=== PATIENT | female | born 1960 | race Caucasian/White ===

== ENCOUNTER 2018-09-03 02:21 | Outpatient (CLI) | payer MEDICAID, SELFPAY ==
--- NOTE | 2018-09-03 07:26 | DI.RAD_ITS ---
SYMPTOM/DIAGNOSIS: BILAT PAIN IN JOINTS, M25.541 BILATERAL HANDS: Three views of each hand were obtained. There is mild nonspecific demineralization of the bones. There is mild narrowing of IP cartilaginous joint spaces consistent with degenerative change. There are a few minimal osteophytes associated with the bones at the IP joints. No other significant abnormality is seen. 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
--- NOTE | 2018-09-03 08:00 | DI.US_ITS ---
SYMPTOM/DIAGNOSIS: LUQ ABD PAIN, R10.12 ABDOMEN ULTRASOUND: The visualized liver parenchyma is mildly echogenic raising the possibility of hepatic steatosis. No focal hepatic lesion identified. Some portions of the liver were not visualized due to body habitus. There is no evidence of cholelithiasis or biliary dilatation. Pancreas not well visualized. Abdominal aorta and IVC are of normal diameter. The kidneys are unremarkable in appearance except for presence of a couple of small echogenic foci with mild posterior acoustic shadowing in the right kidney, the possibility of non obstructing nephrolithiasis is raised. Spleen is unremarkable in appearance. CONCLUSION: No evidence of cholelithiasis. Question non obstructing right nephrolithiasis.
== END 2018-09-03 02:41 ==
PROVIDERS: PCP Nurse Practitioner Family; Visit Provider Nurse Practitioner Family
DX: R10.12 Left upper quadrant pain (principal); N28.9 Disorder of kidney and ureter, unspecified; M79.641 Pain in right hand; M79.642 Pain in left hand; M19.041 Primary osteoarthritis, right hand; M19.042 Primary osteoarthritis, left hand
CPT/HCPCS: 73130; 76700

== ENCOUNTER 2018-09-15 09:19 | Outpatient (REF) | payer MEDICAID, SELFPAY ==
[2018-09-15 13:21] LABS: ALT 29 U/L (12-78); AST 14 U/L (15-37); Albumin 3.8 g/dL (3.4-5.0); Alkaline Phosphatase 100 U/L (46-116); Anion Gap 8.5 mmol/L (3-11); BUN 16 mg/dL (7-18); Bilirubin, Total 0.4 mg/dL (0.2-1.0); CO2 28.5 mmol/L (21.0-32.0); CREATININE 0.98 mg/dL (0.55-1.02); Calcium 9.1 mg/dL (8.5-10.1); Chloride 105 mmol/L (98-107); Cholesterol 147 mg/dL (50-200); Estimated GFR 58.09 (mL/min/1.73m2); Glucose 122 mg/dL (70-100); HDL Cholesterol 53 mg/dL (40-60); LDL CHOLESTEROL 78 mg/dL (<100); Potassium 4.1 mmol/L (3.5-5.1); Sodium 142 mmol/L (136-145); Total Protein 6.7 g/dL (6.4-8.2); Triglyceride 117 mg/dL (30-150)
[2018-09-15 13:22] LABS: Abs Immature Grans 0.01 k/cumm (0.0-0.09); Absolute Basophil Count 0.02 k/cumm (0.0-0.2); Absolute Eosinophil Count 0.15 k/cumm (0.0-0.7); Absolute Lymphocyte Count 2.23 k/cumm (1.2-3.4); Absolute Monocyte Count 0.42 k/cumm (0.11-0.7); Absolute Neutrophil Count 1.65 k/cumm (1.2-6.7); Basophils % 0.4; Eosinophils % 3.3; HCT 41.2 % (36.0-46.0); HGB 13.6 g/dL (12.0-15.5); Immature Grans % 0.2; Lymphocytes % 49.8; Mean Corpuscular Hemoglobin 30.7 pg (27.0-33.0); Mean Platelet Volume 9.8 fL (8.0-11.0); Monocytes % 9.4; Neutrophils % 36.9; Platelet Count 270 x1000/uL (130-400); RBC 4.43 m/cumm (4.00-5.20); RBC Distribution Width 12.7 % (11.7-14.6); White Blood Cell Count 4.48 k/cumm (4.4-10.8)
[2018-09-15 13:46] LABS: COMMENT (LAB VIEW ONLY) 191.08 mg/dL
== END 2018-09-15 09:39 ==
LOC: NCHCN 09:19
PROVIDERS: PCP Nurse Practitioner Family; Visit Provider Nurse Practitioner Family
DX: E78.5 Hyperlipidemia, unspecified (principal); E11.9 Type 2 diabetes mellitus without complications
CPT/HCPCS: 80053; 80061; 83721; 82043; 82570; 85025

== ENCOUNTER 2018-09-24 19:50 | Emergency (ER) | payer MEDICAID, SELFPAY ==
[2018-09-24 19:53] VITALS: BP 144/85; PULSE 110; RESP 16; TEMP 36.6; O2SAT 98
[2018-09-24 20:00] VITALS: RESP 16
--- NOTE | 2018-09-24 20:04 | ED.GENADUL_ITS ---
Discharge Plan Disposition Patient Disposition: HOME Condition: Stable Discharge Details Chief Complaint: GenMedical Clinical Impression: Vertigo, Sinusitis Primary Care Provider: Everett Ramirez ED Provider: Reddy Brooks [place] Meds and New Rx's Prescriptions: New azithromycin 500 mg tablet See Rx Instructions .ROUTE .COMPLEX Qty: 6 RF: 0 meclizine 25 mg tablet 25 mg PO BID-TID PRN (Reason: dizziness) Qty: 14 RF: 0 No Action hydroxyzine pamoate 25 mg capsule 25 mg PO QID PRN (Reason: itching) Qty: 30 RF: 3 gabapentin 800 MG tablet 800 mg PO TID RF: 0 bupropion HCl [Wellbutrin XL] 150 MG tablet extended release 24 hr 150 mg PO DAILY RF: 0 diphenoxylate-atropine [Lomotil] 1 EACH tablet 1 - 2 ea PO Q 6 HR PRN RF: 0 docusate sodium [Colace] 100 MG capsule 100 mg PO BID RF: 0 SAD LIGHT DAILY RF: 0 dicyclomine 10 MG capsule 10 mg PO QID RF: 0 soy isofla-blk cohosh-mag bark [Estroven] 155 MG capsule 155 mg PO DAILY RF: 0 rizatriptan [Maxalt] 10 MG tablet 10 mg PO ONCE Qty: 8 RF: 2 ranitidine HCl 15 MG/1 ML syrup 150 mg PO DAILY RF: 0 cyproheptadine 4 MG tablet 2 mg PO HS Qty: 30 RF: 3 pediatric multivitamin [Gummi Bear Multivitamin] 1 EACH tablet,chewable 2 ea PO DAILY RF: 0 ondansetron HCl 4 MG tablet 1 - 2 mg PO Q8H PRN Qty: 90 RF: 3 glyburide 5 mg tablet 5 mg PO DAILY RF: 0 pramipexole 0.125 mg tablet 0.125 mg PO QHS RF: 0 dicyclomine 10 mg capsule 10 mg PO QID RF: 0 lidocaine 5 % ointment 1 applic TP BID-QID PRNRF: 0 sertraline 100 mg tablet 100 mg PO DAILY RF: 0 valacyclovir [Valtrex] 500 mg tablet 500 mg PO Q12H RF: 0 triamcinolone acetonide 0.1 % cream 1 applic TP BID PRNRF: 0 rizatriptan [Maxalt-HADOOP JAVA DEVELOPER] 10 mg tablet,disintegrating 10 mg PO ONCE PRNRF: 0 docusate sodium [Colace] 100 mg capsule 100 mg PO BID RF: 0 nystatin 100,000 unit/gram powder 1 applic TP TID RF: 0 polyethylene glycol 3350 [Miralax] 17 gram/dose powder 17 gm PO DAILY RF: 0 sertraline 50 mg tablet 50 mg PO DAILY RF: 0 bupropion HCl [Wellbutrin XL] 150 mg tablet extended release 24 hr 450 mg PO QAM RF: 0 Advair HFA 230-21 mcg/actuation HFA aerosol inhaler 2 puff IH BID RF: 0 riboflavin (vitamin B2) 100 mg tablet 200 mg PO BID RF: 0 loperamide [Anti-Diarrhea] 2 MG tablet 2 mg PO PRN PRNRF: 0 fluticasone propion-salmeterol [Advair Diskus] 1 EACH blister with device 1 ea Inhalation BID RF: 0 docusate sodium [Colace] 100 MG capsule 100 mg PO PRN PRNRF: 0 lorazepam [Ativan] 1 MG tablet 1 mg PO TID PRN PRNRF: 0 levalbuterol tartrate [Xopenex HFA] 15 GM HFA aerosol inhaler 15 gm Inhalation Q6H PRN PRNRF: 0 nystatin (bulk) 1 EACH powder 1 ea Miscellaneous TID PRN PRNRF: 0 esomeprazole magnesium [Nexium] 20 MG capsule,delayed release(DR/EC) 40 mg PO BID RF: 0 calcium carbonate-vitamin D3 [Calcium 500 + D] 1 EACH tablet 1 tab PO DAILY RF: 0 montelukast [Singulair] 10 MG tablet 10 mg PO HS RF: 0 omega-3 fatty acids-fish oil [Fish Oil] 1 EACH capsule 1,000 mg PO PRN PRNRF: 0 meclizine [Antivert] 25 MG tablet 25 mg PO Q6H PRNQty: 30 RF: 0 Discharge Instructions Instructions: Vertigo (ED) Additional Instructions: follow up with your primary care provider in 1-2 weeks if not improving if you develop severe worsening symptoms or new symptoms such as high fevers or persistent vomit return to the emergency department Medical Decision Making 58 yo female states she has a hx of veritog and migraines and comes in with complaint of i ntermittent feeling the room spinning especially with head turning, and nasal congestion for 2 weeks with sinus pressure. Denies fevers, chills, weakness, vision changes. Also has a mild frontal headache she states started slowly earlier today and feels similar to her prior migraines. No meningismus on exam and appears well systemically so doubt statistical technician infection, no cranial nerve deficits and no other findings to suggest cerebral venous thrombosis or central sinus thrombosis. Reassuring hints exam, normal gait so doubt cva, I suspect benign vertigo and will tx with meclizine. Given over 10 days of sinus pressure and has maxillary tenderness here will tx with abx. She will f/u with pcp and return precautions given. Her headache is not worse of her life and did not reach peak intensity quickly so doubt sah Differential Diagnosis sinusitis, benign vertigo, tensin headache HPI General Mode of arrival: ambulatory . Date/Time Provider Initiated Documentation: 09/24/18 19:54 . Limitations to Documentation: no limitations . Information obtained by: patient . History of Present Illness 58 year old F presents to the emergency department with the chief complaint of sinus pressure, described as moderate, Quality is described as aching, and is localized to the face. Patient reports no radiation. Patient started experiencing this week(s) (2) and it has been constant. No relieving factors improve symptom(s), No exacerbating factors reported . Related Data Home Medications Medication Instructions Recorded Confirmed docusate sodium [Colace] 100 mg PO PRN PRN 10/29/12 02/08/18 fluticasone propion-salmeterol 1 ea INHALATION BID 10/29/12 02/08/18 [Advair Diskus] levalbuterol tartrate [Xopenex HFA] 15 gm INHALATION Q6H PRN PRN 10/29/12 02/08/18 loperamide [Anti-Diarrhea] 2 mg PO PRN PRN 10/29/12 02/08/18 lorazepam [Ativan] 1 mg PO TID PRN PRN 10/29/12 02/08/18 nystatin (bulk) 1 ea MISCELLANEOUS TID PRN PRN 10/29/12 02/08/18 esomeprazole magnesium [Nexium] 40 mg PO BID 02/15/13 02/08/18 calcium carbonate-vitamin D3 1 tab PO DAILY 11/03/13 02/08/18 [Calcium 500 + D] montelukast [Singulair] 10 mg PO HS 09/22/14 02/08/18 omega-3 fatty acids-fish oil [Fish 1,000 mg PO PRN PRN 09/22/14 02/08/18 Oil] bupropion HCl [Wellbutrin Xl] 150 mg PO DAILY tab-cap 06/20/15 02/08/18 gabapentin 800 mg PO TID tab-cap 06/20/15 02/08/18 meclizine [Antivert] 25 mg PO Q6H PRN #30 tab 02/09/16 02/08/18 Sad Light DAILY 04/09/17 02/08/18 diphenoxylate-atropine [Lomotil] 1 - 2 ea PO Q 6 HR PRN tab-cap 04/09/17 02/08/18 docusate sodium [Colace] 100 mg PO BID tab-cap 04/09/17 02/08/18 dicyclomine 10 mg PO QID tab-cap 04/30/17 02/08/18 rizatriptan [Maxalt] 10 mg PO ONCE #8 tab 12/01/17 soy isofla-blk cohosh-mag bark 155 mg PO DAILY 12/01/17 02/08/18 [Estroven 155 Mg Capsule] ranitidine HCl 150 mg PO DAILY ml 12/21/17 02/08/18 cyproheptadine 2 mg PO HS #30 tab-cap 01/04/18 ondansetron HCl 1 - 2 mg PO Q8H PRN #90 tab-cap 01/11/18 pediatric multivitamin [Gummi Bear 2 ea PO DAILY tab.chew 01/11/18 02/08/18 Multivitamin] hydroxyzine pamoate 25 mg capsule 25 mg PO QID PRN #30 cap 02/08/18 02/08/18 bupropion HCl XL 150 mg 24 hr 450 mg PO QAM tab 09/07/18 tablet, extended release dicyclomine 10 mg capsule 10 mg PO QID 09/07/18 docusate sodium 100 mg capsule 100 mg PO BID 09/07/18 fluticasone propionate-salmeterol 2 puff IH BID 09/07/18 230 mcg-21 mcg/actuation HFA inhaler glyburide 5 mg tablet 5 mg PO DAILY 09/07/18 lidocaine 5 % topical ointment 1 applic TP BID-QID PRN 09/07/18 nystatin 100,000 unit/gram topical 1 applic TP TID 09/07/18 powder polyethylene glycol 3350 17 17 gm PO DAILY 09/07/18 gram/dose oral powder pramipexole 0.125 mg tablet 0.125 mg PO QHS 09/07/18 riboflavin (vitamin B2) 100 mg 200 mg PO BID tab 09/07/18 tablet rizatriptan 10 mg disintegrating 10 mg PO ONCE PRN 09/07/18 tablet sertraline 100 mg tablet 100 mg PO DAILY 09/07/18 sertraline 50 mg tablet 50 mg PO DAILY 09/07/18 triamcinolone acetonide 0.1 % 1 applic TP BID PRN 09/07/18 topical cream valacyclovir 500 mg tablet 500 mg PO Q12H 09/07/18 azithromycin See Rx Instructions .ROUTE 09/24/18 .COMPLEX #6 tab meclizine 25 mg PO BID-TID PRN #14 tab 09/24/18 Previous Rx's Medication Instructions Recorded meclizine [Antivert] 25 mg PO Q6H PRN #30 tab 02/09/16 rizatriptan [Maxalt] 10 mg PO ONCE #8 tab 12/01/17 cyproheptadine 2 mg PO HS #30 tab-cap 01/04/18 ondansetron HCl 1 - 2 mg PO Q8H PRN #90 tab-cap 01/11/18 hydroxyzine pamoate 25 mg capsule 25 mg PO QID PRN #30 cap 02/08/18 azithromycin See Rx Instructions .ROUTE 09/24/18 .COMPLEX #6 tab meclizine 25 mg PO BID-TID PRN #14 tab 09/24/18 Allergies Allergy/AdvReac Type Severity Reaction Status Date / Time peanut Allergy Severe feels Unverified 02/08/18 13:50 like I am going to choke sertraline [From Zoloft] Allergy Severe Verified 09/07/18 14:15 clonazepam Allergy Intermediate I CAN'T Unverified 02/08/18 13:50 BREATHE TOO GOOD Sulfa (Sulfonamide Allergy Intermediate I CAN'T Unverified 02/08/18 13:50 Antibiotics) BREATHE GOOD, IT PATTERSON ME amoxicillin Allergy Unknown Unverified 02/08/18 13:50 ciprofloxacin [From Cipro] Allergy Unknown Unverified 02/08/18 13:50 ciprofloxacin HCl Allergy Unknown Unverified 02/08/18 13:50 [From Cipro] doxycycline Allergy Unknown Unverified 02/08/18 13:50 sulfamethoxazole Allergy Unknown unknown Unverified 02/08/18 13:50 [From Bactrim] trimethoprim [From Bactrim] Allergy Unknown unknown Unverified 02/08/18 13:50 paroxetine HCl [From Paxil] AdvReac Severe chest pain Unverified 02/08/18 13:50 Penicillins AdvReac Severe Unverified 02/08/18 13:50 aspirin AdvReac Intermediate IT PATTERSON Unverified 02/08/18 13:50 MY STOMACH duloxetine HCl AdvReac Intermediate suicidal Unverified 02/08/18 13:50 [From Cymbalta] ideation fluoxetine HCl [From Prozac] AdvReac Intermediate Skin Rash Unverified 02/08/18 13:50 latex AdvReac Intermediate Skin Rash Unverified 02/08/18 13:50 pregabalin [From Lyrica] AdvReac Unknown unknown Unverified 02/08/18 13:50 risperidone [From Risperdal] AdvReac Unknown unknown Unverified 02/08/18 13:50 venlafaxine HCl AdvReac Unknown unknown Unverified 02/08/18 13:50 [From Effexor] TRAZADONE Allergy Unknown Uncoded 02/08/18 13:50 Review of Systems Review of Systems All systems reviewed & are unremarkable except as noted in HPI and below Constitutional Denies chills, Denies fever(s) and Denies weakness ENT Denies change in voice Cardiovascular Denies chest pain and Denies dyspnea Respiratory Denies dyspnea Gastrointestinal Denies abdominal pain and Denies vomiting Musculoskeletal Denies joint swelling Integumentary/Breasts Denies rash Neurologic Denies weakness [facility] [place] Medical History Diabetic peripheral neuropathy associated with type 2 diabetes mellitus (Chronic) Restless leg syndrome (Chronic) Essential tremor (Chronic) Developmental delay, mild (Chronic) Tardive dyskinesia (Chronic) Obstructive sleep apnea on CPAP (Chronic) Fibromyalgia (Chronic) Chronic fatigue (Chronic) IBS (irritable bowel syndrome) (Chronic) Anxiety (Chronic) Hyperlipidemia (Chronic) History of tobacco use (Chronic) Asthma (Chronic) PTSD (post-traumatic stress disorder) (Chronic) Prediabetes (Chronic) Depression (Chronic) History of concussion (Chronic) GERD (gastroesophageal reflux disease) (Chronic) Chronic low back pain (Chronic) 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) Nausea (Chronic 01/11/18) Intractable migraine with aura without status migrainosus (Chronic 01/11/18) Chronic daily headache (Chronic 01/11/18) Abdominal pain (Acute) Adjustment disorder with depressed mood (Acute) Allergic rhinitis (Acute) Anxiety disorder (Acute) Back pain (Acute) Phillips angioma (Acute) Daytime somnolence (Acute) Diabetes mellitus type 2 in obese (Acute) Facial skin lesion (Acute) Genital herpes (Acute) Head injury (Acute) Joint pain in fingers of left hand (Acute) Joint pain in fingers of right hand (Acute) Memory deficit (Acute) Panic disorder (Acute) Plantar fasciitis (Acute) Rosacea (Acute) Seasonal allergies (Acute) Migraine (Chronic) Obesity (Chronic) Parkinsons disease (Chronic) Family History Sister Diabetes Migraine headache Daughter Stroke Other Breast cancer Hyperlipidemia Social History Smoking/Tobacco Use Status: Former Tobacco Use Alcohol Intake: never Drug use: Never Household members: significant other Do you feel safe at home: Yes Do you feel safe in your relationship?: Yes Additional Social history: She lives with her boyfriend and has 2 adult daughters. She is disabled from her chronic back pain and mood disorder. She does not use tobacco products, drink alcohol, or use illicit drugs Exam Const General: no acute distress Orientation: alert HENMT Head: normal to inspection Ears: external ears normal General nose exam: external nose normal Mouth: moist mucous membranes Eyes General: appearance normal, both eyes and all related structures Neck Neck: normal visual inspection Resp Effort & Inspection: normal respiratory effort and able to speak in complete sentences Cardio Rate: regular rate Skin General skin exam: no rashes or lesions noted Neuro General: alert and oriented x3 Extrem General: normal to inspection Psych Mental Status: mental status grossly normal
[2018-09-24] MEDS: Ketorolac 30 MG/ML VIAL IM (20:11)
[2018-09-24] MEDS: Meclizine 25 MG TAB PO (20:12)
[2018-09-24 20:42] VITALS: BP 144/85; PULSE 110; RESP 16; TEMP 36.6; O2SAT 98
== END 2018-09-24 20:12 | disposition home or self-care (01) ==
LOC: ER 20:08
PROVIDERS: Emergency Provider Emergency Medicine; PCP Nurse Practitioner Family
DX: J01.00 Acute maxillary sinusitis, unspecified (principal); R42 Dizziness and giddiness; R51 Headache; E11.9 Type 2 diabetes mellitus without complications; G20 Parkinson's disease
CPT/HCPCS: 96372; 99284; J1885

== ENCOUNTER 2018-12-16 14:15 | Outpatient (CLI) | payer MEDICAID, SELFPAY ==
--- NOTE | 2018-12-16 11:58 | DI.RAD_ITS ---
SYMPTOM/DIAGNOSIS: LEFT KNEE PAIN, RT KNEE PAIN LEFT KNEE: No bony or joint abnormality is seen. RIGHT KNEE: No bony or joint abnormality is seen.
== END 2018-12-16 14:35 ==
PROVIDERS: PCP Nurse Practitioner Family; Visit Provider Physician Assistant
DX: M25.561 Pain in right knee (principal); M25.562 Pain in left knee
CPT/HCPCS: 73560

== ENCOUNTER 2019-02-15 17:39 | Outpatient (REF) | payer MEDICAID, SELFPAY ==
--- NOTE | 2019-02-15 16:30 | PAPFT_PTH ---
PATIENT: Pinky Taylor LOC: [facility] U#:[id number] AGE/SX: 59/F ROOM: RE02/15/[address]: Everett Ramirez : 1960 BED: DIS: 02/15/2019 SPEC #: [id number] RECD: 02/16/19 12:56 STATUS: ASHLEY REQ #: [id number] LUNA: 02/15/19 16:[address]: Everett Ramirez DEPT: [facility] Cytology RECD BY: Cathi Cobb Tissues: 1 - CX/ENDOCX FOR PAP SMEARS Procedures: PAP THIN PREP/UVM Screening HPV DNA PROBE Comments: [id number]
[2019-02-15 18:34] LABS: HCT 44.8 % (36.0-46.0); HGB 14.8 g/dL (12.0-15.5); Mean Corpuscular Hemoglobin 30.5 pg (27.0-33.0); Mean Corpuscular Volume 92.2 fL (80-95); Mean Platelet Volume 10.5 fL (8.0-11.0); Platelet Count 289 x1000/uL (130-400); RBC 4.86 m/cumm (4.00-5.20); RBC Distribution Width 12.4 % (11.7-14.6); White Blood Cell Count 4.75 k/cumm (4.4-10.8)
[2019-02-15 18:39] LABS: Anion Gap 8.9 mmol/L (3-11); BUN 14 mg/dL (7-18); CO2 28.1 mmol/L (21.0-32.0); CREATININE 0.73 mg/dL (0.55-1.02); Calcium 9.1 mg/dL (8.5-10.1); Chloride 107 mmol/L (98-107); Glucose 101 mg/dL (70-100); Sodium 144 mmol/L (136-145)
== END 2019-02-15 17:59 ==
LOC: NCHCN 17:39
PROVIDERS: PCP Nurse Practitioner Family; Visit Provider Nurse Practitioner Family
DX: E11.9 Type 2 diabetes mellitus without complications (principal); R10.12 Left upper quadrant pain; Z12.4 Encounter for screening for malignant neoplasm of cervix; Z11.51 Encounter for screening for human papillomavirus (HPV)
CPT/HCPCS: 80048; 85027; 88142; 87624

== ENCOUNTER 2019-05-16 14:15 | Outpatient (REF) | payer MEDICAID, SELFPAY ==
[2019-05-16 19:49] LABS: HCT 43.8 % (36.0-46.0); HGB 14.5 g/dL (12.0-15.5); Mean Corp. HGB Concentration 33.1 g/dL (32.0-36.0); Mean Corpuscular Hemoglobin 30.3 pg (27.0-33.0); Mean Corpuscular Volume 91.4 fL (80-95); Mean Platelet Volume 10.4 fL (8.0-11.0); Platelet Count 301 x1000/uL (130-400); RBC 4.79 m/cumm (4.00-5.20); RBC Distribution Width 12.4 % (11.7-14.6); White Blood Cell Count 4.81 k/cumm (4.4-10.8)
[2019-05-16 20:03] LABS: Prothrombin Time 9.7 sec (9.3-11.0)
[2019-05-16 20:05] LABS: Iron 100 ug/dL (50-170); Total Iron Binding Capacity 257 ug/dL (250-450); Transferrin Sat 39 % (15-50)
[2019-05-16 20:20] LABS: Vitamin D 25 Total 26.4 ng/ml (30-100)
[2019-05-16 20:26] LABS: ALT 28 U/L (14-59); AST 15 U/L (15-37); Alkaline Phosphatase 116 U/L (46-116); Anion Gap 8.9 mmol/L (3-11); BUN 10 mg/dL (7-18); Bilirubin, Total 0.4 mg/dL (0.2-1.0); CO2 28.1 mmol/L (21.0-32.0); CREATININE 0.76 mg/dL (0.55-1.02); Calcium 9.1 mg/dL (8.5-10.1); Chloride 108 mmol/L (98-107); Ferritin 91 ng/mL (8-252); Glucose 122 mg/dL (74-106); Potassium 3.9 mmol/L (3.5-5.1); Sodium 145 mmol/L (136-145); TSH (W/Ref FT4) 0.79 uIU/mL (0.36-3.74); Total Protein 6.5 g/dL (6.4-8.2); Vitamin B12 668 pg/mL (193-986)
== END 2019-05-16 14:35 ==
LOC: NCHCN 14:15
PROVIDERS: PCP Nurse Practitioner Family; Visit Provider Nurse Practitioner Family
DX: G47.00 Insomnia, unspecified (principal); E11.9 Type 2 diabetes mellitus without complications; R41.3 Other amnesia; R42 Dizziness and giddiness; F41.8 Other specified anxiety disorders
CPT/HCPCS: 80053; 82306; 85027; 82607; 82728; 82746; 83540; 83550; 84443; 85610

== ENCOUNTER 2019-06-15 00:13 | Outpatient (CLI) | payer MEDICAID, SELFPAY ==
--- NOTE | 2019-06-15 14:51 | DI.MAMMO_ITS ---
EXAM: MG MAMMO SCREENING CLINICAL HISTORY: SCREENING Z12.39. TECHNIQUE: Bilateral full field digital CC and MLO mammographic images were obtained with 3D tomosyn thesis and utilizing computer aided detection (CAD). COMPARISON: Available for comparison. FINDINGS: Masses/Architectural Distortion: There is a focal asymmetric density in the upper central right breas t seen on the mediolateral oblique view. Asymmetric density in the medial left breast appears stable . Microcalcifications: No suspicious pleomorphic-type are seen. Skin Thickening/Nipple Retraction: None. IMPRESSION: 1. Focal asymmetric density in the upper central right breast. 2. Additional views of the right breast are requested for further evaluation. Ultrasound may be jess cated at that time. BI-RADS Cat 0 - Assessment Incomplete: Need additional imaging evaluation Breast Density - Category B - Scattered areas of fibroglandular density A negative radiographic report should not delay biopsy if a dominant or clinically suspicious mass is present. Up to ten percent of cancers are not identified on mammography. A negative report may reinforce clinical impression. Adenosis and dense breasts may obscure an underlying neoplasm. False positive reports average 6 to 10%. Patient will receive a letter notifying them of these results.
== END 2019-06-15 00:33 ==
PROVIDERS: PCP Nurse Practitioner Family; Visit Provider Nurse Practitioner Family
DX: Z12.31 Encounter for screening mammogram for malignant neoplasm of breast (principal); R92.8 Other abnormal and inconclusive findings on diagnostic imaging of breast
CPT/HCPCS: 77063; 77067

== ENCOUNTER 2019-06-18 14:56 | Emergency (ER) | payer MEDICAID, SELFPAY ==
[2019-06-18] VITALS (39 sets, daily range): BP systolic 113–151; BP diastolic 69–95; PULSE 78–92; RESP 8–20; TEMP 36.9–37.1; O2SAT 95–100
--- NOTE | 2019-06-18 15:04 | ED.GENADUL_ITS ---
Discharge Plan Disposition Patient Disposition: HOME Discharge Details Chief Complaint: Chest Pain Clinical Impression: Chest pain Primary Care Provider: Everett Ramirez ED Provider: Dragan Carlson Home Meds and New Rx's Prescriptions: Continued hydroxyzine pamoate 25 mg capsule 25 mg PO QID PRN (Reason: itching) Qty: 30 RF: 3 aluminum hydrox-magnesium carb 160-105 mg tablet,chewable 2 tab PO BID RF: 0 Aimovig Autoinjector 70 mg/mL auto-injector 70 mg SC QMONTH Qty: 1 RF: 2 gabapentin 800 MG tablet 800 mg PO TID RF: 0 diphenoxylate-atropine [Lomotil] 1 EACH tablet 1 - 2 ea PO Q 6 HR PRN RF: 0 docusate sodium [Colace] 100 MG capsule 100 mg PO BID RF: 0 SAD LIGHT DAILY RF: 0 dicyclomine 10 MG capsule 10 mg PO QID RF: 0 glyburide 5 mg tablet 5 mg PO DAILY RF: 0 lidocaine 5 % ointment 1 applic TP BID-QID PRNRF: 0 sertraline 100 mg tablet 100 mg PO DAILY RF: 0 valacyclovir [Valtrex] 500 mg tablet 500 mg PO Q12H RF: 0 polyethylene glycol 3350 [Miralax] 17 gram/dose powder 17 gm PO DAILY RF: 0 sertraline 50 mg tablet 50 mg PO DAILY RF: 0 Advair HFA 230-21 mcg/actuation HFA aerosol inhaler 2 puff IH BID RF: 0 eletriptan 20 mg tablet See Rx Instructions PO .COMPLEX Qty: 14 RF: 5 loperamide [Anti-Diarrhea] 2 MG tablet 2 mg PO PRN PRNRF: 0 fluticasone propion-salmeterol [Advair Diskus] 1 EACH blister with device 1 ea Inhalation BID RF: 0 lorazepam [Ativan] 1 MG tablet 1 mg PO TID PRN PRNRF: 0 levalbuterol tartrate [Xopenex HFA] 15 GM HFA aerosol inhaler 15 gm Inhalation Q6H PRN PRNRF: 0 nystatin (bulk) 1 EACH powder 1 ea Miscellaneous TID PRN PRNRF: 0 calcium carbonate-vitamin D3 [Calcium 500 + D] 1 EACH tablet 1 tab PO DAILY RF: 0 montelukast [Singulair] 10 MG tablet 10 mg PO HS RF: 0 meclizine [Antivert] 25 MG tablet 25 mg PO Q6H PRNQty: 30 RF: 0 fexofenadine 180 mg Tablet 1 mg PO DAILY RF: 0 simvastatin 20 mg Tablet 20 mg PO QHS RF: 0 Discharge Instructions Instructions: Chest Pain (ED) Additional Instructions: You were seen for evaluation of chest pain. You should follow-up with your primary care provider. Call on Thursday to schedule an appointment. Return to the emergency department immediately if you develop any fevers, weakness, passing out, or for any other concerning or worsening symptoms at all. Referrals: Everett Ramirez NP [Primary Care Provider] - Discharge Data Discharge Date/Time-TO BE ENTERED AT DEPARTURE: 06/18/19 19:30 Medical Decision Making <Dionicio Moreno MD - Last Filed: 06/18/19 15:45> This patient is a 59-year-old female who presents to the emergency department with chief complaint of chest pain. Based on the history, exam, review of the medical records, this is likely due to stress. However, acute coronary syndrome, pneumonia, pneumothorax should be evaluated with blood work, chest x- ray. EKG is reassuring at this point. It shows no evidence of ischemia. She will need an initial troponin and then a repeat troponin prior to being discharged home. I will sign out the care of this patient to Dr. Carlson at change of shift. Pending troponins and chest x-ray. Medical Records Medical records reviewed: Yes I reviewed the patient's medical records. ECG Data Attestation: I personally reviewed and interpreted this ECG (s) as follows: (Showing sinus rhythm, rate of 89, no ST elevation or depression, no Wellens warning, normal intervals.) <Dragan Carlson MD - Last Filed: 07/12/19 17:01> 16:00 -- Care signed out by Dr. Moreno with plan to follow-up on initial troponin, plan for delta troponin and repeat ECG. 18:35 --chest x-ray interpreted by radiology: No acute findings. Troponin and delta troponin negative. Repeat ECG at 1814 was reviewed and interpreted by me: Normal sinus rhythm 75 bpm, normal axis, single T wave inversion noted in V2 that was not present on prior ECG, upraight V1. Suspect erroneous, inverted lead placement. Repeat ECG at 1837 was reviewed and interpreted by me: Normal sinus rhythm 81 bpm, no T wave inversion present. Considered machine error. Repeat ECG at 1845 was reviewed and interpreted by me: Normal sinus rhythm 82 bpm, no T wave inversion. Usual and customary discharge instructions were provided. HPI <Dionicio Moreno MD - Last Filed: 06/18/19 15:45> Well I am having pain. This patient is a 59-year-old female who presents to the emergency department with chief complaint of chest pain that started yesterday. It is intermittent. It lasts for approximately 15 minutes when it does come on. She cannot describe what it feels like. It is located retrosternally. Sometimes it radiates to the left shoulder. She denies shortness of breath. She has a history of infrequent palpitations. Nothing seems to make it come on or go away. She states that it is likely due to stress from having to deal with her daughter. She states that she has been arguing with her daughter. She denies any other recent illness such as fever, cough, abdominal pain, vomiting or diarrhea. She has had pain like this previously. She attributes it to stress previously. General Date/Time Provider Initiated Documentation: 06/18/19 15:04 . Related Data Home Medications Medication Instructions Recorded Confirmed fluticasone propion-salmeterol 1 ea INHALATION BID 10/29/12 06/30/19 [Advair Diskus] levalbuterol tartrate [Xopenex HFA] 15 gm INHALATION Q6H PRN PRN 10/29/12 06/30/19 loperamide [Anti-Diarrhea] 2 mg PO PRN PRN 10/29/12 06/30/19 lorazepam [Ativan] 1 mg PO TID PRN PRN 10/29/12 06/30/19 nystatin (bulk) 1 ea MISCELLANEOUS TID PRN PRN 10/29/12 06/30/19 calcium carbonate-vitamin D3 1 tab PO DAILY 11/03/13 06/30/19 [Calcium 500 + D] montelukast [Singulair] 10 mg PO HS 09/22/14 06/30/19 gabapentin 800 mg PO TID tab-cap 06/20/15 06/30/19 meclizine [Antivert] 25 mg PO Q6H PRN #30 tab 02/09/16 06/30/19 Sad Light DAILY 04/09/17 05/09/19 diphenoxylate-atropine [Lomotil] 1 - 2 ea PO Q 6 HR PRN tab-cap 04/09/17 06/30/19 docusate sodium [Colace] 100 mg PO BID tab-cap 04/09/17 06/30/19 dicyclomine 10 mg PO QID tab-cap 04/30/17 06/30/19 hydroxyzine pamoate 25 mg capsule 25 mg PO QID PRN #30 cap 02/08/18 06/30/19 fluticasone propionate 230 2 puff IH BID 09/07/18 06/30/19 mcg-salmeterol 21 mcg/actuation HFA inhaler glyburide 5 mg tablet 5 mg PO DAILY 09/07/18 06/30/19 lidocaine 5 % topical ointment 1 applic TP BID-QID PRN 09/07/18 06/30/19 polyethylene glycol 3350 17 17 gm PO DAILY 09/07/18 06/30/19 gram/dose oral powder sertraline 100 mg tablet 100 mg PO DAILY 09/07/18 06/30/19 sertraline 50 mg tablet 50 mg PO DAILY 09/07/18 06/30/19 valacyclovir 500 mg tablet 500 mg PO Q12H 09/07/18 06/30/19 eletriptan 20 mg tablet See Rx Instructions PO .COMPLEX 10/22/18 06/30/19 #14 tab aluminum hydrox-magnesium carb 160 2 tab PO BID 05/09/19 06/30/19 mg-105 mg chewable tablet erenumab-aooe 70 mg/mL 70 mg SC QMONTH #1 each 05/09/19 06/30/19 subcutaneous auto-injector fexofenadine 1 mg PO DAILY 06/18/19 06/30/19 simvastatin 20 mg PO QHS 06/18/19 06/30/19 Previous Rx's Medication Instructions Recorded meclizine [Antivert] 25 mg PO Q6H PRN #30 tab 02/09/16 hydroxyzine pamoate 25 mg capsule 25 mg PO QID PRN #30 cap 02/08/18 eletriptan 20 mg tablet See Rx Instructions PO .COMPLEX 10/22/18 #14 tab erenumab-aooe 70 mg/mL 70 mg SC QMONTH #1 each 05/09/19 subcutaneous auto-injector Allergies Allergy/AdvReac Type Severity Reaction Status Date / Time peanut Allergy Severe feels Unverified 06/30/19 14:38 like I am going to choke sertraline [From Zoloft] Allergy Severe Verified 06/30/19 14:38 clonazepam Allergy Intermediate I CAN'T Unverified 06/30/19 14:38 BREATHE TOO GOOD Sulfa (Sulfonamide Allergy Intermediate I CAN'T Unverified 06/30/19 14:38 Antibiotics) BREATHE GOOD, IT PATTERSON ME amoxicillin Allergy Unknown Unverified 06/30/19 14:38 ciprofloxacin [From Cipro] Allergy Unknown Unverified 06/30/19 14:38 ciprofloxacin HCl Allergy Unknown Unverified 06/30/19 14:38 [From Cipro] doxycycline Allergy Unknown Unverified 06/30/19 14:38 sulfamethoxazole Allergy Unknown unknown Unverified 06/30/19 14:38 [From Bactrim] trimethoprim [From Bactrim] Allergy Unknown unknown Unverified 06/30/19 14:38 paroxetine HCl [From Paxil] AdvReac Severe chest pain Unverified 06/30/19 14:38 Penicillins AdvReac Severe Unverified 06/30/19 14:38 aspirin AdvReac Intermediate IT PATTERSON Unverified 06/30/19 14:38 MY STOMACH duloxetine HCl AdvReac Intermediate suicidal Unverified 06/30/19 14:38 [From Cymbalta] ideation fluoxetine HCl [From Prozac] AdvReac Intermediate Skin Rash Unverified 06/30/19 14:38 latex AdvReac Intermediate Skin Rash Unverified 06/30/19 14:38 pregabalin [From Lyrica] AdvReac Unknown unknown Unverified 06/30/19 14:38 risperidone [From Risperdal] AdvReac Unknown unknown Unverified 06/30/19 14:38 venlafaxine HCl AdvReac Unknown unknown Unverified 06/30/19 14:38 [From Effexor] TRAZADONE Allergy Unknown Uncoded 06/30/19 14:38 General Stated Complaint: Chest Pain DAVID: 2 <Dragan Carlson MD - Last Filed: 07/12/19 17:01> Well I am having pain. This patient is a 59-year-old female who presents to the emergency department with chief complaint of chest pain that started yesterday. It is intermittent. It lasts for approximately 15 minutes when it does come on. She cannot describe what it feels like. It is located retrosternally. Sometimes it radiates to the left shoulder. She denies shortness of breath. She has a history of infrequent palpitations. Nothing seems to make it come on or go away. She states that it is likely due to stress from having to deal with her daughter. She states that she has been arguing with her daughter. She denies any other recent illness such as fever, cough, abdominal pain, vomiting or diarrhea. She has had pain like this previously. She attributes it to stress previously. Review of Systems <Dionicio Moreno MD - Last Filed: 06/18/19 15:45> Narrative: Gen: no fevers. Card: chest pain. Resp: No cough, difficulty breathing. Abd: no vomiting, abd pain. The rest of the 10 point review of systems is negative except as described in the HPI and above in the ROS. PFSH <Dionicio Moreno MD - Last Filed: 06/18/19 15:45> Medical History Abdominal pain (Acute) Adjustment disorder with depressed mood (Acute) Allergic rhinitis (Acute) Anxiety (Chronic) Asthma (Chronic) Back pain (Acute) Phillips angioma (Acute) Chronic daily headache (Chronic 01/11/18) Chronic fatigue (Chronic) Chronic low back pain (Chronic) Daytime somnolence (Acute) Depression (Chronic) Developmental delay, mild (Chronic) Diabetes mellitus type 2 in obese (Acute) Diabetic peripheral neuropathy associated with type 2 diabetes mellitus (Chronic) Essential tremor (Chronic) Facial skin lesion (Acute) Fibromyalgia (Chronic) Genital herpes (Acute) GERD (gastroesophageal reflux disease) (Chronic) Head injury (Acute) History of concussion (Chronic) History of tobacco use (Chronic) Hyperlipidemia (Chronic) IBS (irritable bowel syndrome) (Chronic) Intractable migraine with aura without status migrainosus (Chronic 01/11/18) Joint pain in fingers of left hand (Acute) Joint pain in fingers of right hand (Acute) Memory deficit (Acute) Migraine (Chronic) Nausea (Chronic 01/11/18) Obesity (Chronic) Obstructive sleep apnea on CPAP (Chronic) 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) Panic disorder (Acute) Parkinsons disease (Chronic) Plantar fasciitis (Acute) Prediabetes (Chronic) PTSD (post-traumatic stress disorder) (Chronic) Restless leg syndrome (Chronic) Rosacea (Acute) Seasonal allergies (Acute) Tardive dyskinesia (Chronic) Family History Sister Diabetes Migraine headache Daughter Stroke Other Breast cancer Hyperlipidemia Social History Smoking/Tobacco Use Status: Former Tobacco Use Alcohol Intake: never Drug use: Never Substance use type: does not use Household members: significant other Do you feel safe at home: Yes Do you feel safe in your relationship?: Yes Additional Social history: She lives with her boyfriend and has 2 adult daughters. She is disabled from her chronic back pain and mood disorder. She does not use tobacco products, drink alcohol, or use illicit drugs Exam <Dionicio Moreno MD - Last Filed: 06/18/19 15:45> Narrative Exam Narrative: Gen: no acute distress, alert. Eyes: Pupils equal, reactive to light, EOMs intact. ENT: nose and ears normal, posterior pharynx without injection or swelling. Neck: normal ROM. Lung: Clear to auscultation bilaterally, no respiratory distress. Card: RRR, normal S1, S2, no M/R/G. 2+ radial pulses bilaterally. Abd: soft, non-tender, no hepatosplenomegaly. Upper extremity: no evidence of trauma. Lower extremity: no edema. Neuro: speech normal, no gross motor deficits. Psych: alert and oriented to person, place time, normal affect. Skin: warm, intact. Course <Dionicio Moreno MD - Last Filed: 06/18/19 15:45> Vital Signs Vital signs: Vital Signs Temperature 37.1 C 06/18/19 14:56 Pulse 86 06/18/19 14:56 Respiratory Rate 16 06/18/19 14:56 Blood Pressure 130/83 06/18/19 14:56 Pulse Oximetry 99 06/18/19 14:56 Temperature 37.1 C 06/18/19 14:56 Temperature Source Skin 06/18/19 14:56 Pulse 86 06/18/19 14:56 Respiratory Rate 16 06/18/19 14:56 Blood Pressure 130/83 06/18/19 14:56 Blood Pressure Position Sitting 06/18/19 14:56 Pulse Oximetry 99 06/18/19 14:56 Oxygen Delivery Method Room Air 06/18/19 14:56 Oxygen Flow Rate 0 06/18/19 14:56 Sign Out <Dionicio Moreno MD - Last Filed: 06/18/19 15:45> Sign Out Data: Sign Out Comment: See note. Last updated by Dionicio Moreno MD at 06/18/19 15:37
[2019-06-18 15:14] LABS: Abs Immature Grans 0.01 k/cumm (0.0-0.09); Absolute Basophil Count 0.02 k/cumm (0.0-0.2); Absolute Eosinophil Count 0.14 k/cumm (0.0-0.7); Absolute Lymphocyte Count 2.06 k/cumm (1.2-3.4); Absolute Monocyte Count 0.52 k/cumm (0.11-0.7); Absolute Neutrophil Count 1.88 k/cumm (1.2-6.7); Basophils % 0.4; HCT 45.2 % (36.0-46.0); HGB 15.3 g/dL (12.0-15.5); Immature Grans % 0.2 %; Lymphocytes % 44.5; Mean Corp. HGB Concentration 33.8 g/dL (32.0-36.0); Mean Corpuscular Hemoglobin 30.5 pg (27.0-33.0); Mean Corpuscular Volume 90.2 fL (80-95); Mean Platelet Volume 9.9 fL (8.0-11.0); Monocytes % 11.2; Neutrophils % 40.7; Platelet Count 315 x1000/uL (130-400); RBC 5.01 m/cumm (4.00-5.20); RBC Distribution Width 12.8 % (11.7-14.6); White Blood Cell Count 4.63 k/cumm (4.4-10.8)
[2019-06-18] MEDS: Normal Saline 1,000 ML 30 ML IV (15:18)
[2019-06-18 15:28] LABS: ALT 28 U/L (14-59); AST 15 U/L (15-37); Albumin 4.5 g/dL (3.4-5.0); Alkaline Phosphatase 140 U/L (46-116); Anion Gap 10.9 mmol/L (3-11); BUN 10 mg/dL (7-18); Bilirubin, Total 0.4 mg/dL (0.2-1.0); CO2 29.1 mmol/L (21.0-32.0); CREATININE 0.76 mg/dL (0.55-1.02); Calcium 9.6 mg/dL (8.5-10.1); Chloride 106 mmol/L (98-107); Glucose 110 mg/dL (74-106); Magnesium 2.3 mg/dL (1.8-2.4); Potassium 3.6 mmol/L (3.5-5.1); Sodium 146 mmol/L (136-145); Total Protein 7.7 g/dL (6.4-8.2); Troponin I < 0.05 ng/Ml (<0.06)
--- NOTE | 2019-06-18 15:43 | DI.RAD_ITS ---
EXAM: XR CHEST 2V PA LATERAL XR CHEST 2V PA LATERAL CLINICAL HISTORY: chest pain. chest pain. TECHNIQUE: 2D digital imaging was performed. COMPARISON: [facility] from 03/23/2013 FINDINGS: The heart is not enlarged. The lungs are clear and well expanded. No pleural effusion seen. Mediastin al contours appear intact. IMPRESSION: Normal chest
--- NOTE | 2019-06-18 15:58 | DI.VRAD_ITS ---
PROCEDURE INFORMATION: Exam: XR Chest, 2 Views Exam date and time: 06/18/2019 3:46 PM Age: 59 years old Clinical indication: Other: Chest pain TECHNIQUE: Imaging protocol: XR of the chest Views: 2 views. COMPARISON: No relevant prior studies available. FINDINGS: Lungs: Unremarkable. No consolidation. Pleural space: Unremarkable. No pleural effusion. No pneumothorax. Heart/Mediastinum: Unremarkable. No cardiomegaly. Bones/joints: Unremarkable. IMPRESSION: No acute findings. Dictated and Authenticated by: Baldomero Rodríguez MD. Ordering:DANIELLE Greenberg MD
[2019-06-18 18:20] LABS: Troponin I < 0.05 ng/Ml (<0.06)
--- NOTE | 2019-06-18 19:15 | NUR.NOTE ---
Report from [facility]. Pt reports chest pain that woke her from sleep last night and has become more constant. Descibes as heavy/pressure. Radiaited to left arm earlier today. Reports pain makes her feel mildly SOB, nauseated. Plan for admission.
--- NOTE | 2019-06-18 19:31 | NUR.NOTE ---
Per MD Carlson pt to be DC home. pt agreeable to plan. Friend called for ride home. LAC IV DC'd. Discharge instructions reviewed with verbal understanding. aware to f/u with pcp. ambulated to exit with steady gait.
== END 2019-06-18 19:30 | disposition home or self-care (01) ==
PROVIDERS: Emergency Medicine; Emergency Provider Student in an Organized Health Care Education/Training Program; PCP Nurse Practitioner Family
DX: R07.82 Intercostal pain (principal); Z63.79 Other stressful life events affecting family and household; E11.42 Type 2 diabetes mellitus with diabetic polyneuropathy; Z79.84 Long term (current) use of oral hypoglycemic drugs
CPT/HCPCS: 36415; 36416; 80053; 82962; 93005; 99285; 71046; 83735; 84484; 85025; 93010; 99284

== ENCOUNTER 2019-06-30 01:30 | Outpatient (CLI) | payer MEDICAID, SELFPAY ==
--- NOTE | 2019-06-30 13:45 | DI.MAMMO_ITS ---
EXAM: MG MAMMO SCREEN CALL BACK UNI AND US BREAST RT LIMITED CLINICAL HISTORY: F/U MAMMO, FOCAL ASYMMETRIC DENSITY UPPER CENTRAL RIGHT BREAST TECHNIQUE: Ultrasound performed using standard protocol. COMPARISON: MAMMOGRAM 06/15/19 FINDINGS: Additional mammographic views of the right breast and right breast ultrasound are interpreted in conj unction. Spot compression views were obtained to evaluate questionable area of asymmetric density of the right breast in approximately the 12 o'clock position. Compression views fail to show a discret e mass. Breast ultrasound shows no evidence of a mass in this area. A 4 millimeter well-circumscrib ed homogeneous avascular mass, probably representing a proteinaceous cyst, is noted in the retroareol ar medial portion of the breast corresponding to a well-circumscribed stable nodule on mammogram. IMPRESSION: No specific evidence of malignancy at this time. Follow-up unilateral right breast mammogram requeste d in 6 months. Category 3, breast density category B. BI-RADS Cat 3 - 6 month - Probably Benign Finding: Recommend follow-up mammography in 6 months Breast Density - Category B - Scattered areas of fibroglandular density
== END 2019-06-30 01:50 ==
PROVIDERS: PCP Nurse Practitioner Family; Visit Provider Nurse Practitioner Family
DX: Z12.31 Encounter for screening mammogram for malignant neoplasm of breast (principal); R92.8 Other abnormal and inconclusive findings on diagnostic imaging of breast; N60.01 Solitary cyst of right breast
CPT/HCPCS: 76642; 77063; 77067

== ENCOUNTER 2019-06-30 14:30 | Emergency (ER) | payer MEDICAID, SELFPAY ==
[2019-06-30 14:32] VITALS: BP 146/77; PULSE 85; RESP 16; TEMP 36.9; O2SAT 96
--- NOTE | 2019-06-30 14:44 | ED.GENADUL_ITS ---
Discharge Plan Disposition Patient Disposition: HOME Condition: Good Discharge Details Chief Complaint: GenMedical Clinical Impression: GERD (gastroesophageal reflux disease), IBS (irritable bowel syndrome) Primary Care Provider: Everett Ramirez ED Provider: Petty Mathur Home Meds and New Rx's Prescriptions: Continued hydroxyzine pamoate 25 mg capsule 25 mg PO QID PRN (Reason: itching) Qty: 30 RF: 3 aluminum hydrox-magnesium carb 160-105 mg tablet,chewable 2 tab PO BID RF: 0 Aimovig Autoinjector 70 mg/mL auto-injector 70 mg SC QMONTH Qty: 1 RF: 2 gabapentin 800 MG tablet 800 mg PO TID RF: 0 diphenoxylate-atropine [Lomotil] 1 EACH tablet 1 - 2 ea PO Q 6 HR PRN RF: 0 docusate sodium [Colace] 100 MG capsule 100 mg PO BID RF: 0 SAD LIGHT DAILY RF: 0 dicyclomine 10 MG capsule 10 mg PO QID RF: 0 glyburide 5 mg tablet 5 mg PO DAILY RF: 0 lidocaine 5 % ointment 1 applic TP BID-QID PRNRF: 0 sertraline 100 mg tablet 100 mg PO DAILY RF: 0 valacyclovir [Valtrex] 500 mg tablet 500 mg PO Q12H RF: 0 polyethylene glycol 3350 [Miralax] 17 gram/dose powder 17 gm PO DAILY RF: 0 sertraline 50 mg tablet 50 mg PO DAILY RF: 0 Advair HFA 230-21 mcg/actuation HFA aerosol inhaler 2 puff IH BID RF: 0 eletriptan 20 mg tablet See Rx Instructions PO .COMPLEX Qty: 14 RF: 5 loperamide [Anti-Diarrhea] 2 MG tablet 2 mg PO PRN PRNRF: 0 fluticasone propion-salmeterol [Advair Diskus] 1 EACH blister with device 1 ea Inhalation BID RF: 0 lorazepam [Ativan] 1 MG tablet 1 mg PO TID PRN PRNRF: 0 levalbuterol tartrate [Xopenex HFA] 15 GM HFA aerosol inhaler 15 gm Inhalation Q6H PRN PRNRF: 0 nystatin (bulk) 1 EACH powder 1 ea Miscellaneous TID PRN PRNRF: 0 calcium carbonate-vitamin D3 [Calcium 500 + D] 1 EACH tablet 1 tab PO DAILY RF: 0 montelukast [Singulair] 10 MG tablet 10 mg PO HS RF: 0 meclizine [Antivert] 25 MG tablet 25 mg PO Q6H PRNQty: 30 RF: 0 fexofenadine 180 mg Tablet 1 mg PO DAILY RF: 0 simvastatin 20 mg Tablet 20 mg PO QHS RF: 0 Discharge Instructions Instructions: Irritable Bowel Syndrome (ED) Additional Instructions: Encourage water intake. Please refer to Dr. Giron's postoperative instructions regarding diet and advancing activities in the postoperative period. Please keep your upcoming appointment with Dr. Kingsley on Thursday. If you develop fever/chills, chest pain, shortness of breath, increased di scomfort, inability to eat or drink or the new/worsening symptom please seek care urgently once again. Referrals: Bora Giron DO [OSTEOPATHIC DOCTOR] - Discharge Data Discharge Date/Time-TO BE ENTERED AT DEPARTURE: 06/30/19 15:46 Medical Decision Making Patient is 59-year-old female with history of psychogenic tremor, peripheral neuropathy, RLS, developmental delay, tardive dyskinesia, MARK, fibromyalgia, IBS, anxiety, hyperlipidemia, asthma, PTSD, depression, GERD, nausea, presenting today with chief complaint of sore throat and abdominal discomfort. Patient reports that she has had this sore throat and pain with swallowing for the past several months. She did undergo an upper endoscopy yesterday with Dr. Giron at [facility]. No change in her symptoms since that time. She reports that she has had IBS for years and that she chronically has associated abdominal discomfort. No change in her abdominal pain recently. No nausea vomiting. No change in appetite. No weight loss. Reports that she has had oatmeal with raisins for breakfast, chicken soup for lunch. No difficulty with this. Consulted with Dr. Giron. I discussed the patient has a reassuring exam at this time, no change in appetite, eating/drinking, no change in her pain. She is exhibiting no evidence of shortness of breath, she denies feeling short of breath. Vital signs are within normal limits. He advised that this is there is no acute change in her discomfort since her procedure yesterday, no further imag ing or evaluation necessary at this time. Patient has plan to see Dr. Giron on Thursday to discuss her continued GERD and IBS symptoms. I discussed this plan with the patient. She feels ready for discharge, continues to be comfortable here with no acute change in her pain. She was given return precautions. All of her questions and concerns were addressed, she is in agreement with this plan. HPI General Mode of arrival: ambulatory . Date/Time Provider Initiated Documentation: 06/30/19 14:43 . Limitations to Documentation: no limitations . Information obtained by: patient and RN notes reviewed . History of Present Illness 59 year old F presents to the emergency department with the chief complaint of sore throat, IBS, described as severe and similar to prior episodes, with intensity rated at 9. Quality is described as burning (sore throat), Patient reports no radiation. Patient started experiencing this month(s) and it has been constant. No relieving factors improve symptom(s), No exacerbating factors reported . Patient notes no other symptoms.; denies chest pain, cough, fever/chills, loss of appetite, nausea/vomiting, rash and shortness of breath. Patient did receive the following treatments prior to arrival, other (EGD yesterday) Related Data Home Medications Medication Instructions Recorded Confirmed fluticasone propion-salmeterol 1 ea INHALATION BID 10/29/12 06/30/19 [Advair Diskus] levalbuterol tartrate [Xopenex HFA] 15 gm INHALATION Q6H PRN PRN 10/29/12 06/30/19 loperamide [Anti-Diarrhea] 2 mg PO PRN PRN 10/29/12 06/30/19 lorazepam [Ativan] 1 mg PO TID PRN PRN 10/29/12 06/30/19 nystatin (bulk) 1 ea MISCELLANEOUS TID PRN PRN 10/29/12 06/30/19 calcium carbonate-vitamin D3 1 tab PO DAILY 11/03/13 06/30/19 [Calcium 500 + D] montelukast [Singulair] 10 mg PO HS 09/22/14 06/30/19 gabapentin 800 mg PO TID tab-cap 06/20/15 06/30/19 meclizine [Antivert] 25 mg PO Q6H PRN #30 tab 02/09/16 06/30/19 Sad Light DAILY 04/09/17 05/09/19 diphenoxylate-atropine [Lomotil] 1 - 2 ea PO Q 6 HR PRN tab-cap 04/09/17 06/30/19 docusate sodium [Colace] 100 mg PO BID tab-cap 04/09/17 06/30/19 dicyclomine 10 mg PO QID tab-cap 04/30/17 06/30/19 hydroxyzine pamoate 25 mg capsule 25 mg PO QID PRN #30 cap 02/08/18 06/30/19 fluticasone propionate 230 2 puff IH BID 09/07/18 06/30/19 mcg-salmeterol 21 mcg/actuation HFA inhaler glyburide 5 mg tablet 5 mg PO DAILY 09/07/18 06/30/19 lidocaine 5 % topical ointment 1 applic TP BID-QID PRN 09/07/18 06/30/19 polyethylene glycol 3350 17 17 gm PO DAILY 09/07/18 06/30/19 gram/dose oral powder sertraline 100 mg tablet 100 mg PO DAILY 09/07/18 06/30/19 sertraline 50 mg tablet 50 mg PO DAILY 09/07/18 06/30/19 valacyclovir 500 mg tablet 500 mg PO Q12H 09/07/18 06/30/19 eletriptan 20 mg tablet See Rx Instructions PO .COMPLEX 10/22/18 06/30/19 #14 tab aluminum hydrox-magnesium carb 160 2 tab PO BID 05/09/19 06/30/19 mg-105 mg chewable tablet erenumab-aooe 70 mg/mL 70 mg SC QMONTH #1 each 05/09/19 06/30/19 subcutaneous auto-injector fexofenadine 1 mg PO DAILY 06/18/19 06/30/19 simvastatin 20 mg PO QHS 06/18/19 06/30/19 Previous Rx's Medication Instructions Recorded meclizine [Antivert] 25 mg PO Q6H PRN #30 tab 02/09/16 hydroxyzine pamoate 25 mg capsule 25 mg PO QID PRN #30 cap 02/08/18 eletriptan 20 mg tablet See Rx Instructions PO .COMPLEX 10/22/18 #14 tab erenumab-aooe 70 mg/mL 70 mg SC QMONTH #1 each 05/09/19 subcutaneous auto-injector Allergies Allergy/AdvReac Type Severity Reaction Status Date / Time peanut Allergy Severe feels Unverified 06/30/19 14:38 like I am going to choke sertraline [From Zoloft] Allergy Severe Verified 06/30/19 14:38 clonazepam Allergy Intermediate I CAN'T Unverified 06/30/19 14:38 BREATHE TOO GOOD Sulfa (Sulfonamide Allergy Intermediate I CAN'T Unverified 06/30/19 14:38 Antibiotics) BREATHE GOOD, IT PATTERSON ME amoxicillin Allergy Unknown Unverified 06/30/19 14:38 ciprofloxacin [From Cipro] Allergy Unknown Unverified 06/30/19 14:38 ciprofloxacin HCl Allergy Unknown Unverified 06/30/19 14:38 [From Cipro] doxycycline Allergy Unknown Unverified 06/30/19 14:38 sulfamethoxazole Allergy Unknown unknown Unverified 06/30/19 14:38 [From Bactrim] trimethoprim [From Bactrim] Allergy Unknown unknown Unverified 06/30/19 14:38 paroxetine HCl [From Paxil] AdvReac Severe chest pain Unverified 06/30/19 14:38 Penicillins AdvReac Severe Unverified 06/30/19 14:38 aspirin AdvReac Intermediate IT PATTERSON Unverified 06/30/19 14:38 MY STOMACH duloxetine HCl AdvReac Intermediate suicidal Unverified 06/30/19 14:38 [From Cymbalta] ideation fluoxetine HCl [From Prozac] AdvReac Intermediate Skin Rash Unverified 06/30/19 14:38 latex AdvReac Intermediate Skin Rash Unverified 06/30/19 14:38 pregabalin [From Lyrica] AdvReac Unknown unknown Unverified 06/30/19 14:38 risperidone [From Risperdal] AdvReac Unknown unknown Unverified 06/30/19 14:38 venlafaxine HCl AdvReac Unknown unknown Unverified 06/30/19 14:38 [From Effexor] TRAZADONE Allergy Unknown Uncoded 06/30/19 14:38 General Stated Complaint: GenMedical DAVID: 3 Review of Systems Constitutional Constitutional: Reports as per HPI, Denies chills, Denies fatigue, Denies fever(s) and Denies headache(s) ENT Ears, Nose, Mouth, and Throat: Denies headache(s) Cardiovascular Cardiovascular: Reports as per HPI, Denies chest pain and Denies dyspnea Respiratory Respiratory: Reports as per HPI, Denies cough and Denies dyspnea Gastrointestinal Gastrointestinal: Reports as per HPI Musculoskeletal Musculoskeletal: Reports as per HPI and Denies back pain Integumentary/Breasts Skin/Breast: Reports as per HPI and Denies rash Neurologic Neurologic: Reports as per HPI and Denies headache(s) Endocrine Endocrine: Denies fatigue [facility] Social History Smoking/Tobacco Use Status: Former Tobacco Use Alcohol Intake: never Drug use: Never Substance use type: does not use Household members: significant other Do you feel safe at home: Yes Do you feel safe in your relationship?: Yes Additional Social history: She lives with her boyfriend and has 2 adult daughters. She is disabled from her chronic back pain and mood disorder. She does not use tobacco products, drink alcohol, or use illicit drugs Exam Const General: cooperative, healthy appearing, comfortable, no acute distress and well developed Nutritional Appearance: average body habitus and well nourished Orientation: alert and awake HENRI Head: normal to inspection Mouth: oral mucosae normal, lip normal, tongue normal and moist mucous membranes Teeth and gingiva: dentition normal Throat: posterior oropharynx normal, tonsils normal and uvula midline Neck Neck: normal visual inspection, full ROM, no lymphadenopathy, no meningeal signs, supple, no anterior neck swelling, no midline deformity and nontender Thyroid: thyroid normal Resp Effort & Inspection: normal respiratory effort, able to speak in complete sentences and no respiratory distress Auscultation: clear to auscultation bilaterally, no rales, no rhonchi and no wheezes Cardio Rate: regular rate Rhythm: regular rhythm Heart Sounds: S1 normal and S2 normal GI Inspection: normal to inspection Palpation: soft, no hepatosplenomegaly, not firm, no guarding, rigid and nontender Back/Spine/Pelvis Back: no CVA tenderness Skin General skin exam: no rashes or lesions noted Trauma: no lacerations or abrasions Neuro General: alert and awake Cognition: normal cognition Speech: speech normal Gait: normal gait Psych Appearance: grossly normal and well kempt Mental Status: mental status grossly normal Speech and Movement: speech and movement normal Course Vital Signs Vital signs: Vital Signs Temperature 36.9 C 06/30/19 14:32 Pulse 85 06/30/19 14:32 Respiratory Rate 16 06/30/19 14:32 Blood Pressure 146/77 H 06/30/19 14:32 Pulse Oximetry 96 06/30/19 14:32 Temperature 36.9 C 06/30/19 14:32 Temperature Source Skin 06/30/19 14:32 Pulse 85 06/30/19 14:32 Respiratory Rate 16 06/30/19 14:32 Respiratory Effort 06/30/19 14:38 Blood Pressure 146/77 H 06/30/19 14:32 Blood Pressure Position Sitting 06/30/19 14:32 Pulse Oximetry 96 06/30/19 14:32 Oxygen Delivery Method Room Air 06/30/19 14:32 Oxygen Flow Rate 0 06/30/19 14:32 Pain Level 9 06/30/19 14:32 Comment 06/30/19 14:32
[2019-06-30 15:22] VITALS: RESP 16
[2019-06-30 15:42] VITALS: BP 128/74; PULSE 74; RESP 18; TEMP 36.5; O2SAT 97
[2019-06-30 15:44] VITALS: BP 128/74; PULSE 74; RESP 18; TEMP 36.5; O2SAT 97
== END 2019-06-30 15:46 | disposition home or self-care (01) ==
PROVIDERS: Emergency Provider Physician Assistant; PCP Nurse Practitioner Family
DX: K21.9 Gastro-esophageal reflux disease without esophagitis (principal); K58.9 Irritable bowel syndrome, unspecified; R13.10 Dysphagia, unspecified
CPT/HCPCS: 99282; 99283

== ENCOUNTER 2019-09-07 14:24 | Emergency (ER) | payer MEDICAID, SELFPAY ==
[2019-09-07] VITALS (7 sets, daily range): BP systolic 121–128; BP diastolic 56–84; PULSE 78–91; RESP 9–19; TEMP 36.5; O2SAT 93–97
[2019-09-07 14:48] LABS: Absolute Basophil Count 0.01 k/cumm (0.0-0.2); Absolute Eosinophil Count 0.11 k/cumm (0.0-0.7); Absolute Lymphocyte Count 1.59 k/cumm (1.2-3.4); Absolute Monocyte Count 0.39 k/cumm (0.11-0.7); Absolute Neutrophil Count 1.77 k/cumm (1.2-6.7); Basophils % 0.3; Eosinophils % 2.8; HGB 14.3 g/dL (12.0-15.5); Lymphocytes % 41.1; Mean Corpuscular Hemoglobin 31.6 pg (27.0-33.0); Mean Corpuscular Volume 92.9 fL (80-95); Mean Platelet Volume 9.9 fL (8.0-11.0); Monocytes % 10.1; Neutrophils % 45.7; Platelet Count 239 x1000/uL (130-400); RBC 4.52 m/cumm (4.00-5.20); RBC Distribution Width 12.6 % (11.7-14.6); White Blood Cell Count 3.87 k/cumm (4.4-10.8)
[2019-09-07 14:58] LABS: Lipase 101 U/L (73-393)
[2019-09-07 15:05] LABS: ALT 31 U/L (14-59); AST 15 U/L (15-37); Alkaline Phosphatase 110 U/L (46-116); Anion Gap 6.6 mmol/L (3-11); BUN 11 mg/dL (7-18); Bilirubin, Total 0.4 mg/dL (0.2-1.0); CO2 29.4 mmol/L (21.0-32.0); CREATININE 0.74 mg/dL (0.55-1.02); Calcium 9.1 mg/dL (8.5-10.1); Chloride 108 mmol/L (98-107); Glucose 118 mg/dL (74-106); Magnesium 2.3 mg/dL (1.8-2.4); Potassium 3.6 mmol/L (3.5-5.1); Sodium 144 mmol/L (136-145)
[2019-09-07 15:09] LABS: Troponin I < 0.05 ng/Ml (<0.06)
[2019-09-07 15:27] LABS: D-Dimer 249 ng/mlFEU (<500)
[2019-09-07 15:38] LABS: Bilirubin Negative (Negative); Blood Trace-lysed (Negative); Clarity Clear (Clear); Glucose Negative (Negative); Ketones Negative (Negative); Leukocyte Esterase Negative (Negative); Nitrite Negative (Negative); Specific Gravity 1.015 (1.005-1.025); Urobilinogen 0.2 EU/dL (Up TO 0.2)
[2019-09-07 15:49] LABS: Bacteria Negative HPF (Negative); C & S Indicated? No; Casts Negative LPF (Negative); Crystals Negative HPF (Negative); Epithelial Cells Negative HPF (Negative); Mucus Negative (Negative); Other Cells Negative (Negative); RBC 0-2 HPF (0-2); WBC 0-2 HPF (0-5)
[2019-09-07] MEDS: Normal Saline - Diluent 50 ML VIAL IV (15:50)
[2019-09-07] MEDS: Omnipaque 350 MG/ML 100 ML BTL IJ (15:51)
--- NOTE | 2019-09-07 16:00 | DI.CT_ITS ---
EXAM: CT CHEST PE CTA CLINICAL HISTORY: chest pain, back pain, mild SOB TECHNIQUE: COMPARISON: No exams were available for comparison FINDINGS: The angiography of the chest was performed with intravenous infusion of 100 cc of Omnipaque 350. Katie ges obtained through the upper abdomen show unremarkable appearance of visualized portions of liver, pancreas, spleen, left kidney, and adrenals. No mediastinal or hilar adenopathy seen. Thoracic aorta is unremarkable with no evidence of aneurysm or dissection. No evidence of pulmonary embolic disease. The lungs are clear. No consolidation seen. No pleural effusion or pleural-based mass. IMPRESSION: Negative CT angiography of the chest. No pulmonary embolic disease. No pulmonary consolidation.
--- NOTE | 2019-09-07 16:12 | ED.GENADUL_ITS ---
Discharge Plan Disposition Patient Disposition: HOME Condition: Good Discharge Details Chief Complaint: Chest Pain Clinical Impression: Atypical chest pain, Back pain, Leukopenia Primary Care Provider: Everett Ramirez ED Provider: Petty Mathur Home Meds and New Rx's Prescriptions: New sucralfate [Carafate] 1 gram tablet 1 gm PO QACHS Qty: 60 RF: 0 Continued hydroxyzine pamoate 25 mg capsule 25 mg PO QID PRN (Reason: itching) Qty: 30 RF: 3 Aimovig Autoinjector 140 mg/mL auto-injector 140 mg SC QMONTH Qty: 1 RF: 4 gabapentin 800 MG tablet 800 mg PO TID RF: 0 diphenoxylate-atropine [Lomotil] 1 EACH tablet 1 - 2 ea PO Q 6 HR PRN RF: 0 docusate sodium [Colace] 100 MG capsule 100 mg PO BID RF: 0 SAD LIGHT DAILY RF: 0 glyburide 5 mg tablet 5 mg PO DAILY RF: 0 lidocaine 5 % ointment 1 applic TP BID-QID PRNRF: 0 sertraline 100 mg tablet 100 mg PO DAILY RF: 0 valacyclovir [Valtrex] 500 mg tablet 500 mg PO Q12H RF: 0 sertraline 50 mg tablet 50 mg PO DAILY RF: 0 Advair HFA 230-21 mcg/actuation HFA aerosol inhaler 2 puff IH BID RF: 0 eletriptan 20 mg tablet See Rx Instructions PO .COMPLEX Qty: 14 RF: 5 loperamide [Anti-Diarrhea] 2 MG tablet 2 mg PO PRN PRNRF: 0 fluticasone propion-salmeterol [Advair Diskus] 1 EACH blister with device 1 ea Inhalation BID RF: 0 lorazepam [Ativan] 1 MG tablet 1 mg PO TID PRN PRNRF: 0 levalbuterol tartrate [Xopenex HFA] 15 GM HFA aerosol inhaler 15 gm Inhalation Q6H PRN PRNRF: 0 nystatin (bulk) 1 EACH powder 1 ea Miscellaneous TID PRN PRNRF: 0 calcium carbonate-vitamin D3 [Calcium 500 + D] 1 EACH tablet 1 tab PO DAILY RF: 0 montelukast [Singulair] 10 MG tablet 10 mg PO HS RF: 0 meclizine [Antivert] 25 MG tablet 25 mg PO Q6H PRNQty: 30 RF: 0 fexofenadine 180 mg Tablet 1 mg PO DAILY RF: 0 simvastatin 20 mg Tablet 20 mg PO QHS RF: 0 Discharge Instructions Instructions: Chest Pain (ED), Gastroesophageal Reflux Disease (ED), Back Pain (ED) Additional Instructions: Encourage water intake. Please take the Carafate as prescribed. You did have good results with medication here and hopefully this will continue to decrease her symptoms. Please contact your primary care tomorrow to schedule follow-up in the next week for reevaluation. If you develop any new or worsening symptoms please seek care urgently once again. Referrals: Everett Ramirez NP [Primary Care Provider] - Medical Decision Making <MATT Kruse - Last Filed: 09/07/19 16:40> This is a 59-year-old patient complaining of chest pain for at least 1 month with radiation toward her back between her shoulder blades. Patient reports pain has been constant. Patient denies any injury or trauma. Patient reports chest pain is described as substernal. Patient denies radiation into the neck or extremities. Patient reports pain waxes between a 7 and a 9 out of 10, describes it as a 9 out of 10 at this time however patient appears comfortable in bed is speaking without any difficulty or obvious shortness of breath. Patient has vague complaints when asked about shortness of breath but is in no clear distress at this time. Patient denies any obvious nausea or vomiting. Patient denies any fever but reports mild chills. Patient requires some redirecting when asking questions and has multiple complaints. Patient reports mild complaints of abdominal pain in the epigastric and suprapubic areas. Patient denies any lower leg swelling. Patient reports she has recently been treated for urinary tract infection, patient presents with a bill bottle of cefuroxime 200 mg x 5 days which she recently completed. Patient denies any dysuria at this time. Patient reports she was seen for similar complaints of chest pain in June with no acute findings and was ultimately discharged home. We will plan to check imaging of patient's chest and precede this with d-dimer as well as troponin and EKG. Patient's initial EKG reveals a heart rate of 88, sinus rhythm with no ST segment changes, QTC noted to be 474, NH interval 128. This was reviewed with Dr. Inder Schmid. Patient's initial labs reveal mild leukopenia, no associated electrolyte abnormalities, LFT abnormalities or elevation of her lipase. Initial opponent is normal I do not feel a subsequent or delta troponin is necessary given patient's complaints have been constant. Patient's d-dimer is normal. Patient's urinalysis reveals no nitrites, no leukocyte esterase, no white blood cells or bacteria, nothing to indicate infection at this time. Despite normal d-dimer given patient's complaints of pain with radiation toward her back will check CTA of her chest to be sure there is no evidence of acute infectious or vascular concern. Patient signed out pending CT imaging, recommended consider GI cocktail if this is of reflux or GI etiology given patient's mild complaints of epigastric discomfort in addition to her chest and back pain. <MATT Valenzuela - Last Filed: 09/07/19 17:11> Care transition myself from Alessandra Bedoya PA-C with CT imaging pending. Please see her initial note regarding presentation evaluation and labs completed thus far. CT was reviewed by radiologist: FINDINGS: Pulmonary arteries: Normal. No pulmonary emboli. Aorta: Unremarkable. No aortic aneurysm. No aortic dissection. Lungs:. Deep inspiratory effort. No consolidation. No masses. Slight elevation of the left hemidiaphragm Pleural space: Unremarkable. No pneumothorax. No pleural effusion. Heart: Unremarkable. No cardiomegaly. No pericardial effusion. Lymph nodes: Unremarkable. No enlarged lymph nodes. Bones/joints: Mild spondylosis of the thoracic spine. Soft tissues: Unremarkable. IMPRESSION: 1. No evidence of pulmonary emboli or dissection of the thoracic aorta 2. Minimal scarring the lungs with no evidence of acute pneumonia or pulmonary edema I discussed these findings with the patient. She continues to have discomfort. Alessandra Bedoya had discussed with her the use of a GI cocktail in the event that her CT was normal. This was given to the patient and she had great improvement with this. She does have a history of GERD and is on a multitude of medicatio ns. Plan to begin the patient on Carafate. Encourage close follow-up with primary care. Patient does have chronic back pain which may be exacerbated as well, no acute abnormalities noted on the CT. She will contact her primary care tomorrow to schedule follow-up appointment. She was given return precautions. All of her questions and concerns were addressed and she is in agreement this plan. I did advise home remedies and [id number] medications patient reports that she has tried these hopefully the Carafate will work well for her. HPI <MATT Kruse - Last Filed: 09/07/19 16:40> General Date/Time Provider Initiated Documentation: 09/07/19 14:25 . HPI Narrative: This is a 59-year-old patient complaining of approximately 1 month of chest and back pain. Patient reports substernal chest pain which she reports is a 9 out of 10 at this time. Patient reports 1 month of pain which seemingly is unchanged. Patient reports pain waxes between a 7 to a 9 out of 10. Patient appears in no apparent distress at this time moving without difficulty in the bed. Patient complaining of back pain. Patient does report similar complaints in June with no acute findings. Patient does report she was recently treated for urinary tract infection with cefuroxime x5 days. Patient denies any persistent urinary concerns. Patient does report vague abdominal complaints specifically in the suprapubic and epigastric area. Patient denies any obvious bowel changes. Patient reports urinating without difficulty. Patient reports back pain is noted between the shoulder blades as well as in the lumbar aspect of her spine, lumbar pain has been present for greater than 1 month. Patient denies any radiating symptoms into the arms or the legs. Patient denies any specific headache or dizziness. Patient reports in general mild malaise. Olive oliverafernando reports she does feel mildly short of breath but is speaking with no obvious difficulty or increase in respiratory effort. Patient denies any injury or trauma to the chest. Patient has been seen for her complaints of chest pain with no apparent findings. Related Data Home Medications Medication Instructions Recorded Confirmed fluticasone propion-salmeterol 1 ea INHALATION BID 10/29/12 09/07/19 [Advair Diskus] levalbuterol tartrate [Xopenex HFA] 15 gm INHALATION Q6H PRN PRN 10/29/12 09/07/19 loperamide [Anti-Diarrhea] 2 mg PO PRN PRN 10/29/12 09/07/19 lorazepam [Ativan] 1 mg PO TID PRN PRN 10/29/12 09/07/19 nystatin (bulk) 1 ea MISCELLANEOUS TID PRN PRN 10/29/12 09/07/19 calcium carbonate-vitamin D3 1 tab PO DAILY 11/03/13 09/07/19 [Calcium 500 + D] montelukast [Singulair] 10 mg PO HS 09/22/14 09/07/19 gabapentin 800 mg PO TID tab-cap 06/20/15 09/07/19 meclizine [Antivert] 25 mg PO Q6H PRN #30 tab 02/09/16 09/07/19 Sad Light DAILY 04/09/17 08/25/19 diphenoxylate-atropine [Lomotil] 1 - 2 ea PO Q 6 HR PRN tab-cap 04/09/17 09/07/19 docusate sodium [Colace] 100 mg PO BID tab-cap 04/09/17 09/07/19 hydroxyzine pamoate 25 mg capsule 25 mg PO QID PRN #30 cap 02/08/18 09/07/19 fluticasone propionate 230 2 puff IH BID 09/07/18 09/07/19 mcg-salmeterol 21 mcg/actuation HFA inhaler glyburide 5 mg tablet 5 mg PO DAILY 09/07/18 09/07/19 lidocaine 5 % topical ointment 1 applic TP BID-QID PRN 09/07/18 09/07/19 sertraline 100 mg tablet 100 mg PO DAILY 09/07/18 09/07/19 sertraline 50 mg tablet 50 mg PO DAILY 09/07/18 09/07/19 valacyclovir 500 mg tablet 500 mg PO Q12H 09/07/18 09/07/19 eletriptan 20 mg tablet See Rx Instructions PO .COMPLEX 10/22/18 09/07/19 #14 tab fexofenadine 1 mg PO DAILY 06/18/19 09/07/19 simvastatin 20 mg PO QHS 06/18/19 09/07/19 erenumab-aooe 140 mg/mL 140 mg SC QMONTH #1 ml 08/25/19 09/07/19 subcutaneous auto-injector sucralfate [Carafate] 1 gm PO QACHS #60 tab 09/07/19 Previous Rx's Medication Instructions Recorded meclizine [Antivert] 25 mg PO Q6H PRN #30 tab 02/09/16 hydroxyzine pamoate 25 mg capsule 25 mg PO QID PRN #30 cap 02/08/18 eletriptan 20 mg tablet See Rx Instructions PO .COMPLEX 10/22/18 #14 tab erenumab-aooe 140 mg/mL 140 mg SC QMONTH #1 ml 08/25/19 subcutaneous auto-injector sucralfate [Carafate] 1 gm PO QACHS #60 tab 09/07/19 Allergies Allergy/AdvReac Type Severity Reaction Status Date / Time peanut Allergy Severe feels Unverified 06/30/19 14:38 like I am going to choke sertraline [From Zoloft] Allergy Severe Verified 06/30/19 14:38 clonazepam Allergy Intermediate I CAN'T Unverified 06/30/19 14:38 BREATHE TOO GOOD Sulfa (Sulfonamide Allergy Intermediate I CAN'T Unverified 06/30/19 14:38 Antibiotics) BREATHE GOOD, IT PATTERSON ME amoxicillin Allergy Unknown Unverified 06/30/19 14:38 ciprofloxacin [From Cipro] Allergy Unknown Unverified 06/30/19 14:38 ciprofloxacin HCl Allergy Unknown Unverified 06/30/19 14:38 [From Cipro] doxycycline Allergy Unknown Unverified 06/30/19 14:38 sulfamethoxazole Allergy Unknown unknown Unverified 06/30/19 14:38 [From Bactrim] trimethoprim [From Bactrim] Allergy Unknown unknown Unverified 06/30/19 14:38 paroxetine HCl [From Paxil] AdvReac Severe chest pain Unverified 06/30/19 14:38 Penicillins AdvReac Severe Unverified 06/30/19 14:38 aspirin AdvReac Intermediate IT PATTERSON Unverified 06/30/19 14:38 MY STOMACH duloxetine HCl AdvReac Intermediate suicidal Unverified 06/30/19 14:38 [From Cymbalta] ideation fluoxetine HCl [From Prozac] AdvReac Intermediate Skin Rash Unverified 06/30/19 14:38 latex AdvReac Intermediate Skin Rash Unverified 06/30/19 14:38 pregabalin [From Lyrica] AdvReac Unknown unknown Unverified 06/30/19 14:38 risperidone [From Risperdal] AdvReac Unknown unknown Unverified 06/30/19 14:38 venlafaxine HCl AdvReac Unknown unknown Unverified 06/30/19 14:38 [From Effexor] TRAZADONE Allergy Unknown Uncoded 06/30/19 14:38 General Stated Complaint: Chest Pain DAVID: 3 Review of Systems <MATT Kruse - Last Filed: 09/07/19 16:40> All systems reviewed & are unremarkable except as noted in HPI and below Constitutional Constitutional: Reports chills, Denies fever(s) and Denies headache(s) ENT Ears, Nose, Mouth, and Throat: Denies headache(s), Denies sinus pain, Denies sinus pressure and Denies sore throat Cardiovascular Cardiovascular: Reports chest pain, Denies diaphoresis, Denies syncope and Reports dyspnea (Mild, denies obvious exertional component) Respiratory Respiratory: Denies cough, Reports dyspnea (Mild, denies obvious exertional component) and Denies wheezing Gastrointestinal Gastrointestinal: Reports abdominal pain (Suprapubic as well as mild epigastric.), Denies constipation, Denies diarrhea, Denies nausea and Denies vomiting Neurologic Neurologic: Denies syncope and Denies headache(s) Allergic/Immunologic Allergic/Immunologic: Denies wheezing PFSH <MATT Kruse - Last Filed: 09/07/19 16:40> Medical History Abdominal pain (Acute) Adjustment disorder with depressed mood (Acute) Allergic rhinitis (Acute) Anxiety (Chronic) Asthma (Chronic) Back pain (Acute) Phillips angioma (Acute) Chronic daily headache (Chronic 01/11/18) Chronic fatigue (Chronic) Chronic low back pain (Chronic) Daytime somnolence (Acute) Depression (Chronic) Developmental delay, mild (Chronic) Diabetes mellitus type 2 in obese (Acute) Diabetic peripheral neuropathy associated with type 2 diabetes mellitus (Chronic) Essential tremor (Chronic) Facial skin lesion (Acute) Fibromyalgia (Chronic) Genital herpes (Acute) GERD (gastroesophageal reflux disease) (Chronic) Head injury (Acute) History of concussion (Chronic) History of tobacco use (Chronic) Hyperlipidemia (Chronic) IBS (irritable bowel syndrome) (Chronic) Intractable migraine with aura without status migrainosus (Chronic 01/11/18) Joint pain in fingers of left hand (Acute) Joint pain in fingers of right hand (Acute) Memory deficit (Acute) Migraine (Chronic) Nausea (Chronic 01/11/18) Obesity (Chronic) Obstructive sleep apnea on CPAP (Chronic) 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) Panic disorder (Acute) Parkinsons disease (Chronic) Plantar fasciitis (Acute) Prediabetes (Chronic) PTSD (post-traumatic stress disorder) (Chronic) Restless leg syndrome (Chronic) Rosacea (Acute) Seasonal allergies (Acute) Tardive dyskinesia (Chronic) Social History Smoking/Tobacco Use Status: Former Tobacco Use Tobacco: How many years used: 1 Alcohol Intake: never Drug use: Never Substance use type: does not use Household members: significant other Do you feel safe at home: Yes Do you feel safe in your relationship?: Yes Additional Social history: She lives with her boyfriend and has 2 adult daughters. She is disabled from her chronic back pain and mood disorder. She does not use tobacco products, drink alcohol, or use illicit drugs Exam <MATT Kruse - Last Filed: 09/07/19 16:40> Narrative Exam Narrative: CONST: Healthy appearing patient, in no acute distress. Well hydrated. Alert and oriented. HENMT: Head nomocephalic, normal to inspection. Atraumatic. Hearing grossly normal. External ear canal no erythema or swelling. TM normal bilaterally. Nose normal to inspection. No rhinnorhea. Normal facial exam. Oral mucosa normal. Tounge normal. Dentition normal. Normal posterior oropharynx. Uvula midline. EYES: General normal appearance. Alignment normal. Eyelids normal. Conjunctiva normal. Sclera normal. PERRL. NECK: Normal visual inspection. FROM. No lymphadenopathy. Trachea midline. No Midline tenderness. CHEST: Normal insepection of the chest. RESP: Normal respiratory effort. Speaking full sentences. No cough. No wheezing. No retractions. Clear to auscaltation. Breath sound equal and present bilaterally. CARDIO: No JVD. Normal PMI. Regular Rate. Regular Rhythm. Normal peripheral pulses. GI: Normal inspection of abdomen. No distension. Soft. Mild epigastric discomfort.. Bowel sounds present in all 4 quadrants. No rebound. No gaurding. No peritoneal signs Back: No wincing with CVA palpation, vague complaints of tenderness MUSCULOSKELETAL: Normal Gait. FROM of all extremities. Distal neurovascularly intact. Sensation intact distally. No lower extremity edema noted SKIN: Normal. Dry. No rashes. NEURO: Alert and awake. Speech clear. PSYCH: Normal affect. Cooperative. Course <MATT Kruse - Last Filed: 09/07/19 16:40> Vital Signs Vital signs: Vital Signs Temperature 36.5 C 09/07/19 14:16 Pulse 91 H 09/07/19 14:16 Respiratory Rate 19 09/07/19 14:16 Blood Pressure 128/84 09/07/19 14:16 Pulse Oximetry 97 09/07/19 14:16 Temperature 36.5 C 09/07/19 14:16 Temperature Source Temporal Artery Scan 09/07/19 14:16 Pulse 78 09/07/19 15:38 Pulse 80 09/07/19 15:38 Respiratory Rate 15 09/07/19 15:38 Respiratory Effort 09/07/19 14:26 Respiratory Depth Normal 09/07/19 14:26 Respiratory Pattern Normal 09/07/19 14:26 Blood Pressure 125/78 09/07/19 15:38 Blood Pressure Mean 90 09/07/19 15:38 Blood Pressure Position Supine 09/07/19 14:16 Pulse Oximetry 97 09/07/19 15:38 Oxygen Delivery Method Room Air 09/07/19 14:16 Oxygen Flow Rate 0 09/07/19 14:16 Pain Level 9 09/07/19 14:16 Lab/Test Results Lab/Test Results: Laboratory Tests Range/Units 09/07/19 09/07/19 09/07/19 14:30 14:30 14:30 WBC (4.4-10.8) k/cumm RBC (4.00-5.20) m/cumm Hgb (12.0-15.5) g/dL Hct (36.0-46.0) % MCV (80-95) fL MCH (27.0-33.0) pg MCHC (32.0-36.0) g/dL RDW (11.7-14.6) % Plt Count (130-400) x1000/uL MPV (8.0-11.0) fL Immature Gran % % Neutrophils % Lymphocytes % Monocytes % Eosinophils % Basophils % Absolute Neutrophils (1.2-6.7) k/cumm Absolute Lymphocytes (1.2-3.4) k/cumm Absolute Monocytes (0.11-0.7) k/cumm Absolute Eosinophils (0.0-0.7) k/cumm Absolute Basophils (0.0-0.2) k/cumm D-Dimer (<500) ng/mlFEU 249 Sodium (136-145) mmol/L 144 Potassium (3.5-5.1) mmol/L 3.6 Chloride (98-107) mmol/L 108 H Carbon Dioxide (21.0-32.0) mmol/L 29.4 Anion Gap (3-11) mmol/L 6.6 BUN (7-18) mg/dL 11 Creatinine (0.55-1.02) mg/dL 0.74 Estimated GFR/1.73 m2 (mL/min/1.73m2) >= 60.00 Glucose (74-106) mg/dL 118 H Calcium (8.5-10.1) mg/dL 9.1 Magnesium (1.8-2.4) mg/dL 2.3 Total Bilirubin (0.2-1.0) mg/dL 0.4 AST (15-37) U/L 15 ALT (14-59) U/L 31 Alkaline Phosphatase (46-116) U/L 110 Troponin I (<0.06) ng/Ml < 0.05 Total Protein (6.4-8.2) g/dL 7.0 Albumin (3.4-5.0) g/dL 4.0 Lipase (73-393) U/L 101 Urine Color (Yellow) Urine Clarity (Clear) Urine pH (5-8) Ur Specific [place] (1.005-1.025) Urine Protein (Negative) mg/dL Urine Ketones (Negative) mg/dL Urine Blood (Negative) Urine Nitrite (Negative) Urine Bilirubin (Negative) Urine Urobilinogen (Up TO 0.2) EU/dL Ur Leukocyte Esterase (Negative) Urine RBC (0-2) HPF Urine WBC (0-5) HPF Ur Epithelial Cells (Negative) HPF Urine Crystals (Negative) HPF Urine Bacteria (Negative) HPF Urine Casts (Negative) LPF Urine Mucus (Negative) Urine Other (Negative) Ur Culture Indicated? Urine Glucose (Negative) mg/dL Range/Units 04/08/20 04/08/20 14:30 15:30 WBC (4.4-10.8) k/cumm 3.87 L RBC (4.00-5.20) m/cumm 4.52 Hgb (12.0-15.5) g/dL 14.3 Hct (36.0-46.0) % 42.0 MCV (80-95) fL 92.9 MCH (27.0-33.0) pg 31.6 MCHC (32.0-36.0) g/dL 34.0 RDW (11.7-14.6) % 12.6 Plt Count (130-400) x1000/uL 239 MPV (8.0-11.0) fL 9.9 Immature Gran % % 0.0 Neutrophils % 45.7 Lymphocytes % 41.1 Monocytes % 10.1 Eosinophils % 2.8 Basophils % 0.3 Absolute Neutrophils (1.2-6.7) k/cumm 1.77 Absolute Lymphocytes (1.2-3.4) k/cumm 1.59 Absolute Monocytes (0.11-0.7) k/cumm 0.39 Absolute Eosinophils (0.0-0.7) k/cumm 0.11 Absolute Basophils (0.0-0.2) k/cumm 0.01 D-Dimer (<500) ng/mlFEU Sodium (136-145) mmol/L Potassium (3.5-5.1) mmol/L Chloride (98-107) mmol/L Carbon Dioxide (21.0-32.0) mmol/L Anion Gap (3-11) mmol/L BUN (7-18) mg/dL Creatinine (0.55-1.02) mg/dL Estimated GFR/1.73 m2 (mL/min/1.73m2) Glucose (74-106) mg/dL Calcium (8.5-10.1) mg/dL Magnesium (1.8-2.4) mg/dL Total Bilirubin (0.2-1.0) mg/dL AST (15-37) U/L ALT (14-59) U/L Alkaline Phosphatase (46-116) U/L Troponin I (<0.06) ng/Ml Total Protein (6.4-8.2) g/dL Albumin (3.4-5.0) g/dL Lipase (73-393) U/L Urine Color (Yellow) Yellow Urine Clarity (Clear) Clear Urine pH (5-8) 7.0 Ur Specific [place] (1.005-1.025) 1.015 Urine Protein (Negative) mg/dL Negative Urine Ketones (Negative) mg/dL Negative Urine Blood (Negative) Trace-lysed H Urine Nitrite (Negative) Negative Urine Bilirubin (Negative) Negative Urine Urobilinogen (Up TO 0.2) EU/dL 0.2 Ur Leukocyte Esterase (Negative) Negative Urine RBC (0-2) HPF 0-2 Urine WBC (0-5) HPF 0-2 Ur Epithelial Cells (Negative) HPF Negative Urine Crystals (Negative) HPF Negative Urine Bacteria (Negative) HPF Negative Urine Casts (Negative) LPF Negative Urine Mucus (Negative) Negative Urine Other (Negative) Negative Ur Culture Indicated? No Urine Glucose (Negative) mg/dL Negative Sign Out <MATT Kruse - Last Filed: 09/07/19 16:40> Sign Out Data: Sign Out Comment: Signout pending CTA results for patient complaining of 1 month of chest and back pain, vague complaints otherwise. Stable at time of signout Last updated by Julieth Parker PA at 09/07/19 16:21
--- NOTE | 2019-09-07 16:21 | DI.VRAD_ITS ---
PROCEDURE INFORMATION: Exam: CT Angiography Chest With Contrast Exam date and time: 09/07/2019 3:55 PM Age: 59 years old Clinical indication: Other: Radiating to back. ; Patient HX: Patient states chest pain and back pain x2 days. Mild SOB. Pui patient for covid-19 TECHNIQUE: Imaging protocol: Computed tomographic angiography of the chest with intravenous contrast. 3D rendering: MIP and/or 3D reconstructed images were created by the technologist. Radiation optimization: All CT scans at this facility use at least one of these dose optimization techniques: automated exposure control; mA and/or kV adjustment per patient size (includes targeted exams where dose is matched to clinical indication); or iterative reconstruction. Contrast material: OMNIPAQUE 350; Contrast volume: 65 ml; Contrast route: IV; COMPARISON: CR XR CHEST 2V PA LATERAL 06/18/2019 3:43 PM FINDINGS: Pulmonary arteries: Normal. No pulmonary emboli. Aorta: Unremarkable. No aortic aneurysm. No aortic dissection. Lungs:. Deep inspiratory effort. No consolidation. No masses. Slight elevation of the left hemidiaphragm Pleural space: Unremarkable. No pneumothorax. No pleural effusion. Heart: Unremarkable. No cardiomegaly. No pericardial effusion. Lymph nodes: Unremarkable. No enlarged lymph nodes. Bones/joints: Mild spondylosis of the thoracic spine. Soft tissues: Unremarkable. IMPRESSION: 1. No evidence of pulmonary emboli or dissection of the thoracic aorta 2. Minimal scarring the lungs with no evidence of acute pneumonia or pulmonary edema Dictated and Authenticated by: Reddy Ramirez MD. Ordering:ANATOLY Clancy MD
== END 2019-09-07 17:20 | disposition home or self-care (01) ==
PROVIDERS: Physician Assistant; Emergency Provider Physician Assistant; PCP Nurse Practitioner Family
DX: R07.89 Other chest pain (principal); M54.9 Dorsalgia, unspecified; D72.819 Decreased white blood cell count, unspecified; E11.9 Type 2 diabetes mellitus without complications
CPT/HCPCS: 36415; 71275; 80053; 83690; 93005; 99285; 81003; 81015; 83735; 84484; 85025; 85379; 93010; 99284; J3490

== ENCOUNTER 2019-10-03 13:01 | Outpatient (REF) | payer MEDICAID, SELFPAY ==
[2019-10-03 19:27] LABS: HCT 43.7 % (36.0-46.0); HGB 14.5 g/dL (12.0-15.5); Mean Corp. HGB Concentration 33.2 g/dL (32.0-36.0); Mean Corpuscular Hemoglobin 31.2 pg (27.0-33.0); Mean Platelet Volume 10.5 fL (8.0-11.0); Platelet Count 270 x1000/uL (130-400); RBC 4.65 m/cumm (4.00-5.20); RBC Distribution Width 12.5 % (11.7-14.6); White Blood Cell Count 4.71 k/cumm (4.4-10.8)
[2019-10-03 20:18] LABS: BUN 12 mg/dL (7-18); CREATININE 0.83 mg/dL (0.55-1.02); Calcium 9.9 mg/dL (8.5-10.1); Chloride 104 mmol/L (98-107); Glucose 59 mg/dL (74-106); Magnesium 2.4 mg/dL (1.8-2.4); Potassium 4.2 mmol/L (3.5-5.1); Sodium 143 mmol/L (136-145); Vitamin B12 638 pg/mL (193-986)
[2019-10-03 20:38] LABS: Hemoglobin A1C 5.7 % (3.8-5.6)
== END 2019-10-03 13:21 ==
LOC: NCHCN 13:01
PROVIDERS: PCP Nurse Practitioner Family; Visit Provider Nurse Practitioner Family
DX: R03.0 Elevated blood-pressure reading, without diagnosis of hypertension (principal); R31.9 Hematuria, unspecified; Z79.899 Other long term (current) drug therapy
CPT/HCPCS: 80048; 85027; 82607; 83036; 83735; 87086

== ENCOUNTER 2019-12-29 00:44 | Outpatient (CLI) | payer MEDICAID, SELFPAY ==
--- NOTE | 2019-12-29 13:50 | DI.MAMMO_ITS ---
EXAM: MG MAMMO DIAGNOSTIC UNI CLINICAL HISTORY: DIAGNOSTIC, F/U ABNL MAMMO, 6 MO FOLLOW PU, R92.8. TECHNIQUE: Craniocaudal and mediolateral oblique Full Field Digital Mammography views of the breast with Computer Aided Diagnosis followed by Tomosynthesis. COMPARISON: 15 June 2019 as well as exams from 2010 through 2015. FINDINGS: Mammography/Tomosynthesis: This is a six-month follow-up for questioned asymmetric density in the superior right breast. Masses/Architectural Distortion: None seen. Microcalcifictions: No suspicious pleomorphic-type are seen. Skin Thickening/Nipple Retraction: None. IMPRESSION: 1. No evidence of malignancy is noted. 2. Unless there is more urgent need, follow-up screening mammography is recommended, as per [place] [employer] guidelines. 3. The findings were discussed with the patient on the date of the examination. BI-RADS Category 1 - Negative Breast Density - Category B - Scattered areas of fibroglandular density A negative radiographic report should not delay biopsy if a dominant or clinically suspicious mass is present. Up to ten percent of cancers are not identified on mammography. A negative report may reinforce clinical impression. Adenosis and dense breasts may obscure an underlying neoplasm. False positive reports average 6 to 10%. Patient will receive a letter notifying them of these results.
== END 2019-12-29 01:04 ==
PROVIDERS: PCP Nurse Practitioner Family; Visit Provider Nurse Practitioner Family
DX: Z12.31 Encounter for screening mammogram for malignant neoplasm of breast (principal); R92.8 Other abnormal and inconclusive findings on diagnostic imaging of breast
CPT/HCPCS: 77061; 77065; G0279

== ENCOUNTER 2020-01-05 10:42 | Outpatient (REF) | payer MEDICAID, SELFPAY ==
[2020-01-05 14:47] LABS: COMMENT (LAB VIEW ONLY) 90.89 mg/dL; PROTEIN 9.3 mg/dL
[2020-01-05 14:52] LABS: COMMENT (LAB VIEW ONLY) 92.97 mg/dL; Microalb ug/mg Crea 14.6 ug/mg Cr
== END 2020-01-05 11:02 ==
LOC: NCHCN 10:42
PROVIDERS: PCP Nurse Practitioner Family; Visit Provider Nurse Practitioner Family
DX: R03.0 Elevated blood-pressure reading, without diagnosis of hypertension (principal); E11.9 Type 2 diabetes mellitus without complications
CPT/HCPCS: 82043; 82565; 82570; 84156

== ENCOUNTER 2020-01-18 01:32 | Outpatient (CLI) | payer MEDICAID, SELFPAY ==
--- NOTE | 2020-01-18 | DI.MRI_ITS ---
EXAM: MR THORACIC SPINE WO CLINICAL HISTORY: BACK PAIN,M54.2. TECHNIQUE: Multiplanar multisequence MRI of the Thoracic spine was performed. CONTRAST MATERIAL: Noncontrast COMPARISON: No exams were available for comparison FINDINGS: Bones: The vertebral body heights are well maintained. There is a mild to moderate levoscoliosis in t he lumbar region seen on the coating and baking operator view.. The signal characteristics are unremarkable. Cord: The thoracic cord is normal size and signal intensity. No intrinsic cord lesion is present. Discs: No disc herniation or bulge is present. There are endplate osteophytes projecting mainly anter iorly and toward the right. There is is no central canal stenosis or neural foraminal narrowing. Soft tissues: Normal. No paraspinal mass. . IMPRESSION: Mild degenerative disc changes. No evidence of disc herniation or other acute abnormality.. DATA REPOSITORY:
== END 2020-01-18 01:52 ==
PROVIDERS: PCP Nurse Practitioner Family; Visit Provider Nurse Practitioner Family
DX: M54.9 Dorsalgia, unspecified (principal); M47.814 Spondylosis without myelopathy or radiculopathy, thoracic region; M25.78 Osteophyte, vertebrae
CPT/HCPCS: 72146

== ENCOUNTER 2020-01-24 00:19 | Outpatient (CLI) | payer MEDICAID, SELFPAY ==
--- NOTE | 2020-01-24 14:45 | DI.MRI_ITS ---
EXAM: MR CERVICAL SPINE WO CLINICAL HISTORY: NECK PAIN,M47.22,SPONDYLOSIS WITH RADICULOPATHY,PARKINSONS DISEASE,G20. TECHNIQUE: Multiplanar multisequence MRI was performed. COMPARISON: No exams were available for comparison FINDINGS: MR examination the cervical spine was performed according to the usual protocol. There is signal los s of the intervertebral discs throughout the cervical region. Mild Maricarmen discal vertebral signal valencia ges are noted at C6-7. No other significant bony signal abnormality seen. Images obtained through the posterior fossa are unremarkable. Spinal cord is of normal diameter and shows normal signal throughout. At C2-3, there is a mild left sided prominence of the disc osteophyte complex without evidence of darlene ral impingement. Normal central spinal canal and neural foramina. No significant findings at C 3 4 or C4-5. At C5-6 there is prominence of the disc osteophyte complex, minimal anterior cord deformity results b ut there is no gross central canal spinal stenosis. There is bilateral neural foraminal stenosis at this level. At C6-7 there is neural foraminal narrowing on the right. Mild prominence of the disc osteophyte com plex noted without disc herniation. No central canal spinal stenosis or left-sided neural foraminal stenosis. IMPRESSION: Degenerative changes, neural foraminal narrowing noted at C5-6 bilaterally and C6-7 on the right. C5-6 prominence of the disc osteophyte complex, mild superimposed disc herniation not excluded. Mini mal anterior cord deformity associated with the disc findings at this level. This may represent mild impingement. No intra cord signal abnormality seen. DATA REPOSITORY:
== END 2020-01-24 00:39 ==
PROVIDERS: PCP Nurse Practitioner Family; Visit Provider Nurse Practitioner Family
DX: M25.78 Osteophyte, vertebrae (principal); M50.31 Other cervical disc degeneration, high cervical region; M48.01 Spinal stenosis, occipito-atlanto-axial region
CPT/HCPCS: 72141

== ENCOUNTER 2020-01-26 02:19 | Outpatient (CLI) | payer MEDICAID, SELFPAY ==
--- NOTE | 2020-01-26 14:35 | DI.MRI_ITS ---
EXAM: MR LUMBAR SPINE WO CLINICAL HISTORY: BACK PAIN,M54.2. TECHNIQUE: Multiplanar multisequence MRI was performed. COMPARISON: No exams were available for comparison FINDINGS: MR examination lumbosacral spine was performed according to the usual protocol. No significant bony signal abnormality seen. There is mild loss signal in the intervertebral discs throughout the lumbar region sparing L5-S1 consistent with disc degeneration. Conus medullaris appears intact. No significant findings from the T11-12 through the L 3 4 level, wi th no evidence disc herniation, central canal spinal stenosis, or neural foraminal stenosis. At L4-5, there is mild hypertrophic facet change bilaterally. No evidence of neural foraminal stenos is, central canal spinal stenosis, or disc herniation. There is a mild disc bulge. At L5-S1, there is moderate bilateral facet hypertrophic degenerative change. There is a moderate di sc bulge without focal disc herniation. There is no evidence of a central canal spinal stenosis or n eural foraminal stenosis. IMPRESSION: Degenerative facet changes at L4-5 and L5-S1. No other significant findings. DATA REPOSITORY:
== END 2020-01-26 02:39 ==
PROVIDERS: PCP Nurse Practitioner Family; Visit Provider Nurse Practitioner Family
DX: M47.816 Spondylosis without myelopathy or radiculopathy, lumbar region (principal); M47.817 Spondylosis without myelopathy or radiculopathy, lumbosacral region
CPT/HCPCS: 72148

== ENCOUNTER 2020-02-13 10:28 | Emergency (ER) | payer MEDICAID, SELFPAY ==
[2020-02-13] VITALS (20 sets, daily range): BP systolic 125–158; BP diastolic 66–91; PULSE 73–101; RESP 11–41; TEMP 37–37.2; O2SAT 95–98
--- NOTE | 2020-02-13 10:15 | RT.EKG_ITS ---
APPROVED REPORT Exam: Resting ECG Patient Location: E HR:80 bpm ECG Measurements Heart Rate 80 AXIS NE 145 P 49 QRSd 109 QRS 38 QT 389 T 28 QTc 450 Conclusion Sinus rhythm...normal P axis, V-rate 60- 99
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
[2020-02-13 10:58] LABS: Absolute Basophil Count 0.02 10^3/uL (0.0-0.2); Absolute Lymphocyte Count 2.32 10^3/uL (1.2-3.4); Absolute Monocyte Count 0.33 10^3/uL (0.1-0.8); Absolute Neutrophil Count 2.01 10^3/uL (1.2-6.7); Basophils % 0.4; Eosinophils % 2.1; HCT 42.2 % (36.0-46.0); Lymphocytes % 48.5; MCH 30.3 pg (27.0-33.0); MCHC 33.2 % (32.0-36.0); MCV 91.3 fL (80-95); MPV 9.6 fL (8.0-11.0); Monocytes % 6.9; Neutrophils % 42.1; Nucleated RBC 0 %; Platelet Count 253 10^3/uL (130-400); RBC 4.62 10^6/uL (3.93-5.22); RDW 11.9 % (11.7-14.6); RDW-SD 39.7 fL; WBC 4.78 10^3/uL (4.4-10.8)
[2020-02-13] MEDS: Normal Saline Flush 10 ML SYR IVP (10:58)
--- NOTE | 2020-02-13 11:03 | NUR.NOTE ---
pt provided with diabetic meal tray Nursing Note:
[2020-02-13 11:16] LABS: ALT 21 U/L (14-59); AST 11 U/L (15-37); Albumin 3.8 g/dL (3.4-5.0); Alkaline Phosphatase 92 U/L (46-116); Anion Gap 7.3 mmol/L (3-11); BUN 13 mg/dL (7-18); Bilirubin, Total 0.3 mg/dL (0.2-1.0); CO2 27.7 mmol/L (21.0-32.0); CREATININE 0.69 mg/dL (0.55-1.02); Calcium 8.9 mg/dL (8.5-10.1); Chloride 109 mmol/L (98-107); Glucose 110 mg/dL (74-106); Magnesium 2.3 mg/dL (1.8-2.4); Potassium 3.6 mmol/L (3.5-5.1); Sodium 144 mmol/L (136-145); Total Protein 6.9 g/dL (6.4-8.2); Troponin I < 0.05 ng/mL (<0.06)
[2020-02-13] MEDS: Sucralfate 1 GM TAB PO (11:41)
[2020-02-13 11:57] LABS: Bilirubin Negative (Negative); Blood Trace-intact (Negative); Clarity Clear (Clear); Glucose Negative (Negative); Ketones Negative (Negative); Leukocyte Esterase Negative (Negative); Nitrite Negative (Negative); Urobilinogen 0.2 EU/dL (Up TO 0.2); pH 7.5 (5-8)
[2020-02-13 12:13] LABS: Bacteria Negative HPF (Negative); Casts Negative LPF (Negative); Crystals Negative HPF (Negative); Epithelial Cells Negative HPF (Negative); Mucus Negative (Negative); RBC 0-2 HPF (0-2); WBC 0-2 HPF (0-5)
[2020-02-13 12:14] LABS: C & S Indicated? No
== END 2020-02-13 13:01 | disposition home or self-care (01) ==
PROVIDERS: Emergency Provider Emergency Medicine; PCP Nurse Practitioner Family
DX: K29.00 Acute gastritis without bleeding (principal); E11.9 Type 2 diabetes mellitus without complications; Z79.84 Long term (current) use of oral hypoglycemic drugs; G20 Parkinson's disease
CPT/HCPCS: 36415; 36416; 80053; 82962; 93005; 99284; 81003; 81015; 83735; 84484; 85025; 93010

== ENCOUNTER 2020-02-23 11:20 | Outpatient (CLI) | payer MEDICAID, SELFPAY ==
--- NOTE | 2020-02-23 06:00 | DI.RAD_ITS ---
EXAM: XR PAIN CLINIC LUMBAR SP 2V CLINICAL HISTORY: Bilateral Lumbar Medial Branch Block TECHNIQUE: 2D and realtime digital imaging was performed. CONTRAST MATERIAL: Refer to procedure report. COMPARISON: No exams were available for comparison FINDINGS: Fluoroscopy was provided for Dr. Cueva during the performance of a bilateral lumbar medial branch blo ck. Please refer to the procedure report for complete details. Fluoro time: 55.8 seconds IMPRESSION:
[2020-02-23 12:03] VITALS: BP 138/89; PULSE 84; RESP 17; TEMP 36.8; O2SAT 97
--- NOTE | 2020-02-23 12:53 | PDOC.PAIN ---
Pain Clinic Procedure Note Procedure Note Procedure Note: Lumbar/Sacral Medial Branch Blocks SANGITA FLOR has been referred to the [facility] for lumbar/sacral medial branch blocks. COMMENTS: This is her first block. I did review the notes from Ms. Ruiz. DX: Lumbosacral spondylosis without myelopathy Patient was interviewed and the medical record reviewed. There were no medical, pharmacologic, radiographic or other structural contraindications to attempting fluoroscopically guided local anesthetic lumbar/sacral medial branch blocks. Risks and expected side effects as well as potential benefit of the procedure were reviewed and voiced concerns addressed. The printed consent form was signed and witnessed. Standard time-out procedure was performed. Patient was placed in the prone position on the fluoroscopy table and automated blood pressure cuff and pulse oximeter applied. The skin entry points for approaching the anatomic target points of the segmental medial branches of bilateral L3-L5 were identified with anfluoroscopy and marked. Following thorough Chlorhexadine preparation of the skin and draping and 1% lidocaine infiltration of the skin entry points and subcutaneous tissues, a 22 gauge spinal needle was placed under fluoroscopic guidance down on to the target point for each respective segmental medial branch.Position was confirmed in A/P, oblique and lateral views with 0.25ml of omnipaque 240. At this point I injected 0.5 cc of 0.5% Bupivacaine at each segmental nerve. Vital signs were stable throughout the procedure and were as recorded in the docflowsheet by the nursing staff. Follow up plans and appointments were discussed and was instructed to keep careful note of how the usual pain was modified by these injections. Specifically was asked to keep a pain diary for the next 24 hours using a numeric pain scale of 0-10 and report these results at the follow-up visit. Post procedure instruction was given as documented in the nursing documentation and having met discharge criteria. Patient was discharged from the [facility]. Based on the medial branches blocked today, if the patient has adequate relief and we are able to proceed to radiofrequency ablation, the treatment should result in the denervation of the bilateral L4-L5 and L5-S1 FACET JOINTS. We would expect to denervate a total of 4 facets during the radiofrequency ablation. COMMENTS: She will call back with the 1-4 hour post-procedure pain scores. Parish Cueva DO, MPH Pain Management CC: Everett Ramirez
[2020-02-23 12:55] VITALS: BP 137/83; PULSE 88; RESP 21; O2SAT 99
[2020-02-23] MEDS: Omnipaque 240 MG/ML 50 ML BTL IJ (12:56)
[2020-02-23] MEDS: Bupivacaine 0.5% Pres-Free 10 ML VIAL IJ (12:56)
== END 2020-02-23 11:40 ==
PROVIDERS: PCP Nurse Practitioner Family; Visit Provider Preventive Medicine Occupational Medicine
DX: M47.817 Spondylosis without myelopathy or radiculopathy, lumbosacral region (principal)
CPT/HCPCS: 64493; 64494; 72100; Q9967

== ENCOUNTER 2020-06-26 10:47 | Outpatient (CLI) | payer MEDICAID, SELFPAY ==
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
== END 2020-06-26 11:07 ==
PROVIDERS: PCP Nurse Practitioner Family; Visit Provider Family Medicine
DX: M25.531 Pain in right wrist (principal); M19.031 Primary osteoarthritis, right wrist
CPT/HCPCS: 73110

== ENCOUNTER 2020-10-19 12:24 | Outpatient (REF) | payer MEDICAID, SELFPAY ==
[2020-10-19 18:22] LABS: Bilirubin Negative (Negative); Blood Small (Negative); Clarity Clear (Clear); Glucose Negative (Negative); Ketones Negative (Negative); Leukocyte Esterase Negative (Negative); Nitrite Negative (Negative); Specific Gravity <= 1.005 (1.005-1.025); Urobilinogen 0.2 EU/dL (Up TO 0.2); pH 5.5 (5-8)
[2020-10-19 18:32] LABS: Bacteria Negative HPF (Negative); Casts Negative LPF (Negative); Crystals Negative HPF (Negative); Epithelial Cells Rare HPF (Negative); Mucus Negative (Negative); RBC 0-2 HPF (0-2); WBC Negative HPF (0-5)
[2020-10-19 18:33] LABS: C & S Indicated? No
[2020-10-19 18:48] LABS: Absolute Basophil Count 0.02 10^3/uL (0.0-0.2); Absolute Eosinophil Count 0.08 10^3/uL (0.0-0.7); Basophils % 0.5; Eosinophils % 1.9; HCT 42.3 % (36.0-46.0); HGB 14.4 g/dL (11.2-15.7); MCH 30.8 pg (27.0-33.0); MCV 90.6 fL (80-95); Neutrophils % 48.6; Nucleated RBC 0 %; Platelet Count 267 10^3/uL (130-400); RBC 4.67 10^6/uL (3.93-5.22); RDW 12.2 % (11.7-14.6); RDW-SD 40.4 fL; WBC 4.29 10^3/uL (4.4-10.8)
[2020-10-19 18:53] LABS: Absolute Neutrophil Count 2.08 10^3/uL (1.2-6.7)
[2020-10-19 18:59] LABS: ALT 21 U/L (14-59); AST 14 U/L (15-37); Albumin 4.3 g/dL (3.4-5.0); Alkaline Phosphatase 102 U/L (46-116); BUN 5 mg/dL (7-18); Bilirubin, Total 0.5 mg/dL (0.2-1.0); CREATININE 0.7 mg/dL (0.55-1.02); Calcium 9.2 mg/dL (8.5-10.1); Chloride 109 mmol/L (98-107); Glucose 114 mg/dL (74-106); Potassium 3.9 mmol/L (3.5-5.1); Sodium 144 mmol/L (136-145); TSH (W/Ref FT4) 0.43 uIU/mL (0.36-3.74); Total Protein 6.9 g/dL (6.4-8.2)
== END 2020-10-19 12:25 | disposition home or self-care (01) ==
LOC: NCHCN 12:24
PROVIDERS: PCP Nurse Practitioner Family; Visit Provider Nurse Practitioner Family
DX: E11.9 Type 2 diabetes mellitus without complications (principal); R11.0 Nausea; Z79.899 Other long term (current) drug therapy; R82.998 Other abnormal findings in urine
CPT/HCPCS: 80053; 81003; 81015; 84443; 85025

== ENCOUNTER 2020-12-20 14:21 | Outpatient (REF) | payer MEDICAID, SELFPAY ==
[2020-12-22 13:02] LABS: COVID-19 RT-PCR UVMMC Result Negative (Negative)
== END 2020-12-20 14:22 | disposition home or self-care (01) ==
LOC: LBN 14:21
PROVIDERS: PCP Nurse Practitioner Family; Visit Provider Physician Assistant Medical
DX: Z20.822 Contact with and (suspected) exposure to COVID-19 (principal); J06.9 Acute upper respiratory infection, unspecified
CPT/HCPCS: U0003

== ENCOUNTER 2021-02-16 13:58 | Outpatient (REF) | payer MEDICAID, SELFPAY ==
[2021-02-18 10:56] LABS: COVID-19 RT-PCR UVMMC Result Negative (Negative)
== END 2021-02-16 13:59 | disposition home or self-care (01) ==
LOC: LBN 13:58
PROVIDERS: PCP Nurse Practitioner Family; Visit Provider Nurse Practitioner Family
DX: R42 Dizziness and giddiness (principal); Z20.822 Contact with and (suspected) exposure to COVID-19; J06.9 Acute upper respiratory infection, unspecified
CPT/HCPCS: U0003; 87086

== ENCOUNTER 2021-03-19 14:19 | Outpatient (REF) | payer MEDICAID, SELFPAY ==
[2021-03-19 15:59] LABS: ALT 19 U/L (14-59); AST 13 U/L (15-37); Alkaline Phosphatase 94 U/L (46-116); Anion Gap 8.5 mmol/L (3-11); BUN 7 mg/dL (7-18); Bilirubin, Total 0.4 mg/dL (0.2-1.0); CO2 29.5 mmol/L (21.0-32.0); CREATININE 0.8 mg/dL (0.55-1.02); Chloride 107 mmol/L (98-107); Glucose 95 mg/dL (74-106); Potassium 4.1 mmol/L (3.5-5.1); Sodium 145 mmol/L (136-145); Total Protein 6.6 g/dL (6.4-8.2)
[2021-03-19 16:02] LABS: Hemoglobin A1C 6.2 % (<5.7)
[2021-03-19 16:11] LABS: Calculated LDL 147 mg/dL (<100); Cholesterol 239 mg/dL (<200); HDL Cholesterol 60 mg/dL (40-60); Triglyceride 164 mg/dL (<150)
[2021-03-20 10:43] LABS: Hepatitis C Ab w Rflx HCV PCR Negative (Negative)
[2021-03-20 12:02] LABS: HIV-1/2 Ag & Ab Screen Negative (Negative)
== END 2021-03-19 14:20 | disposition home or self-care (01) ==
LOC: LBN 14:19
PROVIDERS: PCP Nurse Practitioner Family; Visit Provider Nurse Practitioner Family
DX: E11.9 Type 2 diabetes mellitus without complications (principal); E78.5 Hyperlipidemia, unspecified; Z11.4 Encounter for screening for human immunodeficiency virus [HIV]; Z11.59 Encounter for screening for other viral diseases; R35.0 Frequency of micturition
CPT/HCPCS: 80053; 80061; 86803; 87389; 83036; 87086

== ENCOUNTER 2021-06-10 18:02 | Outpatient (REF) | payer MEDICAID, SELFPAY ==
[2021-06-10 18:11] LABS: Bilirubin Negative (Negative); Blood Moderate (Negative); Clarity Clear (Clear); Glucose 250 mg/dL (Negative); Ketones Trace mg/dL (Negative); Leukocyte Esterase Negative (Negative); Nitrite Negative (Negative); Specific Gravity >= 1.030 (1.005-1.025); Urobilinogen 0.2 EU/dL (Up TO 0.2); pH 5.5 (5-8)
[2021-06-10 18:18] LABS: Bacteria Rare HPF (Negative); C & S Indicated? C&S Done As Ordered; Casts Negative LPF (Negative); Crystals Few Calcium Oxalate HPF (Negative); Epithelial Cells Few HPF (Negative); Mucus Trace (Negative)
== END 2021-06-10 18:03 | disposition home or self-care (01) ==
LOC: LBN 18:02
PROVIDERS: PCP Nurse Practitioner Family; Visit Provider Nurse Practitioner Gerontology
DX: R31.29 Other microscopic hematuria (principal); R30.0 Dysuria
CPT/HCPCS: 81003; 81015; 87086

== ENCOUNTER 2021-06-17 14:23 | Outpatient (REF) | payer MEDICAID, SELFPAY ==
[2021-06-17 21:19] LABS: HCT 44.9 % (36.0-46.0); HGB 14.9 g/dL (11.2-15.7); MCH 30.2 pg (27.0-33.0); MCHC 33.2 % (32.0-36.0); MCV 90.9 fL (80-95); MPV 10.2 fL (8.0-11.0); Platelet Count 283 10^3/uL (130-400); RBC 4.94 10^6/uL (3.93-5.22); RDW-SD 39.8 fL; WBC 5.04 10^3/uL (4.4-10.8)
[2021-06-17 21:29] LABS: ALT 18 U/L (14-59); AST 10 U/L (15-37); Albumin 4.5 g/dL (3.4-5.0); Anion Gap 8.1 mmol/L (3-11); BUN 9 mg/dL (7-18); Bilirubin, Total 0.5 mg/dL (0.2-1.0); CO2 28.9 mmol/L (21.0-32.0); CREATININE 0.6 mg/dL (0.55-1.02); Calcium 9.3 mg/dL (8.5-10.1); Chloride 104 mmol/L (98-107); Glucose 114 mg/dL (74-106); Sodium 141 mmol/L (136-145); Total Protein 7.5 g/dL (6.4-8.2)
[2021-06-17 21:36] LABS: Hemoglobin A1C 6.1 % (<5.7)
[2021-06-17 21:55] LABS: Alkaline Phosphatase 118 U/L (46-116)
== END 2021-06-17 14:24 | disposition home or self-care (01) ==
LOC: NCHCN 14:23
PROVIDERS: PCP Nurse Practitioner Family; Visit Provider Nurse Practitioner Family
DX: E11.9 Type 2 diabetes mellitus without complications (principal)
CPT/HCPCS: 80053; 85027; 83036

== ENCOUNTER 2021-08-06 14:38 | Emergency (ER) | payer MEDICAID, SELFPAY ==
[2021-08-06 14:38] VITALS: BP 153/86; PULSE 102; TEMP 37.3; O2SAT 96
[2021-08-06 14:53] VITALS: RESP 16
--- NOTE | 2021-08-06 15:00 | RT.EKG_ITS ---
APPROVED REPORT Exam: Resting ECG Reason for Exam: weakness Patient Location: E HR:92 bpm ECG Measurements Heart Rate 92 AXIS SC 134 P 65 QRSd 102 QRS 23 QT 381 T 25 QTc 472 Conclusion Sinus rhythm...normal P axis, V-rate 60- 99
--- NOTE | 2021-08-06 15:11 | DI.RAD_ITS ---
Exam(s) XR CHEST 1V IN DI DEPT EXAM: XR CHEST 1V IN DI DEPT CLINICAL HISTORY: weakness. TECHNIQUE: 2D digital imaging was performed. COMPARISON: CR,XR XR CHEST 2V PA LATERAL from 06/18/2019 FINDINGS: Heart size is upper normal. The mediastinum is not widened. Lungs are clear. No infiltrates nor obvious pleural effusions. IMPRESSION: No acute pulmonary findings on this single AP portable view of the chest. DATA REPOSITORY: RADIATION DOSE DELIVERED: All CT scans at this facility use at least one of these dose optimization techniques: automated exposure control; mA and/or kV adjustment per patient size (includes targeted e xams where dose is matched to clinical indication); or iterative reconstruction.
[2021-08-06 15:28] LABS: Abs Immature Grans 0.01 10^3/uL (0.0-0.06); Absolute Basophil Count 0.03 10^3/uL (0.0-0.2); Absolute Eosinophil Count 0.06 10^3/uL (0.0-0.7); Absolute Lymphocyte Count 2.05 10^3/uL (1.2-3.4); Absolute Monocyte Count 0.39 10^3/uL (0.1-0.8); Absolute Neutrophil Count 2.12 10^3/uL (1.2-6.7); Basophils % 0.6; Eosinophils % 1.3; HCT 42.3 % (36.0-46.0); HGB 14.5 g/dL (11.2-15.7); Immature Grans % 0.2; MCHC 34.3 % (32.0-36.0); MCV 90.6 fL (80-95); MPV 9.3 fL (8.0-11.0); Monocytes % 8.4; Neutrophils % 45.5; Nucleated RBC 0 %; Platelet Count 214 10^3/uL (130-400); RBC 4.67 10^6/uL (3.93-5.22); RDW 12.1 % (11.7-14.6); RDW-SD 40.2 fL; WBC 4.66 10^3/uL (4.4-10.8)
[2021-08-06] MEDS: Acetaminophen 325 MG TAB 650 MG PO (15:32)
[2021-08-06] MEDS: Lactated Ringers 1,000 ML 1000 ML IV (15:32)
[2021-08-06 15:46] LABS: Bilirubin Negative (Negative); Blood Small (Negative); Clarity Clear (Clear); Glucose Negative (Negative); Ketones Negative (Negative); Leukocyte Esterase Negative (Negative); Nitrite Negative (Negative); Specific Gravity 1.015 (1.005-1.025); Urobilinogen 0.2 EU/dL (Up TO 0.2)
[2021-08-06 15:51] LABS: ALT 11 U/L (14-59); AST 10 U/L (15-37); Albumin 4.1 g/dL (3.4-5.0); Alkaline Phosphatase 86 U/L (46-116); Anion Gap 9.1 mmol/L (3-11); BUN 14 mg/dL (7-18); Bilirubin, Total 0.5 mg/dL (0.2-1.0); CO2 26.9 mmol/L (21.0-32.0); CREATININE 0.7 mg/dL (0.55-1.02); Calcium 9.2 mg/dL (8.5-10.1); Chloride 109 mmol/L (98-107); Glucose 111 mg/dL (74-106); Lipase 227 U/L (73-393); Magnesium 2.4 mg/dL (1.8-2.4); Potassium 3.5 mmol/L (3.5-5.1); Sodium 145 mmol/L (136-145); Troponin I < 50 ng/L (<or=60)
[2021-08-06 15:53] LABS: Bacteria Negative HPF (Negative); C & S Indicated? No; Casts Negative LPF (Negative); Crystals Negative HPF (Negative); Epithelial Cells Few HPF (Negative); Mucus Negative (Negative); Other Cells Negative (Negative); RBC Negative HPF (0-2); WBC Negative HPF (0-5)
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
--- NOTE | 2021-08-06 16:30 | DI.CT_ITS ---
Exam(s) CT ABDOMEN PELVIS W EXAM: CT ABDOMEN PELVIS W CLINICAL HISTORY: lower abdominal pain. TECHNIQUE: Imaging Protocol: Axial computed tomography images with coronal and sagittal reformatted images were created and reviewed CONTRAST MATERIAL: Intravenous: Omnipaque 100cc Oral: None COMPARISON: CT CT CHEST PE CTA from 09/07/2019 FINDINGS: VISUALIZED LUNG BASES: No nodules nor pleural effusions evident. Elevated left hemidiaphragm. Left hemidiaphragm is mildly elevated. No associated eventrated. ABDOMEN: There is no ascites. LIVER: There are no focal hepatic lesions evident . GALLBLADDER/BILIARY: No obvious gallbladder pathology. CBD is mildly dilated measuring 9 millimeters . There are no calculi in the lower CBD. No mass evident within the CBD. No obvious pancreatic hea d mass. PANCREAS: No evidence of pancreatic mass nor dilatation of the pancreatic duct. SPLEEN: Spleen is not enlarged. No obvious intrasplenic lesions. Splenic and portal veins are paten t. ADRENALS: There are no significant adrenal masses. KIDNEYS:2 small cysts are noted in the right kidney, the larger measuring 1 cm. No solid lesions in either kidney. No calculi. No hydronephrosis no hydroureter. No calculi nor masses in the urinary bladder. Mild bladder cystocele noted.. ABDOMINAL AORTA: Abdominal aorta is not enlarged. LYMPH NODES:There is no retroperitoneal nor paraaortic adenopathy. ABDOMINAL WALL: Small fat containing umbilical hernia. No bowel loops therein. GI: Fluid-filled small bowel loops which are not dilated, averaging 2 cm diameter. PELVIS: GI: Appendix not easily identified. No evidence of obvious appendicitis.No evidence of sigmoid diver ticulitis. LYMPH NODES: There is no intrapelvic nor inguinal adenopathy. REPRODUCTIVE: Uterus and adnexal regions unremarkable. No free fluid. URINARY BLADDER: Mild cystocele. OSSEOUS: No significant osseous lesions. IMPRESSION: 1. CBD diameter is 9-10 millimeters which is slightly prominent. There are no obvious calculi nor ob vious mass in the lower CBD and pancreatic head. Correlation with appropriate blood work recommended . 2. Small benign cysts in the right kidney. Also small bladder cystocele. 3. Fluid-filled small bowel loops without evidence of obvious bowel obstruction. 4. RADIATION DOSE DELIVERED: 849.46mGy.cm Total DLP DATA REPOSITORY: All CT scans at this facility are submitted to the National Radiology Data Registry (NRDR) Dose Index Registry (DIR) with the [employer] (A[employer]). RADIATION OPTIMIZATION: All CT scans at this facility use at least one of these dose optimization te chniques: automated exposure control; mA and/or kV adjustment per patient size (includes targeted exa ms where dose is matched to clinical indication); or iterative reconstruction.
[2021-08-06] MEDS: Omnipaque 350 MG/ML 100 ML BTL IJ (16:34)
== END 2021-08-06 17:30 | disposition home or self-care (01) ==
PROVIDERS: Physician Assistant; Emergency Provider Registered Nurse Emergency; PCP Nurse Practitioner Family
DX: R53.1 Weakness (principal); R10.9 Unspecified abdominal pain; R11.0 Nausea; E11.9 Type 2 diabetes mellitus without complications
CPT/HCPCS: 36415; 80053; 83690; 93005; 96360; 99285; 71045; 74177; 81003; 81015; 83735; 84484; 85025; 93010; 99283; J3490

== ENCOUNTER 2021-09-24 17:24 | Outpatient (REF) | payer MEDICAID, SELFPAY ==
[2021-09-24 19:22] LABS: Bilirubin Negative (Negative); Blood Trace-intact (Negative); Clarity Clear (Clear); Glucose Negative (Negative); Ketones Negative (Negative); Leukocyte Esterase Negative (Negative); Nitrite Negative (Negative); Specific Gravity <= 1.005 (1.005-1.025); Urobilinogen 0.2 EU/dL (Up TO 0.2); pH 5.5 (5-8)
[2021-09-24 21:07] LABS: Bacteria Negative HPF (Negative); C & S Indicated? No; Casts Negative LPF (Negative); Crystals Negative HPF (Negative); Epithelial Cells Rare HPF (Negative); Mucus Negative (Negative); Other Cells Negative (Negative); RBC Negative HPF (0-2); WBC Negative HPF (0-5)
== END 2021-09-24 17:25 | disposition home or self-care (01) ==
LOC: LBN 17:24
PROVIDERS: PCP Nurse Practitioner Family; Visit Provider Nurse Practitioner Gerontology
DX: R31.29 Other microscopic hematuria (principal)
CPT/HCPCS: 81003; 81015

== ENCOUNTER 2021-10-07 15:43 | Outpatient (REF) | payer MEDICAID, SELFPAY ==
[2021-10-07 16:59] LABS: Abs Immature Grans 0.01 10^3/uL (0.0-0.06); Absolute Basophil Count 0.02 10^3/uL (0.0-0.2); Absolute Eosinophil Count 0.04 10^3/uL (0.0-0.7); Absolute Lymphocyte Count 2.17 10^3/uL (1.2-3.4); Absolute Monocyte Count 0.35 10^3/uL (0.1-0.8); Absolute Neutrophil Count 2.11 10^3/uL (1.2-6.7); Basophils % 0.4; Eosinophils % 0.9; HCT 43.6 % (36.0-46.0); HGB 14.3 g/dL (11.2-15.7); Immature Grans % 0.2; Lymphocytes % 46.2; MCH 30.9 pg (27.0-33.0); MCHC 32.8 % (32.0-36.0); MCV 94 fL (80-95); MPV 10.2 fL (8.0-11.0); Monocytes % 7.4; Neutrophils % 44.9; Platelet Count 250 10^3/uL (130-400); RBC 4.63 10^6/uL (3.93-5.22); RDW 11.8 % (11.7-14.6); RDW-SD 40.9 fL
[2021-10-07 17:18] LABS: ALT 18 U/L (14-59); AST 13 U/L (15-37); Albumin 4.4 g/dL (3.4-5.0); Alkaline Phosphatase 88 U/L (46-116); Anion Gap 8.7 mmol/L (3-11); BUN 10 mg/dL (7-18); Bilirubin, Total 0.6 mg/dL (0.2-1.0); CO2 26.3 mmol/L (21.0-32.0); CREATININE 0.7 mg/dL (0.55-1.02); Chloride 106 mmol/L (98-107); Glucose 106 mg/dL (74-106); Potassium 4.1 mmol/L (3.5-5.1); Sodium 141 mmol/L (136-145)
== END 2021-10-07 15:44 | disposition home or self-care (01) ==
LOC: LBN 15:43
PROVIDERS: PCP Nurse Practitioner Family; Visit Provider Family Medicine
DX: R10.9 Unspecified abdominal pain (principal)
CPT/HCPCS: 80053; 85025; 87086

== ENCOUNTER 2021-10-23 10:06 | Outpatient (REF) | payer MEDICAID, SELFPAY ==
[2021-10-23 16:57] LABS: Bilirubin Negative (Negative); Blood Small (Negative); Clarity Clear (Clear); Glucose Negative (Negative); Ketones Negative (Negative); Leukocyte Esterase Negative (Negative); Nitrite Negative (Negative); Urobilinogen 0.2 EU/dL (Up TO 0.2); pH 5.5 (5-8)
[2021-10-23 17:18] LABS: Bacteria Negative HPF (Negative); Epithelial Cells Few HPF (Negative); Mucus Negative (Negative); WBC Negative HPF (0-5)
[2021-10-23 17:19] LABS: C & S Indicated? C&S Done As Ordered
== END 2021-10-23 10:07 | disposition home or self-care (01) ==
LOC: LBN 10:06
PROVIDERS: PCP Nurse Practitioner Family; Visit Provider Nurse Practitioner Gerontology
DX: N39.0 Urinary tract infection, site not specified (principal); R31.29 Other microscopic hematuria
CPT/HCPCS: 81003; 81015; 87086

== ENCOUNTER → 2021-10-29 01:15 | Outpatient (CLI) | payer MEDICAID, SELFPAY ==
--- NOTE | 2021-10-29 | DI.US_ITS ---
Exam(s) US ABDOMEN EXAM: US ABDOMEN CLINICAL HISTORY: ABDOMINAL CRAMPS, R10.9 TECHNIQUE: Ultrasound of complete upper abdomen performed using standard protocol. COMPARISON: CT of the abdomen 08/06/2021 was reviewed FINDINGS: There is no ascites evident. LIVER: There are no hepatic lesions evident nor obvious dilatation of intrahepatic ducts. GALLBLADDER/BILIARY: There are no gallstones. No gallbladder wall edema nor pericholecystic fluid. The common hepatic duct isnot dilated, measuring 1-2mm at the level of joseph hepatis. PANCREAS: There is no evidence of pancreatic mass nor dilatation of the pancreatic duct. SPLEEN: The spleen is not enlarged and there are no intrasplenic lesions evident. KIDNEYS:Kidneys exhibit normal size with no evidence of solid mass, calculus, nor hydronephrosis. No cortical cysts evident. ABDOMINAL AORTA: There is no evidence of abdominal aortic aneurysm. IVC: Normal diameter where visualized. IMPRESSION: 1. No evidence of cholelithiasis nor dilatation of the biliary tree. 2. No other significant ultrasound findings in the upper abdomen. 3. There is no ascites. DATA REPOSITORY:
== END ==
PROVIDERS: PCP Nurse Practitioner Family; Visit Provider Family Medicine
DX: R10.9 Unspecified abdominal pain (principal)
CPT/HCPCS: 76700

== ENCOUNTER → 2021-12-06 00:22 | Outpatient (CLI) | payer MEDICAID, SELFPAY ==
--- NOTE | 2021-12-06 | DI.RAD_ITS ---
Exam(s) XR SACROILIAC JOINTS EXAM: XR SACROILIAC JOINTS CLINICAL HISTORY: BILAT SACROILITIS, M46.1. TECHNIQUE: 2D digital imaging was performed. Three views COMPARISON: No exams were available for comparison FINDINGS: Bones: No fracture is present. No bony destructive lesion is seen. Alignment is satisfactory. Mild acetabular spurring. Hip joint spaces are well maintained. Enthesophytes are seen at the iliac win gs. SI Joint: No fusion, erosions or sclerosis is seen. Mild spurring. Soft Tissue: Normal. 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 DATA REPOSITORY: RADIATION DOSE DELIVERED:
--- OUTSIDE RECORDS SUMMARY | 2021-12-06 00:30 | XMS_ITS | Encounter Summary ---
:1960 Author Organization [facility] Address [address] [place] [address] Care Team Providers Name Role Phone Unavailable Primary Care Provider Unavailable Encounter Details Date Type Department Care Team Description 11/27/2008 Orders Only [facility] Jordy Giron MD Laboratory Services - [address] [place] [address] [place] [address] [place] [address] [phone] Social History Tobacco Use Types Packs/Day Years Used Date Never Assessed Sex Assigned at Date Recorded Not on file documented as of this encounter Plan of Treatment Not on filedocumented as of this encounter Procedures Procedure Name Priority Date/Time Associated Diagnosis Comme [facility] SURGICAL PATHOLOGY Routine 11/27/2008 0:00 EDT Re sults for this procedure are i n the results section. documented in this encounter Results SURGICAL PATHOLOGY (11/27/2008 0:00 EDT) Pathology Report: SURGICAL PATHOLOGY REPORT ? [facility] Reports generated via [employer] interface contain original data; ? LAB however they are lacking the format of the original report. ? Caution should be taken when reading/interpreting unformatted reports. ? Name: ? BASIA, SANGITA A ? Accession #: ? [id number] ? : ? 1960 (Age: 48) ??F ? Collec t Date: ? 11/27/2008 ? Location: ? [facility] ? R eceive Date: ? 11/28/2008 ? Provider: GILL EWINGELSON MD ? Copy to: GENNY TAMEZ MEDICAL ASSISTING PROGRAM DIRECTOR ? Final Pathologic Diagnosis: ? A. ?Esophagus, 35 cm, biopsies: ? 1. Squamocolumnar edmond ctional mucosa with mild chronic inflammation and ? reactive changes. ? 2. No intestinal metaplasia identified. ? B. ??Esophagus, 25 cm , biopsies: ? 1. ??Hyperplastic squ amous mucosa with mild chronic inflammation and ? reactive changes. ? See comment. ? Comment: ? While no intraepithel ial eosinophils are identified, the changes seen in ?? the esophagus would be ramirez tible with gastroesophageal reflux disease. ??The ? features of eosinophilic eso phagitis are not seen. ??(Dr. Perry)/mpl ? Document reviewed and electr onically signed by: ? Chiquis Perry MD ? Report ??Date: 11/29/2008 15 :44 ? By the signature above, the attending physician certifies that he/she has ? personally conducted a gross and/or microscopic examination of the described ? specimens and rendered or co nfirmed the above diagnosis. ? Specimen(s) Received: ? A. ?Bx 35 cm es ophagus ? B. ? Bx 25 cm esophagus ? Clinical History: ? Recurrent GERD ? Gross Description: ? [facility] labelled Sangita Taylor and bx 35 cm ? esophagus are six casillas-pink soft tissues ranging from 0.2 x 0.2 x 0.2 cm to 0.4 x 0.2 x 0.2 cm. ??The specim ens are entirely submitted as (A1) and (A2). ? Received in [facility] [place] labelled Sangita Taylor and bx 25 cm esophagus are two casillas-pink soft tissue s measuring 0.4 x 0.2 x 0.2 cm and 0.5 x 0.3 x 0.2 ?? cm. ??The specimens are enti rely submitted as (B). ??/latanya ? End of Report ? Specimen Performing Organization Address City/State/ZIP Code Phon e Number [facility] [address] [place] [address] SERVICES [facility] [address] [place] [address] documented in this encounter Visit Diagnoses Not on filedocumented in this encounter
--- OUTSIDE RECORDS SUMMARY | 2021-12-06 00:30 | XMS_ITS | Encounter Summary ---
:1960 Author Organization [facility] Address [address] [place] [address] Care Team Providers Name Role Phone Kayley Swan CAMP BOSS Primary Care Provider Encounter Details Date Type Department Care Team Description 01/24/2011 Results Only [facility] Aicha Tamez, CAMP BOSS Laboratory Services - [address] [facility] [address] [place] [phone] [place] [address] [phone] Social History Tobacco Use Types Packs/Day Years Used Date Never Assessed Sex Assigned at Date Recorded Not on file documented as of this encounter Plan of Treatment Not on filedocumented as of this encounter Procedures Procedure Name Priority Date/Time Associated Diagnosis Comme nts PAP TEST- RESULT Routine 01/24/2011 0:00 EDT Resu lts for this ONLY procedure are i n the results section. documented in this encounter Results PAP TEST- RESULT ONLY (01/24/2011 0:00 EDT) Pathology Report: CYTOPATHOLOGY REPORT ? [facility] ? LAB Reports generated via electr onic interface contain original data; ? however they are lacking the format of the original report. ? Caution should be taken when reading/interpreting unformatted reports. ? Name: ? SANGITA FLOR ? Accession #: ? [id number] ? : ? 1960 (Age: 51) ??F ?Collect Date: ? 01/24/2011 ? Location: ? [facility] ? R eceive Date: ? 01/27/2011 ? Provider: GENNY TAMEZ CAMP BOSS ? Copy to: ? Final Report ? SPECIMEN ADEQUACY ? Satisfactory for Eval uation ? - transformation zone compon ent present ? GENERAL CATEGORIZATION ? Negative for Intraepi thelial Lesion or Malignancy ? Last Menstural Period: 2 mon ths ago ? Hormonal/Contraceptive statu s: Intrauterine device ? Treatment History: Endometri al biopsy: 06/10/10 mild chronic cervicitis ? Specimen/Source: ??Pap Test, Cervix/Endocervix, ThinPrep Imaging System with ? manual evaluation ? Document reviewed and electr onically signed by: ? Eddaan Kai, CT(ASCP) ? Report ??Date: 01/30/ 2010 16:01 ? HPV with Pap Test ? Date Ordered: ? 0 01/30/2011 ? Status: ?? Signed Out ?Date Complete: ? 02/05/2011 ? By: ??System Interface ? Date Reported: ? 02/05/2011 ? Interpretation ? RESULT: Negative for HPV typ es 16, 18, 31, 33, 35, 39, 45, 51, 52, ? 56, 58, 59, and 68. ? Comments ? Document reviewed and electr onically signed by: ? System Interface ? Report date: 02/05/20 04 ? By the signature above, the attending physician certifies that he/she has ? personally conducted a gross and/or microscopic examination of the described ? specimens and rendered or co nfirmed the above diagnosis. ? End of Report ? Specimen Performing Organization Address City/State/ZIP Code Phon e Number [facility] [address] [place] [address] SERVICES [facility] [address] [place] [address] documented in this encounter Visit Diagnoses Not on filedocumented in this encounter Care Teams Chemistry Specialist Relationship Specialty Start Date End Date Kayley Swan, CAMP BOSS PCP - General 11/29/[address] [place] [phone] documented as of this encounter
--- OUTSIDE RECORDS SUMMARY | 2021-12-06 00:30 | XMS_ITS | Encounter Summary ---
:1960 Author Organization [facility] Address [address] [place] [address] Care Team Providers Name Role Phone Kayley Swan SINGLE STAYER OPERATOR Primary Care Provider Encounter Details Date Type Department Care Team Description 02/17/2021 Lab Requisition [facility] Outr Resulting Lab, Pathology & Laboratory Provider [facility] [address] [place], [place] [address] Social History Tobacco Use Types Packs/Day Years Used Date Never Assessed Sex Assigned at Date Recorded Not on file documented as of this encounter Plan of Treatment Not on filedocumented as of this encounter Procedures Procedure Name Priority Date/Time Associated Diagnosis Comme nts COVID-19 TEST [facility] Today 02/16/2021 13:50 LAB PCR EDT COVID-19 TESTING Routine 02/16/2021 13:50 Results for this EDT procedure are i n the results section. documented in this encounter Results COVID-19 TEST [facility] LAB PCR (02/16/2021 13:50 EDT) Specimen Swab - Entire nasopharynx (body structur e) Performing Organization Address City/State/ZIP Code Phon e Number [facility] [address] [place] [address] SERVICES COVID-19 TESTING (02/16/2021 13:50 EDT) COVID-19 rt-PCR Negative Negative [facility] Result Comment: [facility] This test has not been FDA c leared or approved. This test has been authorized by FDA under an EUA for use by authorized laboratories. This test has been authorized only for detection of nucleic acid fro SERVICES m 2019-nCoV, not for any oth er viruses or pathogens. This test is only authorized for the duration of the declaration that circumstances exist justifying the authorization of emergency use of in vitro d iagnostic tests for detectio n and/or diagnosis of 2019-nCoV under section 564(b)(1) of Act, 21 U.S.C ?? 360bbb-3(b) (1), unless the authorization is terminated or revoked sooner. Negative results do not prec lude 2019-nCoV infection and should not be used as the sole basis for treatment or other patient management decisions. Negative results must be combined with clinical observa tions, patient history, and epidemiological informatio n. Testing was performed using the arjun SARS-CoV-2 assay ([employer] on the Arjun 6800 System Performing Lab Arjun 6800 [facility] Lab [facility] SERVICES Specimen Swab Performing Organization Address City/State/ZIP Code Phon e Number [facility] [address] [place] [address] SERVICES documented in this encounter Visit Diagnoses Not on filedocumented in this encounter Care Teams Wafer Fab Technician Relationship Specialty Start Date End Date Kayley Swan, WOO PCP - General 11/29/[address] [place] [phone] documented as of this encounter
--- OUTSIDE RECORDS SUMMARY | 2021-12-06 00:30 | XMS_ITS | Clinical Summary ---
:1960 Author Organization [facility] Address [address] [place] [id number] Care Team Providers Name Role Phone Kayley Swan PROGRAM SUPPORT CLERK Primary Care Provider Social History Tobacco Use Types Packs/Day Years Used Date Never Assessed Sex Assigned at Date Recorded Not on file Plan of Treatment Health Maintenance Due Date Last Done Comments COVID-19 Vaccine (1) 1971 Hepatitis C Screen Completed 03/19/2021 Care Teams Cheese Blender Relationship Specialty Start Date End Date Kayley Swan, PROGRAM SUPPORT CLERK PCP - General 11/29/[address] [place] [phone]
--- OUTSIDE RECORDS SUMMARY | 2021-12-06 00:30 | XMS_ITS | Encounter Summary ---
:1960 Author Organization [facility] Address [address] [place] [address] Care Team Providers Name Role Phone BayronblaneKayley Vipul SLUMBER ROOM ATTENDANT Primary Care Provider Encounter Details Date Type Department Care Team Description 10/10/2002 Results Only [facility] - Lay Alonzo NP conversion [address] [facility] [address] [place] [phone] (Wo rk) Social History Tobacco Use Types Packs/Day Years Used Date Never Assessed Sex Assigned at Date Recorded Not on file documented as of this encounter Plan of Treatment Not on filedocumented as of this encounter Procedures Procedure Name Priority Date/Time Associated Diagnosis Comme nts SURGICAL PATHOLOGY Routine 10/10/2002 0:00 EDT Re sults for this procedure are i n the results section. documented in this encounter Results SURGICAL PATHOLOGY (10/10/2002 0:00 EDT) Pathology Report: SURGICAL PATHOLOGY REPORT [facility] Reports generated via electronic interface contain fabienne ginal data; LAB however they are lacking the format of the original re port. Caution should be taken when reading/interpreting unfo rmatted reports. Name: ? SANGITA FLOR ? Accession #: ? [id number] ? : ? 1960 (Age: 42) ??F ? Collect Date: ? 10/10/2002 ? Location: ? [facility] ? Receive Date: ? 003 ? Provider: LAY ROBLERO NP Copy to: VIRA ARMENTA MD ? Final Pathologic Diagnosis: ? Endometrium, biopsy: 1. ?Scant inactive endometrium. ??See com ment. 2. ?Scant benign endo- and ectocervical t issue. Comment: ? Deeper sections of the specimen were examined. ??(Dr. Garcia)/[facility] Document reviewed and electronically signed by: DIANA DOTSON MD Report ??Date: 10/17/2002 09:15 By the signature above, the attending physician certif ies that he/she has personally conducted a gross and/or microscopic examin ation of the described specimens and rendered or confirmed the above diagnosi s. Specimen(s) Received: ? Endometrial biopsy Clinical History: ? DUB ??on Depo-Provera Gross Description: ? Received in formalin labelled Claudia and endometrial biopsy are 1.0 x 1.0 x 0.3 cm of multiple casillas-red hemorrhagic pre dominantly mucoid soft tissue fragments. ??The specimen is entirely submitted in one cassette. ??(Clarissa Martinez)/[facility] End of Report Specimen Performing Organization Address City/State/ZIP Code Phon e Number [facility] [address] [place] [address] SERVICES [facility] [address] [place] [address] documented in this encounter Visit Diagnoses Not on filedocumented in this encounter Care Teams Drier Tender Naphthalene Relationship Specialty Start Date End Date Kayley Swan NP PCP - General 11/29/[address] [phone] documented as of this encounter
--- OUTSIDE RECORDS SUMMARY | 2021-12-06 00:30 | XMS_ITS | Encounter Summary ---
:1960 Author Organization [facility] Address [address] [place] [address] Care Team Providers Name Role Phone Kayley Swan RAG CUTTING MACHINE TENDER Primary Care Provider Encounter Details Date Type Department Care Team Description 03/06/2016 Results Only [facility]- Leslie Garcia, WEIGHTS AND MEASURES INSPECTOR [phone] [address] [place] [address] (Wo rk) Social History Tobacco Use Types Packs/Day Years Used Date Never Assessed Sex Assigned at Date Recorded Not on file documented as of this encounter Plan of Treatment Not on filedocumented as of this encounter Procedures Procedure Name Priority Date/Time Associated Diagnosis Comme nts PAP TEST- RESULT Routine 03/06/2016 0:00 Results for this ONLY EDT procedure are i n the results section. documented in this encounter Results PAP TEST- RESULT ONLY (03/06/2016 0:00 EDT) Pathology Report: CYTOPATHOLOGY REPORT [facility] Reports generated via electronic interface contain fabienne ginal data; SERVICES however they are lacking the format of the original re port. Caution should be taken when reading/interpreting unfo rmatted reports. Name: ? SANGITA FLOR ? Accession #: ? [id number] : ? 1960 (Age: [age]) ??F ?Collect Date: ? 03/06 Location: ? [facility] ? Receive Date : ? 03/07/2016 Provider: ?LESLIE SARABIA WEIGHTS AND MEASURES INSPECTOR Copy to: ? Specimen/Source: ? Pap Test, Cervix, ThinPrep Imaging System with manual evaluation Last Menstrual Period: ? SPECIMEN ADEQUACY ? Satisfactory for Evaluation - transformation zone component present GENERAL CATEGORIZATION ? Negative for Intraepithelial Lesion or Malignan cy ? Document reviewed and electronically signed by: ? DAVID Evans(ASCP) ? Report Date: ??03/10/2016 13:42 End of Report Specimen Performing Organization Address City/State/ZIP Code Phon e Number [facility] [address] [place] [address] SERVICES documented in this encounter Visit Diagnoses Not on filedocumented in this encounter Care Teams Dental Services Director Relationship Specialty Start Date End Date Kayley Swan NP PCP - General 11/29/[address] [phone] documented as of this encounter
--- OUTSIDE RECORDS SUMMARY | 2021-12-06 00:30 | XMS_ITS | Encounter Summary ---
:1960 Author Organization [facility] Address [address] [place] [address] Care Team Providers Name Role Phone Kayley Swan GARAGE DOOR TECHNICIAN Primary Care Provider Encounter Details Date Type Department Care Team Description 01/12/2004 Results Only [facility] - Diana Driscoll, Chr istopher, conversion DO [address] [facility] [address] [facility] [address] [place], [place] [address] [place] [phone] (Wo rk) Social History Tobacco Use Types Packs/Day Years Used Date Never Assessed Sex Assigned at Date Recorded Not on file documented as of this encounter Plan of Treatment Not on filedocumented as of this encounter Procedures Procedure Name Priority Date/Time Associated Diagnosis Comme nts SURGICAL PATHOLOGY Routine 01/12/2004 0:00 EDT Re sults for this procedure are i n the results section. documented in this encounter Results SURGICAL PATHOLOGY (01/12/2004 0:00 EDT) Pathology Report: SURGICAL PATHOLOGY REPORT [facility] Reports generated via electronic interface contain fabienne ginal data; LAB however they are lacking the format of the original re port. Caution should be taken when reading/interpreting unfo rmatted reports. Name: ? PINKY FLOR ? Accession #: ? [id number] ? : ? 1960 (Age: 43) ??F ? Collect Date: ? 01/12/2004 ? Location: ? [facility] ? Receive Date: ? 004 ? Provider: JOSELYN DRISCOLL DO Copy to: FRANCOIS HURD MD ? Final Pathologic Diagnosis: A. ?Colon, ascending, biopsy: 1. ?Colonic mucosa with no significant pa thologic features. 2. ?No active or chronic colitis identifi ed. 3. ?No evidence of lymphocytic or collage nous colitis. B. ?Colon, transverse, biopsy: 1. ?Colonic mucosa with no significant pa thologic features. 2. ?No active or chronic colitis identifi ed. 3. ?No evidence of lymphocytic or collage nous colitis. C. ?Colon, sigmoid, biopsy: 1. ?Colonic mucosa with no significant pa thologic features. 2. ?No active or chronic colitis identifi ed. 3. ?No evidence of lymphocytic or collage nous colitis. D. ?Rectum, biopsy: 1. ?Scant super ficial colonic mucosa and vegetable matter insufficient for further diagnosis. E. ?Stomach, antrum, biopsy: 1. ?Gastric fun dic mucosa with no significant pathologic features. 2. ?No active or chronic gastritis is spenser ntified. 3. ?No Helicobacter pylori-like microorga nisms identified on H&E-stained sections. F. ?Esophagus, distal, biopsy: 1. ?Squamous mu cosa with rare intraepithelial eosinophils consistent with reflux esophagitis. Document reviewed and electronically signed by: LEIDA ODONNELL MD Report ??Date: 01/17/2004 15:51 By the signature above, the attending physician certif ies that he/she has personally conducted a gross and/or microscopic examin ation of the described specimens and rendered or confirmed the above diagnosi s. Specimen(s) Received: A. ?Bx ascending colon B. ?Bx transverse colon C. ?Bx sigmoid D. ?Bx rectum E. ?Antrum F. ?Distal esophagus ? Clinical History: ? Not listed Gross Description: ? Received in [place]'s fixative labeled Claudia and #1 bx ascending colon is a single fragment of soft tissue measuring 0 .7 x 0.2 x 0.1 cm. Submitted intact as (A). ?? Received in [place]'s fixat pey[place] labeled Claudia and #2 transverse colon bx is a single fragment of soft ti ssue measuring 0.7 x 0.2 x 0.1 cm. ??Submitted intact as (B). ?? Received in [place]e's fixative labeled Claudia and bx sigmoid is a single fragment of soft tissue evelia uring 0.4 x 0.2 x 0.1 cm. ??Submitted intact as (C). Received in [place]e's fixative labeled Claudia and #4 bx rectum is a very scant portion of tissue whic h, following filtration, measures less than 0.05 cm. Submitted as (D). Received in [place]e's fixative labeled Claudia and bx antrum is a single fragment of tissue measuring 0.5 x 0.2 x 0.1 cm. ??Sub mitted intact as (E). Received in [place]e's fixat peyton labeled Claudia and #6 distal esophagus is a single fragment of tissue measuring 0.3 x 0.2 x 0.1 cm. ??Submitted intact as (F). (Octavio Cheatham)/[facility] End of Report Specimen Performing Organization Address City/State/ZIP Code Phon e Number [facility] [address] [place] [address] SERVICES [facility] [address] [place] [address] documented in this encounter Visit Diagnoses Not on filedocumented in this encounter Care Teams Judicial Registrar Relationship Specialty Start Date End Date Kayley Swan, GARAGE DOOR TECHNICIAN PCP - General 11/29/[address] [place] [phone] documented as of this encounter
--- OUTSIDE RECORDS SUMMARY | 2021-12-06 00:30 | XMS_ITS | Encounter Summary ---
:1960 Author Organization [facility] [address] Care Team Providers Name Role Phone Everett Ramirez ALEXEI Primary Care Provider Reason for Visit Reason Comments Establish Care NXR-RIGHT WRIST PAIN-DOI- Consultation (Routine) - Closed Specialty Diagnoses / Procedures Referred By Contact Refer red To Contact Orthopaedics Diagnoses RIGHT WRIST PAIN Matthew Womack MD [facility] [address] [place] [id number] Referral ID Status Reason Start Date Expiration Date Visits V isits Requested Authorized [id number] Closed Consult, Test 08/08/2020 08/08/2021 [facility] PCP Updated and/or Approved Encounter Details Date Type Department Care Team Description 09/04/2020 Office Visit Orthopaedics at [facility] [place], Pain in right wrist [facility] Judson Olson Jr., [place] [address] ORTHOPAEDIC SURGERY [place], [place] [address] Social History Tobacco Use Types Packs/Day Years Used Date Former Smoker Smokeless Tobacco: Never Used Comments: Pt states when she was 26 for 1 year 1/2 Alcohol Use Standard Drinks/Week Comments Never 0 (1 standard drink = 0.6 oz pure alcoho l) Alcohol Habits Answer Date Recorded How often do you have a drink containing alcohol? Never 09/04/2020 How many drinks containing alcohol do you have on a typical Not asked day when you are drinking? How often do you have six or more drinks on one occasion? No t asked Comment: Not asked Sex Assigned at Date Recorded Not on file documented as of this encounter Last Filed Vital Signs Vital Sign Reading Time Taken Comments Blood Pressure 134/76 09/04/2020 9:24 AM EDT Pulse - - Temperature - - Respiratory Rate - - Oxygen Saturation - - Inhaled Oxygen Concentration - - Weight 71.2 kg (157 lb) 09/04/2020 9:24 AM EDT Height 157.5 cm (5' 2) 09/04/2020 9:24 AM EDT Body Mass Index 28.72 09/04/2020 9:24 AM EDT documented in this encounter Progress Notes Radha Grnat MD - 09/04/2020 9:30 AM EDT Pinky Taylor 1960 [id number] 09/04/2020 HPI: Pinky is 60 y.o. right hand dominant white diabetic female, who presents for evaluation of ulnarsided right wrist pain. The onset of symptoms was on 06/01/20, patient's daughter twisted her forearm.The pain is localized to the ulnar side of her forearm to hand. The patient notes no neurosensory symptoms. There is constant through the night and day, exacerbated with turning the dial in the dryer. Patient states some numbness of the right small, ring, long and index finger at times. Her historicalconnection between symptoms and activity is vague. Patient states she is allergic to celebrex and NSAIDs, gets bad reflux and has a history of a Nissenfundoplication. Takes tylenol in the way of medication, which does not help much with symptoms. Specific treatment and/or therapy to date include splinting. History reviewed. No pertinent past medical history. History reviewed. No pertinent surgical history. History reviewed. No pertinent family history. Social History Socioeconomic History ??? Marital status: Spouse name: Not on file ??? Number of children: Not on file ??? Years of education: Not on file ??? Highest education level: Not on file Occupational History ??? Not on file Tobacco Use ??? Smoking status: Former Smoker ??? Smokeless tobacco: Never Used ??? Tobacco comment: Pt states when she was 26 for 1 year 1/2 Substance and Sexual Activity ??? Alcohol use: Never ??? Drug use: Never ??? Sexual activity: Not on file Other Topics Concern ??? Not on file Social History Narrative ??? Not on file Social Determinants of Health Financial Resource Strain: ??? Difficulty of Paying Living Expenses: Food Insecurity: ??? Worried About Running Out of Food in the Last Year: ??? Ran Out of Food in the Last Year: Transportation Needs: ??? Lack of Transportation (Medical): ??? Lack of Transportation (Non-Medical): Physical Activity: ??? Days of Exercise per Week: ??? Minutes of Exercise per Session: Stress: ??? Feeling of Stress : Social Connections: ??? Frequency of Communication with Friends and Family: ??? Frequency of Social Gatherings with Friends and Family: ??? Attends Hindu Services: ??? Active Member of Clubs or Organizations: ??? Attends Club or Organization Meetings: ??? Marital Status: Intimate Partner Violence: ??? Fear of Current or Ex-Partner: ??? Emotionally Abused: ??? Physically Abused: ??? Sexually Abused: Review of Systems General: Negative Skin: Negative Eyes: Negative Cardiac: Negative Respiratory: Negative GI: Negative : Negative Musculoskeletal: Negative other than related to the chief complaint. Neurological: Negative Meds: Current Outpatient Medications on File Prior to Visit Medication Sig Dispense Refill ??? acetaminophen (TYLENOL) 650 mg Tablet Sustained Release Take by mouth. ??? benzonatate (Tessalon) 100 mg Capsule TAKE 1 CAPSULE BY MOUTH EVERY 8 HOURS NEEDED FOR COUGH ??? InternetArrayuch Ultra Blue Test Strip Strip USE TO TEST ONCE DAILY ??? Calcium Carbonate-Vitamin D3 500 mg(1,250mg) -400 unit Tablet Take 2 tablets by mouth. ??? docusate sodium (Colace) 100 mg Capsule Every 12 hours. ??? DOK 100 mg Capsule TAKE 1 CAPSULE BY MOUTH TWICE A DAY NEEDED ??? Relpax 40 mg Tablet TAKE 1 TABLET AT ONSET OF HEADACHE IF NO RELIEF MAY REPEAT 1 TABLET AFTER ATLEAST 2 HOURS. MAX 2 TABLETS IN 24 HOURS ??? Aimovig Autoinjector 140 mg/mL Auto-Injector INJECT 1ML UNDER THE SKIN EVERY MONTH ??? erenumab-aooe 70 mg/mL Auto-Injector by NOT APPLICABLE route. ??? esomeprazole (NexIUM) 40 mg Capsule, Delayed Release(E.C.) TAKE ONE CAPSULE BY MOUTH EVERY DAY ??? fexofenadine (WILD) 180 mg Tablet TAKE ONE TABLET BY MOUTH EVERY DAY ??? fluticasone propion-salmeteroL (ADVAIR HFA) 230-21 mcg/actuation HFA Aerosol Inhaler Every 12 hours. ??? fluticasone propionate (Flonase Allergy Relief) 50 mcg/actuation [place], Suspension Every 12 hours. ??? gabapentin (NEURONTIN) 600 mg Tablet TAKE ONE TABLET BY MOUTH THREE TIMES A DAY NO ABRUPT CESSATION. STOP LYRICA PREGABALIN ??? glyBURIDE (Diabeta) 5 mg Tablet TAKE ONE TABLET BY MOUTH EVERY DAY ??? hydrOXYzine (VISTARIL) 25 mg Capsule TAKE ONE CAPSULE BY MOUTH FOUR TIMES A DAY NEEDED FOR ITCHING TREMOR ANXIETY OR HEADACHE ??? OneTouch Delica Plus Lancet 30 gauge Misc USE TO TEST ONCE DAY ??? levalbuteroL (Xopenex HFA) 45 mcg/actuation HFA Aerosol Inhaler Every 6 hours. ??? lansoprazole (PREVACID) 30 mg Capsule, Delayed Release(E.C.) Daily. ??? lidocaine (XYLOCAINE) 5 % Ointment lidocaine 5 % topical ointment APPLY TO AFFECTED AREA(S) BY TOPICAL ROUTE 1-4 TIMES DAILY NEEDED ??? loperamide (IMODIUM A-D) 2 mg Tablet Take by mouth. ??? LORazepam (Ativan) 1 mg Tablet TAKE ONE TABLET BY MOUTH THREE TIMES A DAY NEEDED FOR ANXIETY TRY REALLY HARD NOT TO TAKE THIS MEDICATION ??? meclizine (Antivert) 25 mg Tablet Every 12 hours. ??? metroNIDAZOLE (METROCREAM) 0.75 % Cream Apply topically. ??? montelukast (Singulair) 10 mg Tablet TAKE ONE TABLET BY MOUTH EVERY DAY ??? nystatin (MYCOSTATIN) Powder APPLY TO AFFECTED AREA S UNDER BOTH BREASTS THREE TIMES A DAY ??? omeprazole (PriLOSEC) 40 mg Capsule, Delayed Release(E.C.) Daily. ??? polyethylene glycoL (Miralax) 17 gram Powder in Packet 17 g Daily. ??? simvastatin (Zocor) 20 mg Tablet TAKE ONE TABLET BY MOUTH AT BEDTIME ??? Carafate 100 mg/mL Suspension TAKE 10MLS BY MOUTH 4 TIMES A DAY BEFORE MEALS AND AT BEDTIME ??? valACYclovir (Valtrex) 500 mg Tablet Valtrex 500 mg tablet TAKE 1 TABLET (500 MG) BY ORAL ROUTE EVERY 12 HRS X3DAYS, START AT FIRST SING OF OUTBREAK No current facility-administered medications on file prior to visit. Physical Exam: Blood pressure 134/76, height 157.5 cm (5' 2), weight 71.2 kg (157 lb). Patient is well-appearing, alert and oriented. She speaks rapidly. Breathing is comfortably at rest. Ambulates with normal gait. Range of motion Remainder upper limbs with normal ROM bilaterally. No thenar atrophy or softening. No palmar crepitus or flexor tenosynovitis. Pain to palpation at ulnar side of hand, wrist and forearm is poorly localized. There are no local areas of pain and patient has hard time putting one finger on one spot localizingpain. Ulnocarpal abutment maneuvers produce no pain. DRUJ stable. Radial and ulnar compression elicits no pain. No midcarpal laxity or pain. No visible ECU subluxation. ECU sheath nontender. Crank test RIGHT positive; Grind test RIGHT negative. Wrist flexion test negative. Tinel's at right wrist negative. Negative ulnar nerve test tinel's sign at elbow Motor strength 5/5 bilateral to manual resistance testing. Sensation intact bilateral to light touch. Imaging: Right wrist Xray: ulnar negative variance without notable degenerative changes. Active Problem List: Patient Active Problem List Diagnosis Code ??? Reflux [id number] Assessment: 60yo RHD F presents with ulnar sided hand, wrist, and forearm pain, with no clear localizing findings - likely soft tissue sprain. Plan: The nature of the problem and the individual situation was discussed at length with the patient. Consistent with treatment of the primary diagnosis, we have recommended Wrist flexion and extension PREs with bag of rice, up to 2 lbs. Follow up in 1-2 months for re-evaluation of symptoms if persistent. Radha Grant MD/MHS PGY2 Plastic and Reconstructive Surgery [facility] I have seen and examined the above named patient, reviewed and edited the contents of the note supplied by the resident or physician graphic art technician with whom I saw the patient, and reviewed our findings andrecommendations with the patient in person. Judson Knowles Jr, MD Department of Orthopaedics [facility] documented in this encounter Plan of Treatment Not on filedocumented as of this encounter Visit Diagnoses Diagnosis Pain in right wrist Pain in joint, forearm documented in this encounter Care Teams Health Unit Coordinator Relationship Specialty Start Date End Date Everett Ramirez APRN PCP - General Family Medicine 08/16/20 [address] [place] [address] documented as of this encounter
--- OUTSIDE RECORDS SUMMARY | 2021-12-06 00:30 | XMS_ITS | Encounter Summary ---
:1960 Author Organization [facility] Address [address] [place] [address] Care Team Providers Name Role Phone Kayley Swan ELECTRONIC EQUIPMENT REPAIRMEN Primary Care Provider Encounter Details Date Type Department Care Team Description 06/10/2010 Results Only [facility] Marques Astorga MD Laboratory Services - [address] [place] [address] [address] [place], [place] [phone] (Wo rk) Social History Tobacco Use Types Packs/Day Years Used Date Never Assessed Sex Assigned at Date Recorded Not on file documented as of this encounter Plan of Treatment Not on filedocumented as of this encounter Procedures Procedure Name Priority Date/Time Associated Diagnosis Comme nts CYTOPATHOLOGY Routine 06/10/2010 0:00 EST Results for this procedure are i n the results section. SURGICAL PATHOLOGY Routine 06/10/2010 0:00 EST Re sults for this procedure are i n the results section. documented in this encounter Results SURGICAL PATHOLOGY (06/10/2010 0:00 EST) Pathology SURGICAL PATHOLOGY REPORT ? [facility] Report: Reports generated via electr [employer] interface contain original data; ? LAB however they are lacking the format of the original report. ? Caution should be taken when reading/interpreting unformatted reports. ? Name: ? BASIA, SANGITA Meléndez ? Accession #: ? [id number] ? : ? 1960 (Age: 50) ??F ? Collec t Date: ? 06/10/2010 ? Location: ? [facility] ? R eceive Date: ? 06/11/2010 ? Provider: SHANTE ASTORGA MD ? Copy to: ADRIENNE ROBLERO ELECTRONIC EQUIPMENT REPAIRMEN ? Final Pathologic Diagnosis: ? Endometrium, biopsy: ? 1. ?Inactive en dometrium with pseudodecidualized stroma and extensive ?? breakdown suggestive of exog enous hormone effect. ??See comment. ? 2. ? Mild chronic endome tritis. ? Comment: ? Hr Intern sectio ns of this case have been reviewed at ? intradepartmental consultati on conference. ? Focal stromal plasma cells are identified. ?? (Dr. Charles)/mpl ? Document reviewed and electr onically signed by: ? LEIDA J BUTNOR MD ? Report ??Date: 06/12/2010 15 :15 ? By the signature above, the attending physician certifies that he/she has ? personally conducted a gross and/or microscopic examination of the described ? specimens and rendered or co nfirmed the above diagnosis. ? Specimen(s) Received: ? Endometrial biopsy ? Clinical History: ? Perimenopausal; DUB ? Gross Description: ? Received in formalin labelled Basia, Sangita and endometrium is 2.0 x 1.5 x 0.5 cm of red-brown, hemor rhagic tissue fragments. ??The specimen is entirely ?? submitted in one cassette fo llowing filtration. ??(Clarissa Mejia)/latonian ? End of Report ? Specimen Performing Organization Address City/State/ZIP Code Phon e Number [facility] [address] [place] [address] SERVICES [facility] [address] [place] [address] CYTOPATHOLOGY (06/10/2010 0:00 EST) Pathology Report: CYTOPATHOLOGY REPORT ? [facility] ? LAB Reports generated via electr [employer] interface contain original data; ? however they are lacking the format of the original report. ? Caution should be taken when reading/interpreting unformatted reports. ? Name: ? SANGITA FLOR ? Accession #: ? [id number] ? : ? 1960 (Age: 50) ??F ?Collect Date: ? 06/10/2010 ? Location: ? [facility] ? Receive Date: ? 06/11/2010 ? Provider: ?GAILYN B T HOMAS MD ? Copy to: ? Specimen/Source: ? Pap Test, Cervix/Endocervix, ThinPrep Imaging System ? with manual evaluation ? Last Menstrual Period: ? 01/08/11 ? SPECIMEN ADEQUACY ? Satisfactory for Eval uation ? - transformation zone compon ent present ? - scant squamous epithelial component ? GENERAL CATEGORIZATION ? Negative for Intraepi thelial Lesion or Malignancy ? Document reviewed and electr onically signed by: ? Tyler N. Colton, [place] (ASCP) ? Report Date: ??01/13/ 2011 11:12 ? End of Report ? Specimen Performing Organization Address City/State/[facility] Code Phon e Number [facility] [address] [place] [address] SERVICES [facility] [address] [place] [address] documented in this encounter Visit Diagnoses Not on filedocumented in this encounter Care Teams Printed Circuit Boards Router Relationship Specialty Start Date End Date Kayley Swan NP PCP - General 11/29/08 [address] [facility] [address] [place] [phone] documented as of this encounter
--- OUTSIDE RECORDS SUMMARY | 2021-12-06 00:30 | XMS_ITS | Clinical Summary ---
:1960 Author Organization [facility] [place] [address] Care Team Providers Name Role Phone Everett Ramirez ALEXEI Primary Care Provider Allergies Active Allergy Reactions Severity Noted Date Comments Amoxicillin 06/05/2020 Aspirin Medium 06/05/2020 Other reaction( s): IT PATTERSON MY STOMAC H Carbidopa Medium 06/05/2020 Other reaction( s): vomiting Ciprofloxacin 06/05/2020 Clonazepam Medium 06/05/2020 Other reaction( s): I CAN'T BREATHE T OO GOOD Dicyclomine High 09/04/2020 Other reaction( s): Confusion Doxycycline 06/05/2020 Duloxetine Medium 06/05/2020 Other reaction( s): suicidal ideati on Fluoxetine Medium 06/05/2020 Other reaction( s): Skin Rash Latex Medium 06/05/2020 Other reaction( s): Skin Rash Meloxicam 09/04/2020 Paroxetine Hcl High 06/05/2020 Other reactio n(s): chest pain Peanut High 06/05/2020 Other reaction( s): feels like I am going to choke Penicillins High 06/05/2020 Pregabalin 06/05/2020 Other reaction( s): unknown Risperidone 06/05/2020 Other reaction( s): unknown Sertraline High 06/05/2020 Sulfa (Sulfonamide Medium 06/05/2020 Other kevin ction(s): I Antibiotics) CAN'T BREATHE G OOD, IT PATTERSON ME, unkn own Sulfamethoxazole-Trimethoprim 09/04/2020 Trazodone 09/04/2020 Trimethoprim 06/05/2020 Other reaction( s): unknown Venlafaxine 06/05/2020 Other reaction( s): unknown Medications Medication Sig Dispensed Refills Start Date End Date Status acetaminophen Take by mouth. 0 01/17/2020 Active (TYLENOL) 650 mg Tablet Sustained Release benzonatate (Tessalon) TAKE 1 CAPSULE BY 0 1 Active 100 mg Capsule MOUTH EVERY 8 HOURS NEEDED FOR COUGH OneTouch Ultra Blue USE TO TEST ONCE 0 07/14/2020 Active Test Strip Strip DAILY Calcium Take 2 tablets by 0 05/03/2020 A ctive Carbonate-Vitamin D3 mouth. 500 mg(1,250mg) -400 unit Tablet docusate sodium Every 12 hours. 0 04/09/2017 Active (Colace) 100 mg Capsule DOK 100 mg Capsule TAKE 1 CAPSULE BY 0 07/25/2020 Active MOUTH TWICE A DAY NEEDED Relpax 40 mg Tablet TAKE 1 TABLET AT 0 08/24/2020 Active ONSET OF HEADACHE IF NO RELIEF MAY REPEAT 1 TABLET AFTER AT LEAST 2 HOURS. MAX 2 TABLETS IN 24 HOURS Aimovig Autoinjector INJECT 1ML UNDER 0 07/18/2020 Active 140 mg/mL THE SKIN EVERY Auto-Injector MONTH erenumab-aooe 70 mg/mL by NOT APPLICABLE 0 0 Active Auto-Injector route. esomeprazole (NexIUM) TAKE ONE CAPSULE 0 05/01/2020 Active 40 mg Capsule, Delayed BY MOUTH EVERY DAY Release(E.C.) fexofenadine (WILD) TAKE ONE TABLET BY 0 08/11/19 21 Active 180 mg Tablet MOUTH EVERY DAY fluticasone Every 12 hours. 0 Ac tive propion-salmeteroL (ADVAIR HFA) 230-21 mcg/actuation HFA Aerosol Inhaler fluticasone propionate Every 12 hours. 0 02/13/2020 Active (Flonase Allergy Relief) 50 mcg/actuation [place], Suspension gabapentin (NEURONTIN) TAKE ONE TABLET BY 0 08/17/19 21 Active 600 mg Tablet MOUTH THREE TIMES A DAY NO ABRUPT CESSATION. STOP LYRICA PREGABALIN glyBURIDE (Diabeta) 5 TAKE ONE TABLET BY 0 1 Active mg Tablet MOUTH EVERY DAY hydrOXYzine (VISTARIL) TAKE ONE CAPSULE 0 07/28/2020 Active 25 mg Capsule BY MOUTH FOUR TIMES A DAY NEEDED FOR ITCHING TREMOR ANXIETY OR HEADACHE OneTouch Delica Plus USE TO TEST ONCE 0 05/26/2020 Active Lancet 30 gauge Misc DAY levalbuteroL (Xopenex Every 6 hours. 0 10/29/2012 Active HFA) 45 mcg/actuation HFA Aerosol Inhaler lansoprazole Daily. 0 Active (PREVACID) 30 mg Capsule, Delayed Release(E.C.) lidocaine (XYLOCAINE) lidocaine 5 % topical ointment 0 01/30/2020 Active 5 % Ointment APPLY TO AFFECTED AREA(S) B Y TOPICAL ROUTE 1-4 TIMES DAILY NEEDED loperamide (IMODIUM Take by mouth. 0 10/29/2012 Active A-D) 2 mg Tablet LORazepam (Ativan) 1 TAKE ONE TABLET BY 0 07/28/2020 Active mg Tablet MOUTH THREE TIMES A DAY NEEDED FOR ANXIETY TRY REALLY HARD NOT TO TAKE THIS MEDICATION meclizine (Antivert) Every 12 hours. 0 02/09/2016 Active 25 mg Tablet metroNIDAZOLE Apply topically. 0 01/30/2020 Active (METROCREAM) 0.75 % Cream montelukast TAKE ONE TABLET BY 0 07/10/2020 Active (Singulair) 10 mg MOUTH EVERY DAY Tablet nystatin (MYCOSTATIN) APPLY TO AFFECTED 0 08/16/2020 Active Powder AREA S UNDER BOTH BREASTS THREE TIMES A DAY omeprazole (PriLOSEC) Daily. 0 Active 40 mg Capsule, Delayed Release(E.C.) polyethylene glycoL 17 g Daily. 0 Active (Miralax) 17 gram Powder in Packet simvastatin (Zocor) 20 TAKE ONE TABLET BY 0 08/27/19 21 Active mg Tablet MOUTH AT BEDTIME Carafate 100 mg/mL TAKE 10MLS BY 0 08/23/2020 Active Suspension MOUTH 4 TIMES A DAY BEFORE MEALS AND AT BEDTIME valACYclovir (Valtrex) Valtrex 500 mg tablet 0 Active 500 mg Tablet TAKE 1 TABLET (500 MG) BY O RAL ROUTE EVERY 12 HRS X3DAYS, START AT FIRST SING OF OUTBREAK Active Problems Problem Noted Date Reflux 02/04/2011 Social History Tobacco Use Types Packs/Day Years [...] Assigned at Date Recorded Not on file Last Filed Vital Signs Vital Sign Reading Time Taken Comments Blood Pressure 134/76 09/04/2020 9:24 AM EDT Pulse - - Temperature - - Respiratory Rate - - Oxygen Saturation - - Inhaled Oxygen Concentration - - Weight 71.2 kg (157 lb) 09/04/2020 9:24 AM EDT Height 157.5 cm (5' 2) 09/04/2020 9:24 AM EDT Body Mass Index 28.72 09/04/2020 9:24 AM EDT Plan of Treatment Health Maintenance Due Date Last Done Comments Covid-19 Vaccine (#1) 01/16/1964 HIV screen 1977 Hepatitis C Screening 1977 Tdap adult 1978 Tetanus vaccine 1978 HPV test 1989 PAP Smear 1989 Breast Cancer Share Decision Needed 1999 Diabetes Screening (HgbA1C or Glucose) 1999 Colonoscopy 01/16/2004 Breast Cancer screening 2009 Zoster vaccine (1 of 2) 2009 Advance Directive 2014 Influenza (Flu) vaccine (1 of 1 - Influenza standard 01/30/2022 series) Insurance Payer Benefit Plan / Subscriber ID Effective Dates Phone Addre ss [place] [id number] 2019-Prese [phone] [address] [facility] [place], [place] [id number] Care Teams Watch Case Polisher Relationship Specialty Start Date End Date Everett Ramirez APRN PCP - General Family Medicine 08/16/20 [address] [place], [place] [id number] (work)
--- OUTSIDE RECORDS SUMMARY | 2021-12-06 00:30 | XMS_ITS | Encounter Summary ---
:1960 Author Organization [facility] [place] [address] Care Team Providers Name Role Phone Kayley Swan APRN Primary Care Provider Encounter Details Date Type Department Care Team Description 06/26/2020 Ancillary Procedure Radiology Library at Germán Proctor MD [facility] [place] [address] [place] [address] [phone] (Wo rk) Social History Tobacco Use Types Packs/Day Years Used Date Never Assessed Sex Assigned at Date Recorded Not on file documented as of this encounter Plan of Treatment Not on filedocumented as of this encounter Procedures Procedure Name Priority Date/Time Associated Diagnosis Comme nts FILM LIBRARY Routine 06/26/2020 12:00 AM Results for this STORAGE ONLY DX EST procedure ar e in WRIST the results section. documented in this encounter Results Film Library- Storage Only DX Wrist (06/26/2020 12:00 AM EST) Specimen (Source) Anatomical Location Collection Method / Collectio n Time Received Time / Laterality Volume Narrative NETTA - 08/09/2020 2:54 PM EST This exam is auto-finalizing. It's purpo se is for storage only. Matt Proctor MD IMG FILM LIBRARY ORDERABLES Performing Organization Address City/State/ZIP Code Phon e Number [facility] [place], [place] documented in this encounter Visit Diagnoses Not on filedocumented in this encounter Care Teams Heavy Equipment Rental Manager Relationship Specialty Start Date End Date Kayley Swan, CONTESTANT COORDINATOR PCP - General 06/17/10 08/15/20 [address] [place] [address] documented as of this encounter
--- OUTSIDE RECORDS SUMMARY | 2021-12-06 00:30 | XMS_ITS | Encounter Summary ---
:1960 Author Organization [facility] Address [address] [place] [address] Care Team Providers Name Role Phone Kayley Swan PRODUCT DELIVERY SPECIALIST Primary Care Provider Encounter Details Date Type Department Care Team Description 03/19/2021 Lab Requisition [facility] Outr Resulting Lab, Pathology & Laboratory Provider [facility] [address] [place], [place] [address] Social History Tobacco Use Types Packs/Day Years Used Date Never Assessed Sex Assigned at Date Recorded Not on file documented as of this encounter Plan of Treatment Not on filedocumented as of this encounter Procedures Procedure Name Priority Date/Time Associated Comments Diagnosis HIV 1/2 ANTIGEN AND Routine 03/19/2021 11:08 Resu lts for this ANTIBODY, 4TH EDT procedure are in GENERATION the results section. documented in this encounter Results HIV 1/2 ANTIGEN AND ANTIBODY, 4TH GENERATION (03/19/2021 11:08 EDT) HIV 1 and 2 Negative Negative [facility] Antibody/p24 Comment: LABORATORY Antigen, 4th If acute HIV-1 infection is suspected in a high risk ??patient, submit plasma specimen for HIV-1 RNA quantitation test. SERV ICES Generation Fourth Generation assay performed on the Siemens Rapleafa ur. Specimen Blood - Venous blood (substance) Performing Organization Address City/State/ZIP Code Phon e Number [facility] [address] [place] [address] SERVICES documented in this encounter Visit Diagnoses Not on filedocumented in this encounter Care Teams Bolting Machine Operator Relationship Specialty Start Date End Date Kayley Swan, PRODUCT DELIVERY SPECIALIST PCP - General 11/29/[address] [place] [phone] documented as of this encounter
--- OUTSIDE RECORDS SUMMARY | 2021-12-06 00:30 | XMS_ITS | Encounter Summary ---
:1960 Author Organization [facility] Address [address] [place] [address] Care Team Providers Name Role Phone Kayley Swan Vipul CLINICAL PHARMACY TECHNICIAN Primary Care Provider Encounter Details Date Type Department Care Team Description 02/07/2008 Before [facility] - Gill Giron, Converted Visit Diana ferrari MD (Mapespinoza) 111 [facility] [address] [place], [place] [address] [place] [phone] (Wo rk) Social History Tobacco Use Types Packs/Day Years Used Date Never Assessed Sex Assigned at Date Recorded Not on file documented as of this encounter Plan of Treatment Not on filedocumented as of this encounter Procedures Procedure Name Priority Date/Time Associated Diagnosis Comme [facility] SURGICAL PATHOLOGY Routine 02/07/2008 0:00 EDT Re sults for this procedure are i n the results section. documented in this encounter Results SURGICAL PATHOLOGY (02/07/2008 0:00 EDT) Pathologist [facility] Pathology SURGICAL PATHOLOGY REPORT ? [facility] Report: Reports generated via [employer] interface contain original data; ? LAB however they are lacking the format of the original report. ? Caution should be taken when reading/interpreting unformatted reports. ? Name: ? CLAUDIA, PINKY A ? Accession #: ? [id number] ? : ? 1960 (Age: 48) ??F ? Collec t Date: ? 02/07/2008 ? Location: ? [facility] ? R eceive Date: ? 02/07/2008 ? Provider: GILL EWINGELSON MD ? Copy to: ADRIENNE ROBLERO CLINICAL PHARMACY TECHNICIAN ? Final Pathologic Diagnosis: ? Esophagus, 35 cm, bio psies: ? 1. ?Squamous an d fundic-type mucosa with reactive changes. ? 2. ?No goblet c ell intestinal metaplasia identified. ? 3. ? Immunostaining for Helicobacter pylori is negative. ??See comment. ? Comment: ? Immunohistochemical s taining for H. pylori (polyclonal, [facility]) ??has ?? been performed on (A1). ??Po sitive and negative controls stain appropriately. ? (Dr. Marina)/latonian ? NOTE: ??One or more of the reagents used in immunohistochemical testing in this case may not have been clear ed or approved by the U.S. Food and Drug ? Administration (FDA). ??The FDA has determined that such clearance or approval is not necessary. ??These tests are used for clinical purposes. ??They should not be regarded as investigational or for research. ??These reagents' ??performance ? characteristics have been de termined by [facility]. ??This ? laboratory is certified unde r the Clinical Laboratory Improvement Amendments of 1988 (CLIA-88) as qualified to perform high complexity clinical laboratory ? testing. ? Document reviewed and electr onically signed by: ? Isa Acuna MD ? Report ??Date: 02/10/2008 16 :02 ? By the signature above, the attending physician certifies that he/she has ? personally conducted a gross and/or microscopic examination of the described ? specimens and rendered or co nfirmed the above diagnosis. ? Specimen(s) Received: ? Bx esophagus 35 cm ? Clinical History: ? GERD, rectal bleeding ? Gross Description: ? Received in Moni' s fixative labelled Claudia and biopsy esophagus 35 cm are four tissues ranging from 0.3 x 0.1 x 0.1 cm to 0.3 x 0.2 x 0.2 cm. ? Entirely submitted labelled (A1) and (A2). ??(Dr. Rosado)/juliocesark ? End of Report ? Specimen Performing Organization Address City/State/ZIP Code Phon e Number [facility] [address] [place] [address] SERVICES [facility] [address] [place] [address] documented in this encounter Visit Diagnoses Not on filedocumented in this encounter Care Teams Humane Agent Relationship Specialty Start Date End Date Kayley Swan, WOO PCP - General 11/29/08 185 [facility] 1 [place] [address] documented as of this encounter
--- OUTSIDE RECORDS SUMMARY | 2021-12-06 00:30 | XMS_ITS | Encounter Summary ---
:1960 Author Organization [facility] Address [address] [place] [address] Care Team Providers Name Role Phone Kayley Swan DIRECTOR TRANSLATIONAL Primary Care Provider Encounter Details Date Type Department Care Team Description 09/15/2002 Results Only [facility] - Kayley aDy, DIRECTOR TRANSLATIONAL conversion 185 [facility] 1 [address] [place] [phone] (Wo rk) Social History Tobacco Use Types Packs/Day Years Used Date Never Assessed Sex Assigned at Date Recorded Not on file documented as of this encounter Plan of Treatment Not on filedocumented as of this encounter Procedures Procedure Name Priority Date/Time Associated Diagnosis Comme nts CYTOPATHOLOGY Routine 09/15/2002 0:00 EDT Results for this procedure are i n the results section . documented in this encounter Results CYTOPATHOLOGY (09/15/2002 0:00 EDT) Pathology Report: CYTOPATHOLOGY REPORT [facility] Reports generated via electronic interface contain fabienne ginal data; however they are lacking the format of the original re port. Caution should be taken when reading/interpreting unfo rmatted reports. Name: ? SANGITA FLOR ? Accession #: ? [id number] : ? 1960 (Age: 42) ??F ?Collect Date: ? 08/30 Location: ? [facility] ? Receive Date : ? 09/19/2002 Provider: ?KAYLEY SWAN DIRECTOR TRANSLATIONAL Copy to: ? Specimen/Source: ?ThinPrep Pap Test, Cervix/ Endocervix Last Menstrual Period: ? Hormonal/Contraceptive Status: ? Depo-Provera Other: ? HPVA - HPV testing requested if ASC-US on the current ThinPrep Pap test. ? SPECIMEN ADEQUACY ? Satisfactory for Evaluation - transformation zone component present - scant squamous epithelial component secondary to exc essive blood GENERAL CATEGORIZATION ? Negative for Intraepithelial Lesion or Malignan cy ? Document reviewed and electronically signed by: ? DAVID Evans(ASCP) ? Report Date: ??09/21/2002 14:23 End of Report Specimen Performing Organization Address City/State/ZIP Code Phon e Number [facility] [address] [place] [address] SERVICES [facility] [address] [place] [address] documented in this encounter Visit Diagnoses Not on filedocumented in this encounter Care Teams Ferryboat Captain Relationship Specialty Start Date End Date Kayley Swan NP PCP - General 11/29/[address] [place] [phone] documented as of this encounter
--- OUTSIDE RECORDS SUMMARY | 2021-12-06 00:30 | XMS_ITS | Encounter Summary ---
:1960 Author Organization [facility] Address [address] [place] [address] Care Team Providers Name Role Phone Kayley Swan WEBMASTER Primary Care Provider Encounter Details Date Type Department Care Team Description 09/13/2004 Results Only [facility] - Kayley Day, WEBMASTER conversion 185 [facility] 1 [address] [place] [phone] (Wo rk) Social History Tobacco Use Types Packs/Day Years Used Date Never Assessed Sex Assigned at Date Recorded Not on file documented as of this encounter Plan of Treatment Not on filedocumented as of this encounter Procedures Procedure Name Priority Date/Time Associated Diagnosis Comme nts CYTOPATHOLOGY Routine 09/13/2004 0:00 EDT Results for this procedure are i n the results section . documented in this encounter Results CYTOPATHOLOGY (09/13/2004 0:00 EDT) Pathology Report: CYTOPATHOLOGY REPORT [facility] Reports generated via electronic interface contain fabienne ginal data; however they are lacking the format of the original re port. Caution should be taken when reading/interpreting unfo rmatted reports. Name: ? SANGITA FLOR ? Accession #: ? [id number] : ? 1960 (Age: 44) ??F ?Collect Date: ? 08/30 Location: ? [facility] ? Receive Date : ? 09/17/2004 Provider: ?KAYLEY SWAN WEBMASTER Copy to: ? Specimen/Source: ?ThinPrep Pap Test, Cervix/ Endocervix Last Menstrual Period: ? SPECIMEN ADEQUACY ? Satisfactory for Evaluation - transformation zone component present - scant squamous epithelial component secondary to exc essive blood GENERAL CATEGORIZATION ? Negative for Intraepithelial Lesion or Malignan cy ? Document reviewed and electronically signed by: ? DAVID Smalls(ASCP) ? Report Date: ??09/23/2004 13:58 End of Report Specimen Performing Organization Address City/State/ZIP Code Phon e Number [facility] [address] [place] [address] SERVICES [facility] [address] [place] [address] documented in this encounter Visit Diagnoses Not on filedocumented in this encounter Care Teams Core Assembly Supervisor Relationship Specialty Start Date End Date Kayley Swan NP PCP - General 11/29/[address] [place] [phone] documented as of this encounter
--- OUTSIDE RECORDS SUMMARY | 2021-12-06 00:30 | XMS_ITS | Encounter Summary ---
:1960 Author Organization [facility] Address [address] [place] [address] Care Team Providers Name Role Phone Kayley Swan SALES PLANNING COORDINATOR Primary Care Provider Encounter Details Date Type Department Care Team Description 12/20/2020 Lab Requisition [facility] Outr Resulting Lab, Pathology & Laboratory Provider [facility] [address] [place], [place] [address] Social History Tobacco Use Types Packs/Day Years Used Date Never Assessed Sex Assigned at Date Recorded Not on file documented as of this encounter Plan of Treatment Not on filedocumented as of this encounter Procedures Procedure Name Priority Date/Time Associated Diagnosis Comme nts COVID-19 TEST [facility] Today 12/20/2020 13:08 LAB PCR EDT COVID-19 TESTING Routine 12/20/2020 13:08 Results for this EDT procedure are i n the results section. documented in this encounter Results COVID-19 TEST [facility] LAB PCR (12/20/2020 13:08 EDT) Specimen Swab - Entire nasopharynx (body structur e) Performing Organization Address City/State/ZIP Code Phon e Number [facility] [address] [place] [address] SERVICES COVID-19 TESTING (12/20/2020 13:08 EDT) COVID-19 rt-PCR Negative Negative [facility] Result Comment: CENTER LABORATORY This [...] performed using the arjun SARS-CoV-2 assay ([employer] on the Arjun 6800 System Performing Lab Arjun 6800 [facility] Lab [facility] SERVICES Specimen Swab Performing Organization Address City/State/ZIP Code Phon e Number [facility] [address] [place] [address] SERVICES documented in this encounter Visit Diagnoses Not on filedocumented in this encounter Care Teams Lathe Scalper Operator Relationship Specialty Start Date End Date Kayley Swan, WOO PCP - General 11/29/[address] [place] [phone] documented as of this encounter
--- OUTSIDE RECORDS SUMMARY | 2021-12-06 00:30 | XMS_ITS | Encounter Summary ---
:1960 Author Organization [facility] [place] [address] Care Team Providers Name Role Phone Kayley Swan APRN Primary Care Provider Encounter Details Date Type Department Care Team Description 06/30/2019 External Results Medical Records Provider, [place] [phone] Social History Tobacco Use Types Packs/Day Years Used Date Never Assessed Sex Assigned at Date Recorded Not on file documented as of this encounter Plan of Treatment Not on filedocumented as of this encounter Procedures Procedure Name Priority Date/Time Associated Diagnosis Comme nts SURGICAL PATHOLOGY Routine 06/30/2019 Results f or this SCAN procedure are i n the results section . documented in this encounter Results Scan Doc: Surgical Pathology (06/30/2019) Narrative This result has an attachment that is no t available. Historical Provider MD MEDIA MGR SCAN EXT ORDR/RSLT documented in this encounter Visit Diagnoses Not on filedocumented in this encounter Care Teams Senior Staff Specialized Employment Relationship Specialty Start Date End Date Kayley Swan APRN PCP - General 06/17/10 08/15/20 FRANNIE 1 [address] [place] [address] documented as of this encounter
--- OUTSIDE RECORDS SUMMARY | 2021-12-06 00:30 | XMS_ITS | Encounter Summary ---
:1960 Author Organization [facility] [place] [address] Care Team Providers Name Role Phone Kayley Swan ALEXEI Primary Care Provider Encounter Details Date Type Department Care Team Description 06/29/2019 Hospital [place] [phone] Social History Tobacco Use Types Packs/Day Years Used Date Never Assessed Sex Assigned at Date Recorded Not on file documented as of this encounter Medications at Time of Discharge Medication Sig Dispensed Refills Start Date End Date docusate sodium (Colace) 100 mg Every 12 hours. 0 04/09/2017 Capsule levalbuteroL (Xopenex HFA) 45 Every 6 hours. 0 mcg/actuation HFA Aerosol Inhaler loperamide (IMODIUM A-D) 2 mg Take by mouth. 0 Tablet meclizine (Antivert) 25 mg Every 12 hours. 0 01/30 Tablet documented as of this encounter Plan of Treatment Not on filedocumented as of this encounter Procedures Procedure Name Priority Date/Time Associated Diagnosis Comme nts SURGICAL PATHOLOGY Routine 06/29/2019 10:20 AM Re karen for this REPORT EST procedure are i n the results section. documented in this encounter Results Surgical Pathology Report (06/29/2019 10:20 AM EST) Component Value Ref Test Analysis Performed At [facility] Method Time Signature Surgical [id number] ? Location: NOEMI QUESADA Pathology [place] Report The signing pathologist has (i) examined the relevant preparation(s) for the [facility] specimen(s) and (ii) rendered or confirmed the diagnosis(es) . HOSPITAL LABOR[facility]ORY . ?Surgic al Pathology DIAGNOSIS A - Antrum biopsy: Reactive gastric antral and body-fundic mucosa. B - Distal esophagus biopsy: Small squamous papilloma. C - Proximal esophagus biopsy: Esophageal squamous mucosa within normal limits. Electronically signed by: ??Peyton DUNCAN PhD, Adrián Marks Verified: ??07/04/2019 ?Pathologist Performed at: ??-[facility] Dept. of Pathology, [place], [place] CLINICAL INFORMATION Specimen Submitted: A - Antrum bx B - Distal esophagus bx C - Proximal esophagus bx Clinical History and Diagnosis: GERD post Viet Referring Identifier: ?(not provided) SPECIMEN PROCESSING A - Labeled/Fixative: Antrum BX, formalin. Quantity/Size: Two, average 0.3 cm. Tissue Description: Soft, casillas-pink tissues. Sections/Processing: Submitted en toto ??in 1 cassette labeled A1. B - Labeled/Fixative: Distal esophagus BX, formalin. Quantity/Size: Two, average 0.1 cm. Tissue Description: Soft, pink-white tissues. Sections/Processing: Submitted en toto ??in 1 cassette labeled B1. C - Labeled/Fixative: Proximal esophagus, formalin. Quantity/Size: Single, 0.3 cm. Tissue Description: Soft, pink-white tissue. Sections/Processing: Submitted en toto ??in 1 cassette labeled C1. ??MLL Specimen (Source) Anatomical Collection Method Collection Time Re ceived Time Location / / Volume Laterality 06/29/2019 10:20 AM EST Solo Giron DO PATHOLOGY/CYTOLOGY ORDERABLE S Performing Organization Address City/State/ZIP Code [place] [address] [facility] [address] documented in this encounter Visit Diagnoses Not on filedocumented in this encounter Care Teams Transfer Driver Relationship Specialty Start Date End Date Kayley Swan, ALEXEI PCP - General 06/17/10 08/15/20 FRANNIE 1 [address] [place] [address] documented as of this encounter
--- OUTSIDE RECORDS SUMMARY | 2021-12-06 00:30 | XMS_ITS | Encounter Summary ---
:1960 Author Organization [facility] Address [address] [place] [address] Care Team Providers Name Role Phone Kayley Swan BLOCKERS SKIVER Primary Care Provider Encounter Details Date Type Department Care Team Description 02/15/2019 Results Only [facility]- Neri Zavaleta, DNP [phone] [address] [place] [phone] (Wo rk) Social History Tobacco Use Types Packs/Day Years Used Date Never Assessed Sex Assigned at Date Recorded Not on file documented as of this encounter Plan of Treatment Not on filedocumented as of this encounter Procedures Procedure Name Priority Date/Time Associated Diagnosis Comme nts PAP TEST- RESULT Routine 02/15/2019 0:00 EDT Resu lts for this ONLY procedure are i n the results section. documented in this encounter Results PAP TEST- RESULT ONLY (02/15/2019 0:00 EDT) Pathology Report: CYTOPATHOLOGY REPORT [facility] Reports generated via electronic interface contain fabienne ginal data; SERVICES however they are lacking the format of the original re port. Caution should be taken when reading/interpreting unfo rmatted reports. Name: ? SANGITA FLOR ? Accession #: ? [id number] ? : ? 1960 (Age: 5 0) ??F ?Collect Date: ? 02/15/2019 ? Location: ? [facility] ? Receive Date: ? 02/18/20 19 ? Provider: NERI MG DNP Copy to: ? Final Report SPECIMEN ADEQUACY ? Satisfactory for Evaluation - assessment of transformation zone component not appl icable ( e.g. atrophy, vaginal sample, hysterectomy) - scant squamous epithelial component GENERAL CATEGORIZATION ? Negative for Intraepithelial Lesion or Malignan cy ?? Other: Additional clinical information: Z00.00 Z12.4 Z 11.51 FAX - Request for Fax report: [phone] Specimen/Source: ??Pap Test, Cervix, ThinPrep Imaging System with manual evaluation Document reviewed and electronically signed by: ? Gretchen Robison, [facility](ASCP) ? Report ??Date: 02/18/2019 14:12 HPV with Pap Test ? Date Ordered: ? 02/18/2019 ? Status: ?? Signed Out ?Date Complete: ? 02/21/2019 ? By: ??Sy stem Interface ? Date Reported: ? 02/21/2019 ? Interpretation RESULT: Negative for HPV. No E6 or E7 mRNA is detected from HPV types 16,18,31,3 3,35, 39,45,51,52,56,58,59,66, and 68 by auto driver media justin amplification. Comments Document reviewed and electronically signed by: ? System Interface ? Report date: 02/21/2019 By the signature above, the attending physician certif ies that he/she has personally conducted a gross and/or microscopic examin ation of the described specimens and rendered or confirmed the above diagnosi s. End of Report Specimen Performing Organization Address City/State/[facility] Code Phon e Number [facility] [address] [place] [address] SERVICES documented in this encounter Visit Diagnoses Not on filedocumented in this encounter Care Teams Custom Framing Specialist Relationship Specialty Start Date End Date Kayley Swan, BLOCKERS SKIVER PCP - General 11/29/[address] [phone] documented as of this encounter
--- OUTSIDE RECORDS SUMMARY | 2021-12-06 00:30 | XMS_ITS | Encounter Summary ---
:1960 Author Organization [facility] Address [address] [place] [address] Care Team Providers Name Role Phone Kayley Swan TALENT REP Primary Care Provider Encounter Details Date Type Department Care Team Description 05/05/2001 Results Only [facility] - Francois Deleon MD [address] [place] [phone] (Wo rk) Social History Tobacco Use Types Packs/Day Years Used Date Never Assessed Sex Assigned at Date Recorded Not on file documented as of this encounter Plan of Treatment Not on filedocumented as of this encounter Procedures Procedure Name Priority Date/Time Associated Diagnosis Comme nts CYTOPATHOLOGY Routine 05/05/2001 0:00 EST Results for this procedure are i n the results section . documented in this encounter Results CYTOPATHOLOGY (05/05/2001 0:00 EST) Pathology Report: CYTOPATHOLOGY REPORT [facility] Reports generated via electronic interface contain fabienne ginal data; however they are lacking the format of the original re port. Caution should be taken when reading/interpreting unfo rmatted reports. Name: ? SANGITA FLOR ? Accession #: ? [id number] : ? 1960 (Age: 41) ??F ?Collect Date: ? 09/2000 Location: ? [facility] ? Receive Date : ? 05/07/2001 Provider: ?FRANCOIS HURD MD Copy to: ? Specimen/Source: ?ThinPrep Pap Test, Cervix/ Endocervix Last Menstrual Period: ? 04/26/01 Hormonal/Contraceptive Status: ? Control Pills Previous Gynecologic Pathology: ? ELLIOTT: 12/14/00 ? SPECIMEN ADEQUACY ? Satisfactory for evaluation. GENERAL CATEGORIZATION ? Within Normal Limits ? Document reviewed and electronically signed by: ? DAVID Vasquez(ASCP)(IAC) ? Report Date: ??05/12/2001 15:20 End of Report Specimen Performing Organization Address City/State/ZIP Code Phon e Number [facility] [address] [place] [address] SERVICES [facility] [address] [place] [address] documented in this encounter Visit Diagnoses Not on filedocumented in this encounter Care Teams Police Commissioner Relationship Specialty Start Date End Date Kayley Swan NP PCP - General 11/29/[address] [place] [phone] documented as of this encounter
--- OUTSIDE RECORDS SUMMARY | 2021-12-06 00:30 | XMS_ITS | Encounter Summary ---
:1960 Author Organization [facility] [place] [address] Care Team Providers Name Role Phone Landon Estrada MD Primary Care Provider Encounter Details Date Type Department Care Team Description 06/14/2010 Procedure visit Gastroenterology at [facility], [facility] [place] [phone] Social History Tobacco Use Types Packs/Day Years Used Date Never Assessed Sex Assigned at Date Recorded Not on file documented as of this encounter Plan of Treatment Not on filedocumented as of this encounter Visit Diagnoses Not on filedocumented in this encounter Care Teams Commercial Escrow Officer Relationship Specialty Start Date End Date Landon Estrada MD PCP - General 04/23/10 06/16/10 documented as of this encounter
--- OUTSIDE RECORDS SUMMARY | 2021-12-06 00:30 | XMS_ITS | Encounter Summary ---
:[address] [facility] Address [address] [place] [address] Care Team Providers Name Role Phone Kayley Swan KNOCKER OFF Primary Care Provider Encounter Details Date Type Department Care Team Description 09/23/2006 Results Only [facility] - Kayley Day, KNOCKER OFF conversion [address] [facility] [address] [place] [phone] (Wo rk) Social History Tobacco Use Types Packs/Day Years Used Date Never Assessed Sex Assigned at Date Recorded Not on file documented as of this encounter Plan of Treatment Not on filedocumented as of this encounter Procedures Procedure Name Priority Date/Time Associated Diagnosis Comme nts CYTOPATHOLOGY Routine 09/23/2006 0:00 EDT Results for this procedure are i n the results section . documented in this encounter Results CYTOPATHOLOGY (09/23/2006 0:00 EDT) Pathology Report: CYTOPATHOLOGY REPORT [facility] Reports generated via electronic interface contain fabienne ginal data; however they are lacking the format of the original re port. Caution should be taken when reading/interpreting unfo rmatted reports. Name: ? SANGITA FLOR ? Accession #: ? [id number] : ? 1960 (Age: 46) ??F ?Collect Date: ? 08/31 Location: ? [facility] ? Receive Date : ? 09/24/2006 Provider: ?KAYLEY SWAN KNOCKER OFF Copy to: ? Specimen/Source: ? ThinPrep Pap Test, Cervix/Endocervix, processed on [employer] ThinPrep Imaging System, with manual evaluation Last Menstrual Period: ? 05/05 Hormonal/Contraceptive Status: ? Intrauterine device Other: ? HPVA - HPV testing requested if ASC-US on the current ThinPrep Pap test. ? SPECIMEN ADEQUACY ? Satisfactory for Evaluation - transformation zone component present GENERAL CATEGORIZATION ? Negative for Intraepithelial Lesion or Malignan cy INTERPRETATION ? Shift in susan present suggestive of bacterial vaginosis. ? Document reviewed and electronically signed by: ? DAVID Gonzales(ASCP) ? Report Date: ??09/29/2006 14:49 End of Report Specimen Performing Organization Address City/State/ZIP Code Phon e Number [facility] [address] [place] [address] SERVICES [facility] [address] [place] [address] documented in this encounter Visit Diagnoses Not on filedocumented in this encounter Care Teams Urgent Care Physician Relationship Specialty Start Date End Date Kayley Swan NP PCP - General 11/29/[address] [phone] documented as of this encounter
--- OUTSIDE RECORDS SUMMARY | 2021-12-06 00:31 | XMS_ITS | Encounter Summary ---
:[address] [facility] Address [address] [place] [address] Care Team Providers Name Role Phone Kayley Swan QUALITY MANAGEMENT NURSE Primary Care Provider Encounter Details Date Type Department Care Team Description 12/16/1999 Results Only [facility] - Francois Deleon MD [address] [place] [phone] (Wo rk) Social History Tobacco Use Types Packs/Day Years Used Date Never Assessed Sex Assigned at Date Recorded Not on file documented as of this encounter Plan of Treatment Not on filedocumented as of this encounter Procedures Procedure Name Priority Date/Time Associated Diagnosis Comme nts CYTOPATHOLOGY Routine 12/16/1999 0:00 EDT Results for this procedure are i n the results section . documented in this encounter Results CYTOPATHOLOGY (12/16/1999 0:00 EDT) Pathology Report: CYTOPATHOLOGY REPORT [facility] Reports generated via electronic interface contain fabienne ginal data; however they are lacking the format of the original re port. Caution should be taken when reading/interpreting unfo rmatted reports. Name: ? SANGITA FLOR ? Accession #: ? [id number] : ? 1960 (Age: 39) ??F ?Collect Date: ? 11/29 Location: ? [facility] ? Receive Date : ? 12/19/1999 Provider: ?FRANCOIS HURD MD Copy to: ? Specimen/Source: ?Conventional Pap Test, Cer vix/Endocervix Last Menstrual Period: ? 12/09/99 Hormonal/Contraceptive Status: ? Yes ? SPECIMEN ADEQUACY ? Satisfactory for evaluation but limited by obsc uring blood. GENERAL CATEGORIZATION ? Within Normal Limits ? Document reviewed and electronically signed by: ? DAVID Smalls(ASCP) ? Report Date: ??12/20/1999 10:44 End of Report Specimen Performing Organization Address City/State/[facility] Code Phon e Number [facility] [address] [place] [address] SERVICES [facility] [address] [place] [address] documented in this encounter Visit Diagnoses Not on filedocumented in this encounter Care Teams Arborist Climber Relationship Specialty Start Date End Date Kayley Swan NP PCP - General 11/29/[address] [phone] documented as of this encounter
--- OUTSIDE RECORDS SUMMARY | 2021-12-06 00:31 | XMS_ITS | Encounter Summary ---
:1960 Author Organization [facility] Address [address] [place] [address] Care Team Providers Name Role Phone Kayley Swan ICT ANALYST Primary Care Provider Encounter Details Date Type Department Care Team Description 12/14/2000 Results Only [facility] - Francois Deleon MD [address] [place] [phone] (Wo rk) Social History Tobacco Use Types Packs/Day Years Used Date Never Assessed Sex Assigned at Date Recorded Not on file documented as of this encounter Plan of Treatment Not on filedocumented as of this encounter Procedures Procedure Name Priority Date/Time Associated Diagnosis Comme nts CYTOPATHOLOGY Routine 12/14/2000 0:00 EDT Results for this procedure are i n the results section . documented in this encounter Results CYTOPATHOLOGY (12/14/2000 0:00 EDT) Pathology Report: CYTOPATHOLOGY REPORT [facility] Reports generated via electronic interface contain fabienne ginal data; however they are lacking the format of the original re port. Caution should be taken when reading/interpreting unfo rmatted reports. Name: ? SANGITA FLOR ? Accession #: ? [id number] : ? 1960 (Age: 40) ??F ?Collect Date: ? 11/29 Location: ? [facility] ? Receive Date : ? 12/16/2000 Provider: ?FRANCOIS HURD MD Copy to: ? Specimen/Source: ?Conventional Pap Test, Cer vix/Endocervix Last Menstrual Period: ? 11/09/00 Hormonal/Contraceptive Status: ? Control Pills ? SPECIMEN ADEQUACY ? Satisfactory for evaluation. GENERAL CATEGORIZATION ? Epithelial Cell Abnormality DESCRIPTIVE DIAGNOSIS ? Atypical glandular cells of undetermined signif icance (ELLIOTT), favor reactive process. RECOMMENDATION ? Recommend repeat Pap test in 3-6 months or further follow up, as clinically indicated. ? COMMENT ? Atypical endocervical cells are present, versus tubal metaplasia. ? Document reviewed and electronically signed by: ? Sherrell Patino MD ? Report Date: ??12/31/2000 15:56 End of Report Specimen Performing Organization Address City/State/ZIP Code Phon e Number [facility] [address] [place] [address] SERVICES [facility] [address] [place] [address] documented in this encounter Visit Diagnoses Not on filedocumented in this encounter Care Teams Butcher All Round Relationship Specialty Start Date End Date Kayley Swan NP PCP - General 11/29/[address] [phone] documented as of this encounter
== END ==
PROVIDERS: PCP Nurse Practitioner Family; Visit Provider Nurse Practitioner
DX: M46.1 Sacroiliitis, not elsewhere classified (principal); M47.818 Spondylosis without myelopathy or radiculopathy, sacral and sacrococcygeal region
CPT/HCPCS: 72202

== ENCOUNTER 2022-02-13 17:55 | Emergency (ER) | payer MEDICAID, SELFPAY ==
--- NOTE | 2022-02-13 17:45 | RT.EKG_ITS ---
APPROVED REPORT Exam: Resting ECG Reason for Exam: SYNCOPE Patient Location: E HR:88 bpm ECG Measurements Heart Rate 88 AXIS WV 131 P 66 QRSd 93 QRS 9 QT 384 T 2 QTc 464 Conclusion Sinus rhythm...normal P axis, V-rate 60- 99 Probable left atrial enlargement...P >50mS, <-0.10mV V1 Low voltage, precordial leads...precordial leads <1.0mV. Sinus. No STEMI. I have reviewed and interpreted ECG and agree with software generated interpretation.
[2022-02-13 17:57] VITALS: BP 151/93; PULSE 89; RESP 20; TEMP 36.7; O2SAT 96
[2022-02-13 18:10] VITALS: RESP 18
--- NOTE | 2022-02-13 18:30 | DI.CT_ITS ---
Exam(s) CT HEAD WO EXAM: CT HEAD WO CLINICAL HISTORY: dizziness, leg weakness, r/o acute cva. TECHNIQUE: Imaging Protocol: Axial computed tomography images with coronal and sagittal reformatted images were created and reviewed COMPARISON: CT HEAD WITHOUT CONTRAST from 05/21/2010 FINDINGS: There are no skull fractures nor fluid in the visualized paranasal sinuses. There is no evidence of intracranial hemorrhage, mass effect, or shift of midline structures. There are no extra-axial fluid collections. The ventricles are not enlarged or shifted and there is no blo od within the ventricular system nor within the basal cisterns. IMPRESSION: No acute intracranial findings on this noninfused CT scan of the brain. RADIATION DOSE DELIVERED: 634.13mGy.cm Total DLP DATA REPOSITORY: All CT scans at this facility are submitted to the National Radiology Data Registry (NRDR) Dose Index Registry (DIR) with the [employer] ([employer]). RADIATION OPTIMIZATION: All CT scans at this facility use at least one of these dose optimization te chniques: automated exposure control; mA and/or kV adjustment per patient size (includes targeted exa ms where dose is matched to clinical indication); or iterative reconstruction.
--- NOTE | 2022-02-13 18:30 | DI.RAD_ITS ---
Exam(s) XR CHEST 2V PA LATERAL EXAM: XR CHEST 2V PA LATERAL CLINICAL HISTORY: dizziness, leg weakness, r/o acute disease. TECHNIQUE: 2D digital imaging was performed. COMPARISON: CR XR CHEST 1V IN DI DEPT from 08/06/2021 FINDINGS: 2 views: Heart size is normal. The mediastinum is not widened. Lungs are clear. No infiltrates nor pleural effusions. IMPRESSION: No acute pulmonary findings. DATA REPOSITORY: RADIATION DOSE DELIVERED:
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
[2022-02-13] MEDS: ACETAMINOPHEN 1,000 MG/100 ML BTL 400 MG IVPB (18:52)
[2022-02-13] MEDS: Normal Saline 1,000 ML 1000 ML IV (18:52)
[2022-02-13 19:04] LABS: Abs Immature Grans 0.01 10^3/uL (0.0-0.06); Absolute Basophil Count 0.02 10^3/uL (0.0-0.2); Absolute Eosinophil Count 0.09 10^3/uL (0.0-0.7); Absolute Lymphocyte Count 2.41 10^3/uL (1.2-3.4); Absolute Monocyte Count 0.48 10^3/uL (0.1-0.8); Absolute Neutrophil Count 2.83 10^3/uL (1.2-6.7); Basophils % 0.3; Eosinophils % 1.5; HCT 41.5 % (36.0-46.0); HGB 14.1 g/dL (11.2-15.7); Immature Grans % 0.2; Lymphocytes % 41.3; MCH 31.1 pg (27.0-33.0); MCV 92 fL (80-95); MPV 9.4 fL (8.0-11.0); Monocytes % 8.2; Neutrophils % 48.5; Platelet Count 249 10^3/uL (130-400); RBC 4.53 10^6/uL (3.93-5.22); RDW 11.6 % (11.7-14.6); RDW-SD 39.2 fL; WBC 5.84 10^3/uL (4.4-10.8)
[2022-02-13 19:27] LABS: ALT 18 U/L (14-59); AST 13 U/L (15-37); Albumin 3.9 g/dL (3.4-5.0); Alkaline Phosphatase 89 U/L (46-116); Anion Gap 6.4 mmol/L (3-11); BUN 12 mg/dL (7-18); Bilirubin, Total 0.3 mg/dL (0.2-1.0); CO2 29.6 mmol/L (21.0-32.0); CREATININE 0.8 mg/dL (0.55-1.02); Calcium 8.9 mg/dL (8.5-10.1); Chloride 106 mmol/L (98-107); Estimated GFR 82.74 (mL/min/1.73m2); Glucose 102 mg/dL (74-106); Magnesium 2.3 mg/dL (1.8-2.4); Potassium 3.7 mmol/L (3.5-5.1); Sodium 142 mmol/L (136-145); Total Protein 7.1 g/dL (6.4-8.2); Troponin I < 50 ng/L (<or=60)
[2022-02-13] MEDS: Dexamethasone 10 MG/ML VIAL IVP (19:36)
--- NOTE | 2022-02-13 19:38 | DI.VRAD_ITS ---
PROCEDURE INFORMATION: Exam: CT Head Without Contrast Exam date and time: 02/13/2022 7:04 PM Age: 62 years old Clinical indication: Dizziness and weakness, extremity and other: Dizziness, leg weakness, R/O CVA; Bilateral TECHNIQUE: Imaging protocol: Computed tomography of the head without contrast. Radiation optimization: All CT scans at this facility use at least one of these dose optimization techniques: automated exposure control; mA and/or kV adjustment per patient size (includes targeted exams where dose is matched to clinical indication); or iterative reconstruction. COMPARISON: MR CERVICAL SPINE WO 01/24/2020 2:11 PM FINDINGS: Brain: Cerebral sulci show bilateral symmetry with no supratentorial mass or mass effect detected. Brainstem and cerebellum are unremarkable. There is no evidence of acute intracranial hemorrhage. Cerebral ventricles: Ventricular and cisternal spaces are normal in size and configuration and there is no midline shift or hydrocephalus seen. Paranasal sinuses: Grossly clear throughout. Mastoid air cells: Grossly clear bilaterally. Bones/joints: Bony calvarium and skull base are intact and no acute fractures are detected. Soft tissues: Unremarkable. IMPRESSION: Unremarkable noncontrast head CT with no evidence acute infarct, recent hemorrhage or hydrocephalus. No acute intracranial process detected. Dictated and Authenticated by: Kevin Greene MD. Ordering:CHARBEL Sherwood MD
--- NOTE | 2022-02-13 19:39 | DI.VRAD_ITS ---
PROCEDURE INFORMATION: Exam: XR Chest Exam date and time: 02/13/2022 7:06 PM Age: 62 years old Clinical indication: Other: Dizziness, leg weakness TECHNIQUE: Imaging protocol: Radiologic exam of the chest. Views: 2 views. COMPARISON: CR XR CHEST 1V IN DI DEPT 08/06/2021 4:23 PM FINDINGS: Lungs: Lungs are clear throughout with no mass or consolidation detected. Pleural spaces: No pneumothorax or pleural effusion detected. Heart/Mediastinum: Heart size is normal and vessel margins are sharply defined. Bones/joints: No acute osseous lesions are detected. IMPRESSION: No acute findings. Dictated and Authenticated by: Kevin Greene MD. Ordering:CHARBEL Sherwood MD
[2022-02-13 19:41] LABS: COVID-19 PCR Negative (Negative); Influenza A PCR Negative (Negative); Influenza B PCR Negative (Negative); RSV PCR Negative (Negative)
[2022-02-13 20:46] VITALS: BP 126/69; PULSE 76; PULSE 85; RESP 13; O2SAT 96
[2022-02-13 20:53] VITALS: BP 145/78; PULSE 78
[2022-02-13 21:00] VITALS: TEMP 36.6
== END 2022-02-13 21:14 | disposition home or self-care (01) ==
PROVIDERS: Physician Assistant; Emergency Provider Emergency Medicine
DX: R42 Dizziness and giddiness (principal); R53.1 Weakness; H92.02 Otalgia, left ear; I10 Essential (primary) hypertension; E11.9 Type 2 diabetes mellitus without complications; Z87.891 Personal history of nicotine dependence; Z20.822 Contact with and (suspected) exposure to COVID-19
CPT/HCPCS: 80053; 87637; 93005; 96361; 96374; 96375; 99285; 70450; 71046; 81003; 83735; 84484; 85025; 93010; 99284; J0131; J1100

== ENCOUNTER 2022-06-25 08:24 | Outpatient (CLI) | payer MEDICAID, SELFPAY ==
[2022-06-25 08:37] VITALS: BP 125/81; PULSE 98; RESP 20; TEMP 36.8; O2SAT 96
[2022-06-25 09:10] VITALS: BP 142/82; PULSE 106; RESP 21; O2SAT 97
--- NOTE | 2022-06-25 09:10 | DI.RAD_ITS ---
Exam(s) XR PAIN CLINIC LUMBAR SP 2V EXAM: XR PAIN CLINIC LUMBAR SP 2V CLINICAL HISTORY: DX: lumbar radiculopathy. TECHNIQUE: Fluoroscopy was provided for the referring physician for guidance with performing pain cl inic injection procedure. COMPARISON: No exams were available for comparison FINDINGS: Please see procedure note for details. Fluoro time: 13.2 seconds RADIATION DOSE DELIVERED: Ka,r=5.16 mGy
--- NOTE | 2022-06-25 09:14 | PDOC.PAIN_ITS ---
Date of service: 06/25/22 Time of Service: 09:17 Pain Clinic Procedure Note Procedure Note Procedure Note: Lumbar Epidural Steroid Injection Procedure Note COMMENTS: She has low back pain with radiation to the bilateral legs. She did very well with her last LESI. Pre-procedure pain VAS was 7/10. Dx: Lumbosacral radiculopathy Pinky Taylor has been referred to the [facility] for lumbar epidural steroid injection. The patient was greeted by the nurse who verified patients name and . Patient was then taken to the fluoroscopy suite. The patient was interviewed and the medial record reviewed. There were no medical, pharmacologic, radiographic, or other structural contraindications to attempting fluoroscopically guided lumbar epidural steroid injection. Risks and expected side effects as well as potential benefits of the procedure were reviewed and voiced concerns expressed. The patient consent form was signed and witnessed. Standard patient time-out procedure was performed. The patient was placed in the prone position on the fluoroscopy table and automated blood pressure cuff and pulse oximeter applied. The skin entry point for entering/approaching the epidural space at L5-S1 and marked. Following thorough chlorhexadine preparation of the skin and draping and 1% lidocaine infiltration of the skin entry point and subcutaneous tissues, a 18 gauge Touhy needle was placed under fluoroscopic guidance and with loss of resistance technique into the epidural space. Needle tip placement and depth were aided and confirmed by fluoroscopy. There was no paresthesia or return of blood or CSF through the needle. 1 cc's of Omnipaque 240 was injected with clear epidural spread confirmed with fluoroscopy. 80mg depomedrol was injected. There was not any unusual discomfort expressed by Pinky Taylor. Patient's vital signs were stable throughout the procedure and were as recorded in nursing records. Follow up plans and appointments were discussed with patient. Post procedure instruction was given as documented in nursing records and having met discharge criteria and was discharged from the [facility]. COMMENTS: If this procedure is helpful, it can be completed up to 3 times per 12 months. Post-procedure pain VAS was 0/10. Parish Cueva DO, MPH [facility]-Pain Management [facility]
[2022-06-25] MEDS: Omnipaque 240 MG/ML 50 ML BTL IJ (09:20)
[2022-06-25] MEDS: methylPREDNISolone ACETATE 80 MG/ML VIAL IJ (09:20)
== END 2022-06-25 08:25 | disposition home or self-care (01) ==
LOC: PC 08:24
PROVIDERS: PCP Nurse Practitioner Family; Visit Provider Preventive Medicine Occupational Medicine
DX: M54.17 Radiculopathy, lumbosacral region (principal)
CPT/HCPCS: 62323; 72100; J1040; Q9967

== ENCOUNTER 2022-08-12 21:09 | Outpatient (REF) | payer MEDICAID, SELFPAY | END 2022-08-12 21:10 | disposition home or self-care (01) | LOC: LBN 21:09 | PROVIDERS: PCP Nurse Practitioner Family; Visit Provider Nurse Practitioner Family | DX: R10.9 Unspecified abdominal pain (principal); R82.998 Other abnormal findings in urine | CPT/HCPCS: 87086 ==

== ENCOUNTER 2022-08-18 16:50 | Outpatient (CLI) | payer MEDICAID, SELFPAY ==
--- NOTE | 2022-08-18 16:30 | DI.RAD_ITS ---
Exam(s) XR ABDOMEN FLAT PLATE EXAM: XR ABDOMEN FLAT PLATE CLINICAL HISTORY: evaluate for constipation R10.9 ABD PAIN. TECHNIQUE: 2D digital imaging was performed. COMPARISON: No exams were available for comparison FINDINGS: Two views: There are multiple air-filled bowel loops in the abdomen pelvis. None grossly over distended and the stomach filled with air but not overly distended. No obvious free air. Pessary device noted over the lower pelvis. Regional bones unremarkable. No abnormal calcifications in the kidneys course of the ureters. IMPRESSION: Air-filled but not grossly over dilated small bowel and large bowel loops. DATA REPOSITORY: RADIATION DOSE DELIVERED:
--- NOTE | 2022-08-18 17:20 | DI.VRAD_ITS ---
PROCEDURE INFORMATION: Exam: XR Abdomen Exam date and time: 08/18/2022 4:51 PM Age: 62 years old Clinical indication: Abdominal pain; Other: Constipation TECHNIQUE: Imaging protocol: Radiologic exam of the abdomen. Views: Frontal supine view of the abdomen. 1 View. COMPARISON: CT ABDOMEN PELVIS W 08/06/2021 4:23 PM FINDINGS: Gastrointestinal tract: Moderate to large stool in the colon. Gaseous distention in the small and large bowel noted. No free air Bones/joints: Unremarkable. IMPRESSION: Non-specific bowel gas pattern as described. Findings in keeping with the given clinical history of constipation Dictated and Authenticated by: Liam Cannon MD. Ordering:JESUS Chávez MD
== END 2022-08-18 17:10 ==
LOC: DI 16:53
PROVIDERS: PCP Nurse Practitioner Family; Visit Provider Nurse Practitioner Family
DX: R10.9 Unspecified abdominal pain (principal); K59.39 Other megacolon
CPT/HCPCS: 74018

== ENCOUNTER 2022-08-18 17:06 | Outpatient (REF) | payer MEDICAID, SELFPAY ==
[2022-08-18 21:00] LABS: Abs Immature Grans 0.01 10^3/uL (0.0-0.06); Absolute Basophil Count 0.02 10^3/uL (0.0-0.2); Absolute Eosinophil Count 0.11 10^3/uL (0.0-0.7); Absolute Lymphocyte Count 2.47 10^3/uL (1.2-3.4); Absolute Neutrophil Count 1.93 10^3/uL (1.2-6.7); Basophils % 0.4; Eosinophils % 2.2; HCT 40.7 % (36.0-46.0); HGB 14.1 g/dL (11.2-15.7); Immature Grans % 0.2; MCH 31.3 pg (27.0-33.0); MCHC 34.6 % (32.0-36.0); MCV 90 fL (80-95); MPV 9.5 fL (8.0-11.0); Monocytes % 8.1; Neutrophils % 39.1; Platelet Count 250 10^3/uL (130-400); RBC 4.51 10^6/uL (3.93-5.22); RDW 11.9 % (11.7-14.6); RDW-SD 39.5 fL; WBC 4.94 10^3/uL (4.4-10.8)
[2022-08-18 21:02] LABS: Bilirubin Negative (Negative); Blood Small (Negative); Clarity Clear (Clear); Glucose Negative (Negative); Ketones Negative (Negative); Leukocyte Esterase Negative (Negative); Nitrite Negative (Negative); Urobilinogen 0.2 mg/dL (Up to 0.2); pH 5.5 (5-8)
[2022-08-18 21:09] LABS: ALT 19 U/L (14-59); AST 11 U/L (15-37); Albumin 4.1 g/dL (3.4-5.0); Alkaline Phosphatase 93 U/L (46-116); Amylase 45 U/L (25-115); Anion Gap 9.5 mmol/L (3-11); BUN 11 mg/dL (7-18); Bilirubin, Total 0.5 mg/dL (0.2-1.0); CO2 27.5 mmol/L (21.0-32.0); CREATININE 0.6 mg/dL (0.55-1.02); Calcium 9.2 mg/dL (8.5-10.1); Chloride 108 mmol/L (98-107); Glucose 123 mg/dL (74-106); Lipase 29 U/L (16-77); Potassium 3.9 mmol/L (3.5-5.1); Sodium 145 mmol/L (136-145)
[2022-08-18 21:14] LABS: Bacteria Negative HPF (Negative); C & S Indicated? No; Casts Negative LPF (Negative); Crystals Negative HPF (Negative); Epithelial Cells Few HPF (Negative); Mucus Negative (Negative); WBC 0-2 HPF (0-5)
== END 2022-08-18 17:07 | disposition home or self-care (01) ==
LOC: LBN 17:06
PROVIDERS: PCP Nurse Practitioner Family; Visit Provider Nurse Practitioner Family
DX: R10.84 Generalized abdominal pain (principal); N39.0 Urinary tract infection, site not specified; R39.89 Other symptoms and signs involving the genitourinary system
CPT/HCPCS: 80053; 83690; 81003; 81015; 82150; 85025

== ENCOUNTER 2022-09-01 14:10 | Emergency (ER) | payer MEDICAID, SELFPAY ==
[2022-09-01 14:17] VITALS: BP 137/97; PULSE 85; RESP 18; O2SAT 97
[2022-09-01 14:20] VITALS: TEMP 36.7
--- NOTE | 2022-09-01 14:27 | NUR.NOTE ---
blood sugar 115 at this time
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
--- NOTE | 2022-09-01 14:51 | NUR.NOTE ---
MD Carlson engaged with ptLeena ramirez from ED.
== END 2022-09-01 14:51 | disposition left against medical advice (07) ==
PROVIDERS: Emergency Provider Student in an Organized Health Care Education/Training Program; PCP Nurse Practitioner Family
DX: Z71.1 Person with feared health complaint in whom no diagnosis is made (principal)

== ENCOUNTER 2022-09-15 00:42 | Outpatient (CLI) | payer MEDICAID, SELFPAY ==
--- NOTE | 2022-09-15 08:15 | DI.RAD_ITS ---
Exam(s) XR KNEE RT 3V AP,LAT,AKHIL EXAM: XR KNEE RT 3V AP,LAT,AKHIL CLINICAL HISTORY: increasing pain,M25.561,M25,561. TECHNIQUE: 2D digital imaging was performed. COMPARISON: CR XR knee RT 2V AP,lat from 12/16/2018 FINDINGS: 3 views No evidence fracture or obvious joint effusion. No joint space narrowing. No osteophytes. Bone den sity normal. No osseous. IMPRESSION: No significant osseous findings in the knee. No change compared November 2018. DATA REPOSITORY: RADIATION DOSE DELIVERED:
--- NOTE | 2022-09-15 08:15 | DI.RAD_ITS ---
Exam(s) XR KNEE LT 3V AP,LAT,AKHIL EXAM: XR KNEE LT 3V AP,LAT,AKHIL CLINICAL HISTORY: increasing pain,BILAT, M25.562,M25.561. TECHNIQUE: 2D digital imaging was performed. COMPARISON: No exams were available for comparison FINDINGS: 3 views No evidence of fracture. Small amount joint fluid. Bone density normal. No joint space narrowing. No osseous lesions. IMPRESSION: No significant osseous findings. Mild increased joint fluid. DATA REPOSITORY: RADIATION DOSE DELIVERED:
== END 2022-09-15 01:02 ==
LOC: DI 00:44
PROVIDERS: PCP Nurse Practitioner Family; Visit Provider Nurse Practitioner Family
DX: M25.561 Pain in right knee (principal); M25.562 Pain in left knee
CPT/HCPCS: 73562

== ENCOUNTER 2022-10-01 15:25 | Outpatient (CLI) | payer MEDICAID, SELFPAY ==
--- NOTE | 2022-10-01 06:00 | DI.RAD_ITS ---
Exam(s) XR PAIN CLINIC LUMBAR SP 2V EXAM: XR PAIN CLINIC LUMBAR SP 2V CLINICAL HISTORY: Dx: Lumbar Radiculopathy TECHNIQUE: 2D and realtime digital imaging was performed. CONTRAST MATERIAL: Refer to procedure report. COMPARISON: No exams were available for comparison FINDINGS: Fluoroscopy was provided for Dr. Cueva during the performance of a lumbar steroid epidural injection. Please refer to the procedure report for complete details. Ka,r=4.32 mGy IMPRESSION:
[2022-10-01 15:40] VITALS: BP 157/94; PULSE 87; RESP 20; TEMP 36.6; O2SAT 96
[2022-10-01] MEDS: methylPREDNISolone ACETATE 80 MG/ML VIAL IJ (16:13)
[2022-10-01] MEDS: Omnipaque 240 MG/ML 50 ML BTL IJ (16:13)
[2022-10-01 16:20] VITALS: BP 158/80; PULSE 96; RESP 16; O2SAT 99
--- NOTE | 2022-10-01 16:25 | PDOC.PAIN ---
Date of service: 10/01/22 Time of Service: 16:35 Pain Managment Procedure Note Procedure Note Procedure Note: Lumbar Epidural Steroid Injection Procedure Note COMMENTS: She had this procedure on 06/25/22 and had 60% pain relief for 3 months. Dx: Lumbosacral radiculopathy Pre-procedure pain VAS was 10/10 Pinky Taylor has been referred to the [facility] for lumbar epidural steroid injection. The patient was greeted by the nurse who verified patients name and . Patient was then taken to the fluoroscopy suite. The patient was interviewed and the medial record reviewed. There were no medical, pharmacologic, radiographic, or other structural contraindications to attempting fluoroscopically guided lumbar epidural steroid injection. Risks and expected side effects as well as potential benefits of the procedure were reviewed and voiced concerns expressed. The patient consent form was signed and witnessed. Standard patient time-out procedure was performed. The patient was placed in the prone position on the fluoroscopy table and automated blood pressure cuff and pulse oximeter applied. The skin entry point for entering/approaching the epidural space at L5-S1 and marked. Following thorough chlorhexadine preparation of the skin and draping and 1% lidocaine infiltration of the skin entry point and subcutaneous tissues, a 18 gauge Touhy needle was placed under fluoroscopic guidance and with loss of resistance technique into the epidural space. Needle tip placement and depth were aided and confirmed by fluoroscopy. There was no paresthesia or return of blood or CSF through the needle. 1 cc's of Omnipaque 240 was injected with clear epidural spread confirmed with fluoroscopy. 80mg depomedrol was injected followed by 1 cc of 1% Lidocaine and the needle was removed. There was not any unusual discomfort expressed by Pinky Taylor. Patient's vital signs were stable throughout the procedure and were as recorded in nursing records. Follow up plans and appointments were discussed with patient. Post procedure instruction was given as documented in nursing records and having met discharge criteria and was discharged from the [facility]. COMMENTS: If this procedure is helpful (improved pain and/or function by at least 50% for at least 3 months), it can be completed up to 4 times per 12 months. Parish Cueva DO, MPH [facility]-Pain Management [facility]
== END 2022-10-01 15:26 | disposition home or self-care (01) ==
PROVIDERS: PCP Nurse Practitioner Family; Visit Provider Preventive Medicine Occupational Medicine
DX: M54.17 Radiculopathy, lumbosacral region (principal)
CPT/HCPCS: 62323; 72100; J1040; Q9967

== ENCOUNTER 2022-10-08 16:34 | Outpatient (REF) | payer MEDICAID, SELFPAY ==
[2022-10-08 20:59] LABS: Bilirubin Negative (Negative); Blood Small (Negative); Clarity Clear (Clear); Glucose Negative (Negative); Ketones Negative (Negative); Leukocyte Esterase Small (Negative); Nitrite Negative (Negative); Urobilinogen 0.2 mg/dL (Up to 0.2)
[2022-10-08 21:08] LABS: Bacteria Rare HPF (Negative); C & S Indicated? Yes; Crystals Negative HPF (Negative); Epithelial Cells Rare HPF (Negative); Mucus Trace (Negative); RBC 0-2 HPF (0-2); WBC 0-2 HPF (0-5)
== END 2022-10-08 16:35 | disposition home or self-care (01) ==
LOC: LBN 16:34
PROVIDERS: PCP Nurse Practitioner Family; Visit Provider Physician Assistant
DX: N89.8 Other specified noninflammatory disorders of vagina (principal); R30.0 Dysuria; R39.89 Other symptoms and signs involving the genitourinary system
CPT/HCPCS: 81003; 81015; 87086; 87480; 87510; 87660

== ENCOUNTER 2022-10-11 15:59 | Emergency (ER) | payer MEDICAID, SELFPAY ==
--- NOTE | 2022-10-11 15:45 | RT.EKG_ITS ---
APPROVED REPORT Exam: Resting ECG Reason for Exam: chest pain Patient Location: E HR:98 bpm ECG Measurements Heart Rate 98 AXIS MS 125 P 61 QRSd 95 QRS 0 QT 363 T 7 QTc 466 Conclusion Sinus rhythm...normal P axis, V-rate 60- 99 Low voltage, precordial leads...precordial leads <1.0mV
[2022-10-11 16:00] VITALS: BP 184/99; PULSE 100; TEMP 37.1; O2SAT 98
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
[2022-10-11 16:45] LABS: Bilirubin Negative (Negative); Blood Small (Negative); Clarity Clear (Clear); Glucose Negative (Negative); Ketones Negative (Negative); Leukocyte Esterase Trace (Negative); Nitrite Negative (Negative); Urobilinogen 0.2 mg/dL (Up to 0.2); pH 6.5 (5-8)
[2022-10-11 16:51] LABS: Bacteria Few HPF (Negative); C & S Indicated? Yes; Casts Negative LPF (Negative); Crystals Negative HPF (Negative); Epithelial Cells Few HPF (Negative); Mucus Negative (Negative)
[2022-10-11 16:59] VITALS: RESP 18
[2022-10-11 17:22] LABS: Abs Immature Grans 0.01 10^3/uL (0.0-0.06); Absolute Basophil Count 0.04 10^3/uL (0.0-0.2); Absolute Eosinophil Count 0.09 10^3/uL (0.0-0.7); Absolute Monocyte Count 0.64 10^3/uL (0.1-0.8); Absolute Neutrophil Count 3.61 10^3/uL (1.2-6.7); Basophils % 0.6; Eosinophils % 1.3; HCT 43.7 % (36.0-46.0); HGB 14.7 g/dL (11.2-15.7); Immature Grans % 0.1; Lymphocytes % 35.3; MCH 30.8 pg (27.0-33.0); MCHC 33.6 % (32.0-36.0); MCV 92 fL (80-95); MPV 9.1 fL (8.0-11.0); Monocytes % 9.4; Neutrophils % 53.3; Platelet Count 259 10^3/uL (130-400); RBC 4.77 10^6/uL (3.93-5.22); RDW 11.9 % (11.7-14.6); WBC 6.79 10^3/uL (4.4-10.8)
[2022-10-11 17:38] LABS: ALT 22 U/L (14-59); AST 7 U/L (15-37); Albumin 3.9 g/dL (3.4-5.0); Alkaline Phosphatase 116 U/L (46-116); Anion Gap 6.4 mmol/L (3-11); BUN 17 mg/dL (7-18); Bilirubin, Total 0.4 mg/dL (0.2-1.0); CO2 29.6 mmol/L (21.0-32.0); CREATININE 0.7 mg/dL (0.55-1.02); Calcium 9.7 mg/dL (8.5-10.1); Chloride 107 mmol/L (98-107); Estimated GFR 97.12 (mL/min/1.73m2); Glucose 134 mg/dL (74-106); Potassium 3.3 mmol/L (3.5-5.1); Sodium 143 mmol/L (136-145); Total Protein 7.1 g/dL (6.4-8.2); Troponin I < 50 ng/L (<or=60)
[2022-10-11 17:54] VITALS: BP 141/74; PULSE 85; O2SAT 98
[2022-10-11] MEDS: Potassium Chloride 20 MEQ TABCR PO (17:54)
--- NOTE | 2022-10-13 09:20 | NUR.NOTE ---
Nursing Note: in chart for antibiotics
== END 2022-10-11 17:55 | disposition home or self-care (01) ==
PROVIDERS: Emergency Provider Emergency Medicine; PCP Nurse Practitioner Family
DX: E87.6 Hypokalemia (principal); R07.9 Chest pain, unspecified; R10.9 Unspecified abdominal pain
CPT/HCPCS: 80053; 93005; 99283; 81003; 81015; 84484; 85025; 87086; 93010

== ENCOUNTER 2022-11-03 13:49 | Outpatient (CLI) | payer MEDICAID, SELFPAY ==
--- NOTE | 2022-11-03 13:30 | DI.RAD_ITS ---
Exam(s) XR HIP PELVIS ADULT BL EXAM: XR HIP PELVIS ADULT BL CLINICAL HISTORY: hip pain. TECHNIQUE: 2D digital imaging was performed of the pelvis and bilateral hips. Three images were obt ained. AP pelvis and lateral views of both hips were obtained. COMPARISON: No exams were available for comparison FINDINGS: BONES: No acute fracture is present. No bony destructive lesion is seen. JOINTS: No dislocation present. The hip joints are well maintained as are the sacroiliac joints and s ymphysis pubis. SOFT TISSUE: Normal. IMPRESSION: Unrmarkable radiographs of bilat hips. Unremarkable radiographs of the pelvis DATA REPOSITORY: RADIATION DOSE DELIVERED:
== END 2022-11-03 13:50 | disposition home or self-care (01) ==
LOC: DIORS 13:49
PROVIDERS: PCP Nurse Practitioner Family; Referring Provider Family Medicine; Visit Provider Physician Assistant
DX: M25.551 Pain in right hip (principal); M25.552 Pain in left hip
CPT/HCPCS: 73521

== ENCOUNTER 2022-11-05 11:19 | Emergency (ER) | payer MEDICAID, SELFPAY ==
[2022-11-05] VITALS (84 sets, daily range): BP systolic 99–155; BP diastolic 52–87; PULSE 78–95; RESP 16; TEMP 36.6; O2SAT 92–98
--- NOTE | 2022-11-05 11:19 | RT.EKG_ITS ---
APPROVED REPORT Exam: Resting ECG Reason for Exam: chest pain Patient Location: E HR:85 bpm ECG Measurements Heart Rate 85 AXIS NV 125 P 62 QRSd 101 QRS 16 QT 377 T 17 QTc 448 Conclusion Sinus rhythm...normal P axis, V-rate 60- 99 Physician: stable, inverted t wave in III, unchanged from prior ekg's. no stemi
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
[2022-11-05 12:31] LABS: Source Nasal/Nares
[2022-11-05 12:41] LABS: Abs Immature Grans 0.04 10^3/uL (0.0-0.06); Absolute Basophil Count 0.01 10^3/uL (0.0-0.2); Absolute Eosinophil Count 0.01 10^3/uL (0.0-0.7); Absolute Lymphocyte Count 1.22 10^3/uL (1.2-3.4); Absolute Neutrophil Count 4.88 10^3/uL (1.2-6.7); Basophils % 0.2; Eosinophils % 0.2; HCT 40.7 % (36.0-46.0); HGB 13.8 g/dL (11.2-15.7); Immature Grans % 0.6; Lymphocytes % 18.9; MCHC 33.9 % (32.0-36.0); MCV 92 fL (80-95); MPV 9.2 fL (8.0-11.0); Monocytes % 4.6; Neutrophils % 75.5; Platelet Count 254 10^3/uL (130-400); RBC 4.45 10^6/uL (3.93-5.22); RDW 11.8 % (11.7-14.6); RDW-SD 39.5 fL; WBC 6.46 10^3/uL (4.4-10.8)
[2022-11-05 13:00] LABS: ALT 16 U/L (14-59); AST 9 U/L (15-37); Albumin 3.8 g/dL (3.4-5.0); Alkaline Phosphatase 89 U/L (46-116); Anion Gap 7.3 mmol/L (3-11); BUN 13 mg/dL (7-18); Bilirubin, Total 0.3 mg/dL (0.2-1.0); CO2 26.7 mmol/L (21.0-32.0); CREATININE 0.7 mg/dL (0.55-1.02); Calcium 8.8 mg/dL (8.5-10.1); Chloride 107 mmol/L (98-107); Estimated GFR 97.12 (mL/min/1.73m2); Glucose 159 mg/dL (74-106); Lipase 26 U/L (16-77); Potassium 3.8 mmol/L (3.5-5.1); Sodium 141 mmol/L (136-145); Total Protein 6.9 g/dL (6.4-8.2); Troponin I < 50 ng/L (<or=60)
[2022-11-05] MEDS: ACETAMINOPHEN 1,000 MG/100 ML BTL 400 MG IVPB (13:07)
[2022-11-05 13:23] LABS: COVID-19 PCR Negative (Negative)
--- NOTE | 2022-11-05 14:28 | DI.CT_ITS ---
Exam(s) CT CHEST PE CTA EXAM: CT CHEST PE CTA CLINICAL HISTORY: chest pain, tachycardia. TECHNIQUE: Imaging Protocol: Axial CT angiography was performed with multi-slice acquisition and mu lti-planar and/or 3D reconstructions. CONTRAST MATERIAL: Intravenous: Omnipaque 350 contrast volume:99 mL COMPARISON: CT CT CHEST PE CTA from 09/07/[address] ABDOMEN PELVIS W from 08/06/2021 FINDINGS: The examination is limited due to patient motion artifact. Tracheobronchial tree: Patent where visualized. Pulmonary parenchyma: No consolidation or dominant measurable mass. No architectural distortion. Pulmonary Arteries: No evidence of filling defect to suggest pulmonary emboli. Mediastinum and Lesia: No dominant adenopathy or fluid collection. The esophagus is unremarkable. Visualized thyroid gland: Unremarkable. Pleura: No effusion or pneumothorax. Heart: The heart is not dilated. No coronary artery calcifications are seen. No pericardial effusion. Aorta: Thoracic aorta non-dilated. No evidence of dissection. Atherosclerosis. Upper abdomen: Unremarkable. Soft tissues: Unremarkable. Bones: Within normal limits for the patient's age. IMPRESSION: 1. No evidence of pulmonary embolism, thoracic aortic dissection or aneurysm. 2. Findings were discussed with the emergency department at 2:53 p.m. on 11/05/2022. RADIATION DOSE DELIVERED: 386.39mGy.cm Total DLP DATA REPOSITORY: All CT scans at this facility are submitted to the National Radiology Data Registry (NRDR) Dose Index Registry (DIR) with the [employer] (A[employer]). RADIATION OPTIMIZATION: All CT scans at this facility use at least one of these dose optimization te chniques: automated exposure control; mA and/or kV adjustment per patient size (includes targeted exa ms where dose is matched to clinical indication); or iterative reconstruction.
[2022-11-05] MEDS: Normal Saline - Diluent 50 ML VIAL IV (14:31)
[2022-11-05] MEDS: Omnipaque 350 MG/ML 100 ML BTL IJ (14:32)
[2022-11-05 15:38] LABS: Troponin I < 50 ng/L (<or=60)
[2022-11-05] MEDS: Orphenadrine 60 MG/2 ML VIAL 30 MG IVP (16:02)
== END 2022-11-05 16:06 | disposition home or self-care (01) ==
PROVIDERS: Emergency Provider Physician Assistant; PCP Nurse Practitioner Family
DX: M54.9 Dorsalgia, unspecified (principal); R07.9 Chest pain, unspecified; M54.2 Cervicalgia
CPT/HCPCS: 36415; 71275; 80053; 83690; 87635; 93005; 96365; 96375; 99285; J2360; 84484; 85025; 93010; 99284; J0131; J3490

== ENCOUNTER 2023-01-01 02:52 | Outpatient (CLI) | payer MEDICAID, SELFPAY ==
--- NOTE | 2023-01-01 07:48 | DI.MRI_ITS ---
Exam(s) MR LUMBAR SPINE WO EXAM: MR LUMBAR SPINE WO CLINICAL HISTORY: increased pain, NO IMPROVEMENT INJECTIONS/PT, RADUCILITIS, M54.16. TECHNIQUE: Multiplanar multisequence MRI of the Lumbar spine was performed. COMPARISON: MR MR LUMBAR SPINE WO from 01/26/2020 FINDINGS: Bones: The last intervertebral disc space is designated the L5/S1 level for the numbering purpose of this examination. The vertebral body heights are well maintained. Alignment is satisfactory. The ma rrow signal characteristics are unremarkable. Cord: The conus tip ends at the T12 level. It is of normal size and signal intensity. T12-L1: No disc herniations or bulges are present. No central spinal canal or neural foraminal stenos is. L1-2: No disc herniations or bulges are present. No central spinal canal or neural foraminal stenosis . L2-3: No disc herniations. Mild disc bulging eccentric toward the left. No central spinal canal or neural foraminal stenosis. L3-4: No disc herniations or bulges are present. No central spinal canal or neural foraminal stenosis . L4-5: Mild concentric disc bulging. Mild facet degenerative changes. No central spinal canal or darlene ral foraminal stenosis. L5-S1: Minimal disc bulging. No disc herniations or bulges are present. Moderate facet joint degene rative changes. No central spinal canal or neural foraminal stenosis. The visualized SI joints and sacrum are well maintained. Soft tissues: The paraspinal soft tissues are unremarkable. IMPRESSION: No evidence of significant spinal stenosis or neuroforaminal narrowing. No evidence of disc herniatio n. Mild degenerative disc changes and facet degenerative changes. No significant change from prior. DATA REPOSITORY:
--- NOTE | 2023-01-01 07:48 | DI.MRI_ITS ---
Exam(s) MR CERVICAL SPINE WO EXAM: MR CERVICAL SPINE WO CLINICAL HISTORY: increased pain, no improvement with PT, SPONDYLOSIS, MYELOPATHY, RADICUL TECHNIQUE: Multiplanar multisequence MRI of the cervical spine was performed without intravenous con trast. COMPARISON: MR MR CERVICAL SPINE WO from 01/24/2020 FINDINGS: BONES: Vertebral body heights are maintained. Alignment is normal. Bone marrow signal intensity is wi thin normal limits. CERVICAL CORD: Craniovertebral junction is unremarkable. The cervical cord is normal size and signal intensity. SOFT TISSUES: Unremarkable. C2-3: No disc herniation or bulge is identified. No evidence of neural foraminal narrowing. No signi ficant central canal stenosis C3-4: No disc herniation or bulge is identified. No evidence of neural foraminal narrowing. No signif icant central canal stenosis C4-5: Small endplate osteophytes. Mild rightneural foraminal narrowing. No significant central canal stenosis C5-6: Moderate disc height. Broad-based endplate osteophytes.Mild bilateral neural foraminal narrowi ng. Mild narrowing of the AP dimension of the central canal. C6-7: Mild loss of disc height. Small endplate osteophytes. No significant neural foraminal narrowi ng. No evidence of neural foraminal narrowing. No significant central canal stenosis C7-T1: No disc herniation or bulge is identified. No evidence of neural foraminal narrowing. No signi ficant central canal stenosis IMPRESSION: Degenerative disc changes greatest at C5-6 with bilateral neural foraminal narrowing. No evidence of disc herniation. Normal cord signal. DATA REPOSITORY:
--- NOTE | 2023-01-01 07:48 | DI.MRI_ITS ---
Exam(s) MR THORACIC SPINE WO EXAM: MR THORACIC SPINE WO CLINICAL HISTORY: increased back pain, no improvement with PT, BACK PAIN, M54.9. TECHNIQUE: Multiplanar multisequence MRI of the Thoracic spine was performed. CONTRAST MATERIAL: Noncontrast COMPARISON: MR MR THORACIC SPINE WO from 01/18/2020 FINDINGS: Bones: The vertebral body heights are well maintained. Alignment is satisfactory. The signal characte ristics are unremarkable. Cord: The thoracic cord is normal size and signal intensity. No intrinsic cord lesion is present. Discs: No disc herniation or bulge is present. There are small endplate osteophytes projecting anter iorly at the mid to lower thoracic levels. Soft tissues: Normal. IMPRESSION: Mild degenerative disc changes. No evidence of disc herniation, neural foraminal narrowing or centra l canal stenosis. Normal cord signal DATA REPOSITORY:
== END 2023-01-01 03:12 ==
PROVIDERS: PCP Nurse Practitioner Family; Visit Provider Nurse Practitioner Family
DX: M99.71 Connective tissue and disc stenosis of intervertebral foramina of cervical region (principal); M47.812 Spondylosis without myelopathy or radiculopathy, cervical region
CPT/HCPCS: 72141; 72146; 72148

== ENCOUNTER 2023-01-02 02:36 | Outpatient (CLI) | payer MEDICAID, SELFPAY ==
[2023-01-02] MEDS: Inhaler, Assist Device 1 EACH MC (16:06)
[2023-01-02] MEDS: Albuterol HFA 18 GM 200 PUFF INH IH (16:06)
--- NOTE | 2023-01-05 11:25 | W.PFT ---
Date of service: 01/02/23 Time of Service: 14:53 Pulmonary Function Test Result Indications: Asthma Interpretation Spirometry: There is no airflow limitation. No significant bronchodilator response. Impression Normal spirometry Clinical Correlation therefore is recommended.
== END 2023-01-02 02:37 | disposition home or self-care (01) ==
LOC: RT 02:36
PROVIDERS: PCP Nurse Practitioner Family; Visit Provider Nurse Practitioner Family
DX: J45.909 Unspecified asthma, uncomplicated (principal)
CPT/HCPCS: 94060

== ENCOUNTER 2023-01-30 17:37 | Outpatient (REF) | payer MEDICAID, SELFPAY ==
[2023-01-30 21:07] LABS: Anion Gap 7.9 mmol/L (3-11); BUN 12 mg/dL (7-18); CO2 28.1 mmol/L (21.0-32.0); CREATININE 0.6 mg/dL (0.55-1.02); Calcium 8.9 mg/dL (8.5-10.1); Chloride 106 mmol/L (98-107); Estimated GFR 100.17 (mL/min/1.73m2); Glucose 126 mg/dL (74-106); Sodium 142 mmol/L (136-145)
[2023-01-30 21:20] LABS: Hemoglobin A1C 6.5 % (<5.7)
== END 2023-01-30 17:38 | disposition home or self-care (01) ==
LOC: LBN 17:37
PROVIDERS: PCP Nurse Practitioner Family; Visit Provider Nurse Practitioner Family
DX: E11.65 Type 2 diabetes mellitus with hyperglycemia (principal); E11.42 Type 2 diabetes mellitus with diabetic polyneuropathy
CPT/HCPCS: 80048; 83036

== ENCOUNTER 2023-03-07 17:28 | Emergency (ER) | payer MEDICAID, SELFPAY ==
[2023-03-07 17:28] VITALS: BP 165/93; PULSE 84; RESP 18; TEMP 36.9; O2SAT 97
--- NOTE | 2023-03-07 17:55 | DI.CT_ITS ---
Exam(s) CT HEAD CERVICAL SPINE WO EXAM: CT HEAD CERVICAL SPINE WO CLINICAL HISTORY: fall, midline pain, BLANCO, age. TECHNIQUE: Imaging Protocol: Axial computed tomography images with coronal and sagittal reformatted images were created and reviewed COMPARISON: CT CT HEAD WO from 02/13/2022 FINDINGS: CT Head: Ventricles and Extra axial spaces: Normal in size and morphology for the patient's age. Hemorrhage: None. Cerebral parenchyma: There is a normal blandon-white matter differentiation. Midline shift: None. Brainstem/Cerebellum: Normal. Calvarium: Normal. Visualized Paranasal sinuses/Mastoids: Clear. Soft Tissues: Unremarkable. CT Cervical Spine: Bones: No acute fracture or subluxation. Age-appropriate degenerative changes are seen in the cervica l spine. Soft Tissues: Unremarkable. Lung Apices: Clear. IMPRESSION: 1. No acute intracranial process. 2. No acute fracture or subluxation in the cervical spine. RADIATION DOSE DELIVERED: 1,353.07mGy.cm Total DLP DATA REPOSITORY: All CT scans at this facility are submitted to the National Radiology Data Registry (NRDR) Dose Index Registry (DIR) with the [employer] ([employer]). RADIATION OPTIMIZATION: All CT scans at this facility use at least one of these dose optimization te chniques: automated exposure control; mA and/or kV adjustment per patient size (includes targeted exa ms where dose is matched to clinical indication); or iterative reconstruction.
--- NOTE | 2023-03-07 18:23 | DI.VRAD_ITS ---
PROCEDURE INFORMATION: Exam: CT Head Without Contrast Exam date and time: 03/07/2023 6:04 PM Age: 63 years old Clinical indication: Injury or trauma; Blunt trauma (contusions or hematomas); Patient HX: Fall, midline pain, BLANCO TECHNIQUE: Imaging protocol: Computed tomography of the head without contrast. COMPARISON: CT HEAD WO 02/13/2022 7:04 PM FINDINGS: Brain: No edema or hemorrhage. Cerebral ventricles: No ventriculomegaly. Paranasal sinuses: No acute sinusitis. Mastoid air cells: No mastoid effusion. Bones/joints: No acute fracture. Soft tissues: No suspicious lesions. IMPRESSION: No acute intracranial findings. PROCEDURE INFORMATION: Exam: CT Cervical Spine Without Contrast Exam date and time: 03/07/2023 6:04 PM Age: 63 years old Clinical indication: Injury or trauma; Blunt trauma (contusions or hematomas); Patient HX: Fall, midline pain, BLANCO TECHNIQUE: Imaging protocol: Computed tomography of the cervical spine without contrast. COMPARISON: MR CERVICAL SPINE WO 01/01/2023 12:28 PM FINDINGS: Bones/joints: Moderate degenerative changes most pronounced at C5-C6 and C6-C7. Neural foraminal greater than central canal stenosis. No acute fracture or subluxation. Lungs: No consolidation. Soft tissues: No suspicious lesions. IMPRESSION: No cervical spine fracture. Dictated and Authenticated by: Delmi Carrero MD. Ordering:DANIEL Chowdary MD
--- NOTE | 2023-03-07 18:30 | RT.EKG_ITS ---
APPROVED REPORT Exam: Resting ECG Reason for Exam: blackout Patient Location: E HR:73 bpm ECG Measurements Heart Rate 73 AXIS MD 154 P 48 QRSd 96 QRS 6 QT 404 T 10 QTc 446 Conclusion Sinus rhythm...normal P axis, V-rate 60- 99 Low voltage, precordial leads...precordial leads <1.0mV No major change vs 11/21
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
== END 2023-03-07 18:49 | disposition home or self-care (01) ==
PROVIDERS: Emergency Provider Emergency Medicine; PCP Nurse Practitioner Family
DX: S00.83XA Contusion of other part of head, initial encounter (principal); E11.9 Type 2 diabetes mellitus without complications; G20.A1 Parkinson's disease without dyskinesia, without mention of fluctuations; S16.1XXA Strain of muscle, fascia and tendon at neck level, initial encounter; W01.0XXA Fall on same level from slipping, tripping and stumbling without subsequent striking against object, initial encounter; Y93.01 Activity, walking, marching and hiking; Y92.018 Other place in single-family (private) house as the place of occurrence of the external cause
CPT/HCPCS: 93005; 99284; 70450; 72125; 93010

== ENCOUNTER 2023-03-31 11:59 | Outpatient (REF) | payer MEDICAID, SELFPAY | END 2023-03-31 12:00 | disposition home or self-care (01) | LOC: LBN 11:59 | PROVIDERS: PCP Nurse Practitioner Family; Visit Provider Nurse Practitioner Family | DX: R30.0 Dysuria (principal) | CPT/HCPCS: 87086 ==

== ENCOUNTER 2023-04-07 13:39 | Outpatient (CLI) | payer MEDICAID, SELFPAY ==
--- NOTE | 2023-04-07 13:30 | RT.EKG_ITS ---
APPROVED REPORT Exam: Resting ECG Reason for Exam: Pre-op Examination Patient Location: O HR:104 bpm ECG Measurements Heart Rate 104 AXIS AR 121 P 60 QRSd 101 QRS 71 QT 386 T 79 QTc 508 Conclusion Sinus tachycardia...rate> 99 Low voltage, precordial leads...precordial leads <1.0mV RSR' in V1 or V2, probably normal variant...small R' only
== END 2023-04-07 13:40 | disposition home or self-care (01) ==
LOC: DI.CM 13:40
PROVIDERS: PCP Nurse Practitioner Family; Visit Provider Nurse Practitioner Family
DX: Z01.818 Encounter for other preprocedural examination (principal)
CPT/HCPCS: 93010

== ENCOUNTER 2023-04-07 14:57 | Outpatient (REF) | payer MEDICAID, SELFPAY ==
[2023-04-07 20:33] LABS: HCT 43.6 % (36.0-46.0); HGB 14.8 g/dL (11.2-15.7); MCHC 33.9 % (32.0-36.0); MCV 91 fL (80-95); MPV 10.2 fL (8.0-11.0); Platelet Count 259 10^3/uL (130-400); RBC 4.78 10^6/uL (3.93-5.22); RDW 11.8 % (11.7-14.6); RDW-SD 39.1 fL; WBC 6.55 10^3/uL (4.4-10.8)
[2023-04-07 20:47] LABS: Anion Gap 11.4 mmol/L (3-11); BUN 10 mg/dL (7-18); CO2 25.6 mmol/L (21.0-32.0); CREATININE 0.7 mg/dL (0.55-1.02); Calcium 9.5 mg/dL (8.5-10.1); Calculated LDL 60 mg/dL (<100); Chloride 103 mmol/L (98-107); Cholesterol 157 mg/dL (<200); Estimated GFR 96.52 (mL/min/1.73m2); Glucose 168 mg/dL (74-106); HDL Cholesterol 64 mg/dL (40-60); Potassium 3.8 mmol/L (3.5-5.1); Sodium 140 mmol/L (136-145); Triglyceride 165 mg/dL (<150)
[2023-04-07 21:01] LABS: Hemoglobin A1C 6.2 % (<5.7)
== END 2023-04-07 14:58 | disposition home or self-care (01) ==
LOC: LBN 14:57
PROVIDERS: PCP Nurse Practitioner Family; Visit Provider Nurse Practitioner Family
DX: R73.03 Prediabetes (principal); E78.5 Hyperlipidemia, unspecified; R53.82 Chronic fatigue, unspecified
CPT/HCPCS: 80048; 80061; 85027; 83036

== ENCOUNTER → 2023-07-01 01:06 | Outpatient (CLI) | payer MEDICAID, SELFPAY ==
--- NOTE | 2023-07-01 | DI.RAD_ITS ---
Exam(s) XR CERVICAL SP LOVE TRAUMA 2-3V EXAM: XR CERVICAL SP LOVE TRAUMA 2-3V CLINICAL HISTORY: ARTHRODESIS STATUS Z98.1 S/P ACDF. TECHNIQUE: 2D digital imaging was performed. Three images were obtained. COMPARISON: CT CT HEAD CERVICAL SPINE WO from 03/07/2023 FINDINGS: BONES: No fracture or destructive lesion. There are moderate degenerative changes seen throughout the cervical spine involving the discs and facets. Since the prior examination the patient has undergon e an anterior cervical disc fusion from C5 through C7. DISKS: Intervertebral disc spaces are maintained. ALIGNMENT: Cervical spinal alignment is within normal limits. The cervical thoracic junction is inta ct. The odontoid and atlantoaxial articulations are normal. SOFT TISSUE: Normal. The lung apices are clear. IMPRESSION: 1. Interval C5 through C7 anterior cervical disc fusion. 2. Moderate degenerative changes in the cervical spine. DATA REPOSITORY: RADIATION DOSE DELIVERED:
== END ==
PROVIDERS: PCP Nurse Practitioner Family; Visit Provider Nurse Practitioner Family
DX: M43.22 Fusion of spine, cervical region (principal)
CPT/HCPCS: 72040

== ENCOUNTER 2023-09-21 14:49 | Outpatient (REF) | payer MEDICAID, SELFPAY ==
[2023-09-21 16:39] LABS: Bilirubin Negative (Negative); Blood Moderate (Negative); Clarity Clear (Clear); Glucose Negative (Negative); Ketones Negative (Negative); Leukocyte Esterase Negative (Negative); Nitrite Negative (Negative); Specific Gravity 1.015 (1.005-1.025); Urobilinogen 0.2 mg/dL (Up to 0.2); pH 5.5 (5-8)
[2023-09-21 16:47] LABS: Bacteria Negative HPF (Negative); C & S Indicated? No; Crystals Negative HPF (Negative); Epithelial Cells Rare HPF (Negative); Mucus Negative (Negative); WBC Negative HPF (0-5)
== END 2023-09-21 14:50 | disposition home or self-care (01) ==
LOC: LBN 14:49
PROVIDERS: PCP Nurse Practitioner Family; Visit Provider Nurse Practitioner Gerontology
DX: R31.29 Other microscopic hematuria (principal)
CPT/HCPCS: 81003; 81015

== ENCOUNTER 2023-11-03 14:00 | Outpatient (REF) | payer MEDICAID, SELFPAY ==
--- NOTE | 2023-11-03 14:00 | PAPFT_PTH ---
PATIENT: Pinky Taylor LOC: [facility] U#:[id number] AGE/SX: 63/F ROOM: RE11/03/[address]: Everett Orozco DNP : 1960 BED: DIS: 11/03/2023 SPEC #: [id number] RECD: 11/04/23 13:20 STATUS: ASHLEY REChelsey #: [id number] LUNA: 11/03/23 14:[address]: Everett Christensen DEPT: [facility] Cytology RECD BY: Cathi Cobb Tissues: 1 - CX/ENDOCX FOR PAP SMEARS Procedures: PAP THIN PREP/UVM Screening HPV DNA PROBE Comments: [id number]
== END 2023-11-03 14:01 | disposition home or self-care (01) ==
LOC: LBN 14:00
PROVIDERS: PCP Nurse Practitioner Family; Visit Provider Nurse Practitioner Family
DX: Z11.51 Encounter for screening for human papillomavirus (HPV) (principal); Z01.419 Encounter for gynecological examination (general) (routine) without abnormal findings
CPT/HCPCS: 88142; 87624

== ENCOUNTER → 2024-03-21 15:09 | Outpatient (BNVA) | payer MEDICARE, MEDICAID, SELFPAY | PROVIDERS: PCP Nurse Practitioner Family; Referring Provider Nurse Practitioner Family; Visit Provider Nurse Practitioner Gerontology | DX: N39.41 Urge incontinence (principal); R31.9 Hematuria, unspecified | CPT/HCPCS: 51798; 99214 ==

== ENCOUNTER 2024-04-06 01:43 | Outpatient (CLI) | payer MEDICARE, MEDICAID, SELFPAY ==
--- NOTE | 2024-04-06 14:33 | DI.RAD_ITS ---
Exam(s) XR HAND LT COMPLETE XR WRIST LT COMPLETE EXAM: XR WRIST LT COMPLETE CLINICAL HISTORY: atraumatic LT WRIST PAIN, M25.532,. TECHNIQUE: 2D digital imaging was performed. Three views of the hand and wrist. COMPARISON: CR XR WRIST RT COMPLETE from 06/26/2020 CR XR HAND LT COMPLETE from 04/06/2024 FINDINGS: BONES: No acute fracture is present. No bony destructive lesion is seen. JOINTS: The carpal bones are normally aligned. Mild degenerative changes noted at 1st carpal metaca rpal joint. Mild degenerative changes of the interphalangeal joints of the fingers. SOFT TISSUE: Normal. IMPRESSION: Mild degenerative changes in the hand and wrist. DATA REPOSITORY: RADIATION DOSE DELIVERED:
== END 2024-04-06 02:03 ==
LOC: DI 01:43
PROVIDERS: PCP Nurse Practitioner Family; Visit Provider Nurse Practitioner Family
DX: M19.032 Primary osteoarthritis, left wrist (principal); M19.042 Primary osteoarthritis, left hand
CPT/HCPCS: 73110; 73130

== ENCOUNTER 2024-06-27 21:41 | Observation (INO) | payer MEDICARE, MEDICAID, SELFPAY ==
[2024-06-27] VITALS (15 sets, daily range): BP systolic 125–161; BP diastolic 63–125; PULSE 75–88; RESP 11–22; TEMP 37.2; O2SAT 96–99
--- NOTE | 2024-06-27 21:30 | RT.EKG_ITS ---
APPROVED REPORT Exam: Resting ECG Reason for Exam: aphasia Patient Location: E HR:89 bpm ECG Measurements Heart Rate 89 AXIS SD 132 P 80 QRSd 101 QRS 60 QT 401 T 37 QTc 489 Conclusion Sinus rhythm...normal P axis, V-rate 60- 99 Normal [place]/Interval Nonspecific ST-T changes There are no significant changes compared to prior EKG performed on 04/07/2023 at 13:56.
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
[2024-06-27 22:11] LABS: Abs Immature Grans 0.02 10^3/uL (0.0-0.06); Absolute Basophil Count 0.01 10^3/uL (0.0-0.2); Absolute Eosinophil Count 0.01 10^3/uL (0.0-0.7); Absolute Lymphocyte Count 1.96 10^3/uL (1.2-3.4); Absolute Monocyte Count 0.39 10^3/uL (0.1-0.8); Absolute Neutrophil Count 3.91 10^3/uL (1.2-6.7); Basophils % 0.2 %; Eosinophils % 0.2 %; HCT 45.7 % (36.0-46.0); HGB 15.8 g/dL (11.2-15.7); Immature Grans % 0.3 %; Lymphocytes % 31.1 %; MCH 31.3 pg (27.0-33.0); MCHC 34.6 % (32.0-36.0); MCV 91 fL (80-95); MPV 9.4 fL (8.0-11.0); Monocytes % 6.2 %; Platelet Count 270 10^3/uL (130-400); RBC 5.04 10^6/uL (3.93-5.22); RDW 11.4 % (11.7-14.6); RDW-SD 38.1 fL
[2024-06-27 22:25] LABS: PTT Activated 23.9 sec (20.6-30.2); Prothrombin Time 9.9 sec (9.1-11.1)
[2024-06-27 22:32] LABS: ALT 22 U/L (14-59); AST 11 U/L (15-37); Albumin 4.1 g/dL (3.4-5.0); Alkaline Phosphatase 118 U/L (46-116); Anion Gap 7.5 mmol/L (3-11); BUN 5 mg/dL (7-18); Bilirubin, Total 0.59 mg/dL (0.2-1.0); CO2 28.5 mmol/L (21.0-32.0); CREATININE 0.6 mg/dL (0.55-1.02); Calcium 9.2 mg/dL (8.5-10.1); Chloride 111 mmol/L (98-107); Estimated GFR 99.55 (mL/min/1.73m2); Glucose 120 mg/dL (74-106); Magnesium 2.3 mg/dL (1.8-2.4); Potassium 3.1 mmol/L (3.5-5.1); Sodium 147 mmol/L (136-145); Total Protein 7.3 g/dL (6.4-8.2); Troponin I 6 ng/L (<or=51)
[2024-06-27] MEDS: Normal Saline - Diluent 50 ML VIAL IJ (23:11)
[2024-06-27] MEDS: Omnipaque 350 MG/ML 100 ML BTL IJ (23:13)
--- NOTE | 2024-06-27 23:24 | DI.CT_ITS ---
Exam(s) CT BRAIN NECK CTA EXAM: CT BRAIN NECK CTA CLINICAL HISTORY: onset aphasia and left sided weakness. TECHNIQUE: Imaging Protocol: Axial CT angiography was performed with multi-slice acquisition and mu lti-planar and/or 3D reconstructions. CONTRAST MATERIAL: Intravenous: Omnipaque 350 Contrast volume:70 mL COMPARISON: CT CT HEAD CERVICAL SPINE WO from 03/07/2023 FINDINGS: CTA Neck W: Aortic arch anatomy: The aortic arch anatomy is conventional and there is no significant stenosis at the origin of the great vessels off of the aortic arch. No intimal flap evident. Anterior circulation: Both common carotid arteries ascend with normal luminal diameters. At the level the carotid bulbs and proximal internal carotid arteries there is minimal plaque without hemodynamically significant stenosis evident. Posterior circulation: Both vertebral arteries originate in conventional fashion off of the subclavian arteries and there is no obvious stenosis at the origin of the vertebral arteries. The right vertebral artery is dominant. It ascends with luminal diameter of 4.5 mm and without evide nce of stenosis at its origin nor within the foramen transverse area nor evidence of dissection. The smaller diameter left vertebral artery ascends with a luminal diameter of 2.5 mm, also without evide nce of thrombosis nor dissection. No significant stenosis noted at its origin off the left subclavia n artery nor stenosis in left subclavian artery proximal to the vertebral artery takeoff point. Both vertebral arteries contribute to the formation of the basilar artery at the skull base. Incidentally noted is evidence of prior fusion surgery lower cervical spine at C5-6-7 levels. There is an anterior fusion plate in there are intervertebral disc devices at C5-6 and C6-7 disc space leve ls.. CTA Brain W: Anterior circulation: Both internal carotid arteries are patent in the skull base-carotid canals as well as within the cave rnous sinuses. The supraclinoid aspects of the ICAs are patent. Both A1 segments are patent as are the anterior cer ebral arteries and there is no evidence of aneurysm at the level of the anterior communicating artery . Both middle cerebral arteries are patent with no evidence of significant stenosis nor intraluminal th rombus. There also no aneurysms of these vessels. Posterior circulation: The basilar artery ascends in the midline. Distally it gives off patent bilateral superior cerebella r arteries. Above this level the basilar artery terminates as patent bilateral posterior cerebral arteries. The left P1 segment is developmentally narrow and there is a posterior communicating artery on the left s spenser of the [id number] feeding the patent left posterior cerebral artery. There is no evidence of aneurysm at the tip of the basilar artery nor elsewhere in the [id number] is.. No vascular malformations evident in the brain. CT BRAIN: There is no evidence of intracranial hemorrhage, mass effect, or shift of midline structures. There are no extra-axial fluid collections. Ventricles are not enlarged or shifted. There are no ring enh ancing lesions in the brain and no abnormal meningeal enhancement. IMPRESSION: 1. Patent carotid arteries in the neck. No hemodynamically significant stenosis. 2. Patent vertebral arteries. Right vertebral artery is dominant. No evidence of significant stenos is nor dissection in the vertebral arteries. 3. Patent intracranial arteries. 4. No ring enhancing lesions in the brain. No vascular malformations evident. 5. No acute intracranial findings. If clinically indicated follow-up MRI can be performed. RADIATION DOSE DELIVERED: 2,022.28mGy.cm Total DLP DATA REPOSITORY: All CT scans at this facility are submitted to the National Radiology Data Registry (NRDR) Dose Index Registry (DIR) with the [employer] (ACR). RADIATION OPTIMIZATION: All CT scans at this facility use at least one of these dose optimization te chniques: automated exposure control; mA and/or kV adjustment per patient size (includes targeted exa ms where dose is matched to clinical indication); or iterative reconstruction.
--- NOTE | 2024-06-27 23:38 | DI.VRAD_ITS ---
PROCEDURE INFORMATION: Exam: CTA Head With Contrast, Arteriography Exam date and time: 06/27/2024 11:06 PM Age: 64 years old Clinical indication: Other: Aphasia/left side weakness TECHNIQUE: Imaging protocol: Computed tomographic angiography of the head with contrast. Exam focused on the arteries. 3D rendering (Not supervised by radiologist): MIP and/or 3D reconstructed images were created by the technologist. Radiation optimization: All CT scans at this facility use at least one of these dose optimization techniques: automated exposure control; mA and/or kV adjustment per patient size (includes targeted exams where dose is matched to clinical indication); or iterative reconstruction. Contrast material: OMNI; Contrast volume: 70 ml; Contrast route: INTRAVENOUS (IV); COMPARISON: CT HEAD CERVICAL SPINE WO 03/07/2023 6:04 PM FINDINGS: ANTERIOR CIRCULATION: Right internal carotid artery: Intracranial segment is patent with no significant stenosis. No aneurysm. Right middle cerebral artery: No occlusion or significant stenosis. No aneurysm. Right anterior cerebral artery: No occlusion or significant stenosis. No aneurysm. Left internal carotid artery: Intracranial segment is patent with no significant stenosis. No aneurysm. Left middle cerebral artery: No occlusion or significant stenosis. No aneurysm. Left anterior cerebral artery: No occlusion or significant stenosis. No aneurysm. POSTERIOR CIRCULATION: Right vertebral artery: No occlusion or significant stenosis. No aneurysm. Left vertebral artery: No occlusion or significant stenosis. No aneurysm. Basilar artery: No occlusion or significant stenosis. No aneurysm. Right posterior cerebral artery: No occlusion or significant stenosis. No aneurysm. Left posterior cerebral artery: No occlusion or significant stenosis. No aneurysm. Brain: No definite mass, mass effect, or midline shift. Cerebral ventricles: No ventriculomegaly. Bones/joints: Unremarkable. No acute fracture. Soft tissues: Unremarkable. IMPRESSION: No large vessel stenosis or occlusion. PROCEDURE INFORMATION: Exam: CTA Neck Without And With Contrast Exam date and time: 06/27/2024 11:06 PM Age: 64 years old Clinical indication: Other: Aphasia/left side weakness TECHNIQUE: Imaging protocol: Computed tomographic angiography of the neck without and with contrast. Exam focused on the cervical segments of the vasculature. 3D rendering (Not supervised by radiologist): MIP and/or 3D reconstructed images were created by the technologist. Radiation optimization: All CT scans at this facility use at least one of these dose optimization techniques: automated exposure control; mA and/or kV adjustment per patient size (includes targeted exams where dose is matched to clinical indication); or iterative reconstruction. Contrast material: OMNI; Contrast volume: 70 ml; Contrast route: INTRAVENOUS (IV); COMPARISON: CT HEAD CERVICAL SPINE WO 03/07/2023 6:04 PM FINDINGS: Right common carotid artery: No stenosis. No dissection or occlusion. Right internal carotid artery: No stenosis of the extracranial segment. No dissection or occlusion. Right external carotid artery: No occlusion or stenosis of the origin. Left common carotid artery: No stenosis. No dissection or occlusion. Left internal carotid artery: No stenosis of the extracranial segment. No dissection or occlusion. Left external carotid artery: No occlusion or stenosis of the origin. Right vertebral artery: No stenosis. No dissection or occlusion. Left vertebral artery: No stenosis. No dissection or occlusion. Soft tissues: No significant soft tissue swelling. Bones/joints: No acute fracture. Postsurgical changes in the lower cervical spine IMPRESSION: No stenosis or occlusion. REFERENCES: NASCET CRITERIA. The degree of stenosis in the cervical segment of the internal carotid artery is based on NASCET criteria. Normal is no stenosis. Mild is less than 50% stenosis. Moderate is 50-69% stenosis. Severe is 70% to 99% stenosis. Total occlusion is no detectable patent lumen. Dictated and Authenticated by: Liam Cannon MD. Orderin Raheem Jenkins MD
[2024-06-27] MEDS: POTASSIUM CHLORIDE 10 MEQ/100 ML BAG 100 MEQ IV_INF (23:42)
[2024-06-27] MEDS: Normal Saline 1,000 ML 250 ML IV (23:42)
[2024-06-28] VITALS (71 sets, daily range): BP systolic 111–192; BP diastolic 47–110; PULSE 69–101; RESP 11–27; TEMP 36.7–37.1; O2SAT 94–99
--- NOTE | 2024-06-28 00:23 | NUR.NOTE ---
Nursing Note: pt remains unable to communicate, continues to say yes or yup, but unsure if the pt is able to fully understand. able to move her legs and sit herself up, but cannot communicate any other way. at times the pt will sit up and remove her gown and wires, when this nurse enters the room, the pt continues to answer the same when told she is in the hospital. MD Owusu at bedside
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
--- NOTE | 2024-06-28 00:58 | NUR.NOTE ---
Nursing Note: the pt was able to answer some questions for MD Owusu, but easily forgets what she is told and will sit up and pull off her monitors and at her IV
[2024-06-28] MEDS: POTASSIUM CHLORIDE 10 MEQ/100 ML BAG 100 MEQ IV_INF (02:00)
[2024-06-28 03:25] LABS: Bilirubin Negative (Negative); Blood Trace-intact (Negative); Clarity Clear (Clear); Glucose Negative (Negative); Ketones 15 mg/dL (Negative); Leukocyte Esterase Negative (Negative); Nitrite Negative (Negative); Specific Gravity 1.015 (1.005-1.025); Urobilinogen 0.2 mg/dL (Up to 0.2); pH 8.5 (5-8)
[2024-06-28 03:33] LABS: Bacteria Rare HPF (Negative); Epithelial Cells Negative HPF (Negative); Other Cells Rare Renal (Negative); RBC 0-2 HPF (0-2); WBC 0-2 HPF (0-5)
[2024-06-28 03:34] LABS: C & S Indicated? No; Casts Negative LPF (Negative); Crystals Few Amorphous HPF (Negative); Mucus Negative (Negative)
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
--- NOTE | 2024-06-28 09:35 | DI.US_ITS ---
APPROVED REPORT EXAM: Comprehensive 2D, Doppler, and color-flow Echocardiogram Patient Location: In-Patient Room/Bed: 229 Superintendent Local: Astrid Adams RDCS (AE) Indications: STROKE Echo Enhancing Agent Indication: Rule out Shunt Agent(s) / Amount(s) Used: Agitated Saline 30.0 cc Comments: Contrast study was performed with 3 IV injections of 10ccs of agitated normal saline, at re st, with cough and post valsalva maneuver. Patient was unable to cooperate with maneuvers. Resting saline injection was negative. Other Information Study Quality: Fair. Technically limited study due to inability to position patient, uncooperative pa tient. Conclusion Normal left ventricular wall thickness and chamber size. Ejection fraction is 55%. Wall motion is n ormal Normal right ventricular size Mildly dilated left atrium. Normal right atrial size No intracardiac shunting is noted with injection of agitated saline There are no structural or hemodynamically significant valvular abnormalities Wall motion Left Ventricle The left ventricle is normal size. The overall left ventricular systolic function appears normal. Pat ient was not able to stay still or move into position. Exam done supine. There is normal left ventric ular wall thickness. Regional wall motion is not well visualized but grossly normal. There is no vent ricular septal defect visualized. LVEF is 55%. Right Ventricle Right ventricle is grossly normal in size. Right ventricular systolic function could not be assessed. Atria Left atrium is mildly dilated. The right atrium size is normal. The interatrial septum is intact with no evidence for an atrial septal defect. Aortic Valve The aortic valve is normal in structure. There is no aortic valvular stenosis. No aortic regurgitatio n is present. Mitral Valve The mitral valve is normal in structure. No evidence of mitral valve stenosis. Trace mitral regurgita tion. Tricuspid Valve The tricuspid valve is normal in structure. There is no tricuspid valve stenosis. Trace tricuspid reg urgitation. The RVSP is 18.4_ mmHg. Pulmonic Valve Pulmonic valve is not well visualized. Great Vessels The aortic root is normal in size. Ascending aorta is not well visualized. IVC is normal in size and collapses >50% with inspiration. Pericardium There is no pericardial effusion. 2D Dimensions IVSD d PLAX 0.77 cm F: 0.6-1.0 Ao Root d 2.39 cm F: 2.7 - 3.3 LVPW d PLAX 0.78 cm F: 0.6 - 1.0 LVID d PLAX 4.00 cm F: 3.8 - 5.2 LVDs 2.86 cm F: 2.2 - 3.5 LV EF Teichholz 55.4 % FS 28.43 % LV EDV (Teich) 70.1 mL LV ESV (Teich) 31.3 mL Auto EF LV EDV A4C 103.2 mL LV EDV A2C 82.4 mL LV EDV BP 93.7 mL LV ESV A4C 48.1 mL LV ESV A2C 38.3 mL LV ESV BP 43.7 mL LVEF(%) A4C 53.4 % LVEF(%) A2C 53.5 % LVEF(%) BP 53.4 % LV SV A4C 55.1 ml LV SV A2C 44.1 ml LV SV BP 50.1 ml LV CO A4C 5.2 L/min LV CO A2C 3.7 L/min LV CO BP 4.5 L/min HR A4C 93.95 BPM HR A2C 84.51 BPM LV EDV Index (BP) LA Volume LA Length A4C 5.0 cm LA Length A2C 5.6 cm LA Area A4C s 16.56 cm2 LA Area A2C s 19.44 cm2 LA Vol A4C A-L 46.22 mL LA Vol A2C A-L 57.51 mL LA Vol Biplane A-L 54.3 mL LA Vol/BSA A4C A-L LA Vol/BSA A2C A-L LA Vol/BSA BP A-L 61.0 mL/m2 LA Vol A4C MOD 43.2 mL LA Vol A2C MOD 54.2 mL LA Vol BP MOD 50.7 mL RA Volume RA Area A4C 9.0 cm2 RA ESV A4C (A-L) 20.4mL RA Vol/BSA A4C A-L RA Length A4C 3.4 cm RA ESV A4C (MOD) 19.6mL LV Diastology MV E' medial 0.097 (>0.07 m/s) MV E Vmax 0.72 (0.4-1.3 m/s) MV E/E' MED 7.40 (<14) MV A Vmax 0.85 (0.4-1.3 m/s) MV E' lateral 0.131 (>0.1 m/s) E/A Ratio 0.8 MV E/E' LAT 5.49 (<14) MV E' Average 0.114 m/s MV E/E'(average) 6.30 Aortic Valve AoV Vmax 1.37 m/s LVOT Vmax 1.01 m/s AoV Peak Grad 7.6 mmHg LVOT Peak Grad 4.1 mmHg AoV Area (Vmax) 2.34 cm2 LVOT VTI 0.194 m AoV VTI 0.268 m LVOT Mean Grad 2.4 mmHg AoV Mean Ti. 0.84 m/s LVOT SV 61.76 mL AoV Mean Grad 3.3 mmHg LVOT Diam s 2.00 cm AoV Area (VTI) 2.30 cm2 AV Regurg Peak Gr. 7.56 mmHg Velocity Ratio 0.74 Mitral Valve MV DT 234 (160-240 msec) MV Vmax TIPS 0.82 m/s MV Mean Grad 1.4 (<2mmHg) MV VTI 0.186 m Tricuspid Valve RA Pressure 3.00 mmHg TR Vmax 1.96 m/s TV S' 0.14 m/s TR Peak Grad 15.3 mmHg RVSP (TR) 18.4 mmHg
[2024-06-28] MEDS: LORazepam 2 MG/ML VIAL 1 MG IVP (13:05)
[2024-06-28] MEDS: Normal Saline Flush 10 ML SYR IVP (13:06)
[2024-06-29 08:17] VITALS: BP 137/82; PULSE 75; RESP 14; TEMP 37.1; O2SAT 97
[2024-06-29] MEDS: Haloperidol 5 MG/ML VIAL 2 MG IM (10:33)
--- NOTE | 2024-06-29 11:25 | DI.MRI_ITS ---
Exam(s) MR BRAIN WO EXAM: MR BRAIN WO CLINICAL HISTORY: stroke, left sided weakness and aphasia TECHNIQUE: Multiplanar multisequence MRI of the brain was performed. COMPARISON: CT CT BRAIN NECK CTA from 06/27/2024 FINDINGS: The examination is limited due to patient motion artifact. VENTRICLES AND EXTRA AXIAL SPACES: Normal in size and morphology for the patient's age. MIDLINE SHIFT: None. CEREBRAL PARENCHYMA: No focus of restricted diffusion to suggest acute infarct. No space-occupying le humza identified. HEMORRHAGE: None. BRAINSTEM/CEREBELLUM: Normal. CALVARIUM: Normal. VISUALIZED PARANASAL SINUSES/MASTOIDS:Clear. KAKE OF PRADO: Normal flow void. PITUITARY GLAND: Unremarkable. OTHER FINDINGS: None. IMPRESSION: 1. There is significant patient motion artifact present. 2. No evidence of restricted diffusion to suggest an acute infarct. DATA REPOSITORY:
[2024-06-29 11:56] VITALS: BP 123/70; PULSE 82; RESP 15; TEMP 36.6; O2SAT 98
[2024-06-29 15:47] VITALS: BP 136/80; PULSE 84; RESP 14; TEMP 37.1; O2SAT 98
--- NOTE | 2024-06-29 17:18 | CHAPLAIN ---
I had a brief visit with Pinky. She was sitting up in the chair watching tv. She responded to questions but didn't seem comfortable engaging in a conversation. I will try again another time.
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
[2024-06-29 18:55] VITALS: BP 151/85; PULSE 84; RESP 15; TEMP 36.9; O2SAT 97
--- NOTE | 2024-06-29 18:58 | PGE_ITS ---
Date of Service Date of service: 06/29/24 Time of Service: 18:59 Assessment and Plan Assessment and plan (1) CVA (cerebral vascular accident): Status: Chronic Assessment and plan: Stroke, presumably right parietal given left sided weakness and aphasia (patient evidently one of a minority with language centers on right). Staff report that patient's speech was far more severely limited on arrival, and that left sided weakness far more pronounced, so evidently there has been substantial improvement since arrival. Will continue ASA; also telemetry, ECHO and plan on MRI. CT and MRI are normal but MRI with motion artifact. Echo benign Plan on dc tomorrow. Will start on plavix/asa/statin and check a lipid panel Subjective Subjective Interval history since last seen: Pt seen and examined in her room this am. POC d/w pt and family this afternoon. PT does continue to have some aphasia. Exam Narrative Exam Narrative: ncat mmm eomi perrla rrr no mrg ctab no amu sntndbsa some dysphasia cn2-12 intact Objective Last Vital Signs Temp 36.9 C 06/29/24 18:55 Pulse 84 06/29/24 18:55 Resp 15 06/29/24 18:55 BP 151/85 H 06/29/24 18:55 Pulse Ox 97 06/29/24 18:55 Laboratory Results - last 24 hr 06/29/24 11:13 PT Cancelled INR Cancelled Time Spent with Patient Time Spent with Patient: 25-34 minutes Time was spent: preparing to see the patient(eg.review tests), obtaining and/or reviewing separately otained hiistory, ordering medications,tests, procedures, referring, communicating with other health child day care provider, indepentently in terpreting results, counseling the patient and care coordination
[2024-06-29] MEDS: Docusate Sodium 100 MG CAP 200 MG PO (21:12)
[2024-06-29] MEDS: Rosuvastatin 10 MG TAB PO (21:13)
[2024-06-30 01:37] VITALS: BP 137/66; PULSE 77; RESP 16; TEMP 36.9; O2SAT 98
[2024-06-30 06:34] VITALS: BP 134/93; PULSE 88; RESP 16; TEMP 37; O2SAT 98
[2024-06-30 06:57] LABS: Abs Immature Grans 0.01 10^3/uL (0.0-0.06); Absolute Basophil Count 0.05 10^3/uL (0.0-0.2); Absolute Eosinophil Count 0.04 10^3/uL (0.0-0.7); Absolute Lymphocyte Count 2.99 10^3/uL (1.2-3.4); Absolute Monocyte Count 0.83 10^3/uL (0.1-0.8); Absolute Neutrophil Count 3.02 10^3/uL (1.2-6.7); Basophils % 0.7 %; Eosinophils % 0.6 %; HCT 44.3 % (36.0-46.0); HGB 15.5 g/dL (11.2-15.7); Immature Grans % 0.1 %; Lymphocytes % 43.1 %; MCH 31.1 pg (27.0-33.0); MCV 89 fL (80-95); MPV 9.2 fL (8.0-11.0); Neutrophils % 43.5 %; Platelet Count 260 10^3/uL (130-400); RBC 4.98 10^6/uL (3.93-5.22); RDW 11.5 % (11.7-14.6); RDW-SD 36.8 fL; WBC 6.94 10^3/uL (4.4-10.8)
[2024-06-30 07:22] LABS: ALT 20 U/L (14-59); AST 18 U/L (15-37); Albumin 3.8 g/dL (3.4-5.0); Alkaline Phosphatase 112 U/L (46-116); Anion Gap 11.4 mmol/L (3-11); BUN 17 mg/dL (7-18); Bilirubin, Total 0.97 mg/dL (0.2-1.0); CO2 25.6 mmol/L (21.0-32.0); CREATININE 0.8 mg/dL (0.55-1.02); Calcium 9.4 mg/dL (8.5-10.1); Calculated LDL 142 mg/dL (<100); Chloride 108 mmol/L (98-107); Cholesterol 223 mg/dL (<200); Estimated GFR 81.72 (mL/min/1.73m2); Glucose 116 mg/dL (74-106); HDL Cholesterol 63 mg/dL (40-60); Sodium 145 mmol/L (136-145); Total Protein 6.8 g/dL (6.4-8.2); Triglyceride 94 mg/dL (<150)
[2024-06-30 07:31] LABS: Potassium 2.6 mmol/L (3.5-5.1)
--- NOTE | 2024-06-30 08:13 | PT.INTREAT ---
PT Notes Visit Reasons: Cerebrovascular accident Physical Therapy Inpatient Treatment Note Date: 06/30/2024 Precautions: Fall. Standard. Activity as tolerated. Subjective: Agreeable to doing his morning's session. Stated that she has not been hungry and does not like to eat. Denied headache, chest pain, and lightheadedness throughout ambulation activity. Objective: General Observation: Sitting at edge of bed breakfast untouched. L index finger and L thumb bent and adducted, patient with diffculty uncurling said fingers during testing. Mental Status: Alert and oriented as to person. Ability to follow instructions improved today. Raises L hand when asked about her R hand each time. Decreased awareness of R upper extremity. Pain: None reported Vital Signs: 148/85 mmHg, 78 bpm, 99% on RA after ambulation activity Bed Mobility/Transfers: Moderte cueing provided for use of B hands as needed for support, movement sequence, AD management, and posture to reduce fall risk and minimize pain report Rolling independent Supine to sit stand by assist Sit to supine stand by assist Sit to stand stand by assist Stand to sit stand by assist Bed to reclining chair stand by assist Reclining chair to bed stand by assist Gait: Covered 650 feet using no assistive devices with stand by assist for safety. Minimal path deviation, appeared to drift to the right with decreased awareness to the R--less able to negotiate obstacles on the R side and would gently hit the the linen cart on the R, utility cart on the R needing verbal cueing for safety. Some ataxia observed but no LOB. Stairs: Up and dwon 6 x 4-inch steps and 4 6-icnh steps while holding onto B rails for support with stand assist. 30-second chair rise score: 7 from edge of bed Balance: Static Sitting: Normal Dynamic Sitting: Normal Static Standing: Good Dynamic Standing: Fair Assessment: Decreased chair rise scorenorm for age signifyng B LE weakness. CTA was unremarkbale for any intracranial findings. Brain MRI did not show any evidence of restricted diffusion to suggest an acute infarct. Evolving receptive>>expressive aphasia limited today's evalaution with some atypical presentation of R hemineglect seen despite the fact that the paretic side is on the L. Overall insight to deficits decreased despite bein able to walk without assistive device. Patient may highly benefit from skilled neuro-rehabilitation to address impairments and functional deficits below. Plan of Care/Treatment Plan: 1-2x/day, 7 days/week x 1 week. Plan of care has been reviewed with the SCHOOL AGE PROGRAM TEACHER providing the service under Physical Therapy direction. Initiate Physical Therapy intervention for pain management as needed, strengthening, bed mobility, transfers, gait, stairs, balance training, and use of assistive device. DISCHARGE RECOMMENDATIONS: [] Home with no services [] [] Home with services [specify] [] Home with outpatient PT [] [] SNF for continued rehabilitation [] [] [place] Drilling Machine Operator Care [] [] SNF versus LTC based on ability to participate and progress [] [X] OP PT vs acute stroke rehab based on progress towards goals TREATMENT CODE/TIME: 28160 x 23 minutes for 2 units (08:13-08:26).
[2024-06-30] MEDS: Budesonide/Formoterol 160/4.5 6 GM 60 PUFF INH IH (08:27)
[2024-06-30] MEDS: Aspirin 81 MG CHEW PO (08:37)
[2024-06-30] MEDS: Clopidogrel 75 MG TAB PO (08:37)
[2024-06-30] MEDS: Fexofenadine 180 MG TAB PO (08:37)
[2024-06-30] MEDS: Cholecalciferol (Vitamin D3) 1,000 UNIT TAB 1000 UNITS PO (08:37)
[2024-06-30] MEDS: Calcium 600mg/Vit D 200U TAB 1 TAB PO (08:37)
[2024-06-30] MEDS: Docusate Sodium 100 MG CAP 200 MG PO (08:37)
[2024-06-30 12:07] VITALS: BP 136/89; PULSE 95; RESP 19; TEMP 36.3; O2SAT 99
--- NOTE | 2024-06-30 12:51 | SP_ITS ---
Date of service: 06/30/24 Time of Service: 10:10 Subjective Clinical (Bedside) Swallow Evaluation Speech Language Pathology Referred by: Dr Medellin Referral Type: Clinical Swallow Evaluation, Aphasia Evaluation Reason for Referral/HPI: Pinky Taylor is a 64 yo female adm to [facility] 06/28/24 with L side weakness and aphasia that had persisted for approximately 34 hours prior to ED arrival, and followed several days of nausea/vomiting. CT of the brain was negative and MRI of the brain was limited by patient motion artifact though did not demonstrate restricted diffusion to suggest acute infarct. Per hospitalist note, presumed CVA. ELECTRONIC ENGINEERING TECHNICIAN IMPRESSIONS & RECOMMENDATIONS: Pinky presented as alert and pleasant. She presents with expressive and receptive aphasia, as well as confusion/cognitive impairment. Pinky was able to follow some basic commands though not consistently. In regards to communication, she is able to speak in short phrases and communicate some needs, such as asking for ice cream. She demonstrates frequent anomia and some jargon. She is able to read aloud at paragraph level with minimal errors (reading comprehension not addressed this date). Pinky was fully unable to draw a clock- drawing arrows only along the left side of the clock. She was also unable to read a clock to identify the time. Of note, Pinky was not insightful re: deficits or aware of errors. When asked if she was having difficulty finding words after an exercise in which notable anomia was witnessed, she stated no...so-so. When asked orientation questions, Pinky was able to answer given Fo3 but demonstrated high confusion. For example, when asked the year she stated Is it August?. When this was repeated back to her she did not identify error. Per PT, patient presenting with R side neglect and has had difficulty navigating doorways. In light of confusion, anticipate patient may need up to 24/7 supervision. ELECTRONIC ENGINEERING TECHNICIAN recommends OT eval for further assessment of ADLs to weigh in on safety for discharge placement. PO assessment limited this date- though no observed s/s aspiration appreciated with PO trials. Nursing questions delay with swallowing though no observed aspiration symptoms. Standard aspiration precautions warranted in light of suspected recent CVA. FURTHER ELECTRONIC ENGINEERING TECHNICIAN SERVICES: Patient to be followed while on unit. Upon Discharge, acute rehab vs usp facility recommended. SUBJECTIVE: Patient received alert/awake, confused, agreeable to evaluation Pain Reported? None Baseline Swallow Function: Patient denies swallowing difficulty prior to admission and eats a regular diet at baseline. PO Trials Assessed: IDDSI 0 Thin Liquids IDDSI 7 Easy to Chew Fig Beatty Oral Mechanism Examination: Dentition is WFL Oral mucosa is WFL Cranial Nerve Assessment: CN V ? Trigeminal Facial Sensation WNL Jaw Strength/ROM WNL ?WNL CN VII- Facial WNL labial ROM, strength, coordination. WNL lingual sensation WNL CN IX ? Glossopharyngeal Unable to visualize palate. No evidence of nasal emissions WNL CN X ? Vagus WNL Vocal quality and volume. Strong/sharp volitional cough WNL CX XII ? Hypoglossal Pt unable to follow instructions for assessing lingual strength, but ROM/coordination WNL. Some white coating noted on lingual surface. Oral Phase Findings: WFL Pharyngeal Phase Findings: WFL Delayed swallow initiation [place] Naming Test Short Form: = 11/13 + 4 given phonemic cue + 3 given multiple choice cue Cookie Theft Picture: Cookies. transit mix operator. Dog. (Pt prompted to speak in sentences) Dog is (unintelligble) it up. (What is he eating?) Ice cream (cookies). What is going on over here- pointed at man washing dishes Here's her house, right? Clock Drawing: Patient initially reinaldo only one curved line with arrow on one end on left upper side of clock. When prompted again to write in the numbers, she reinaldo a second arrow on the other side of the curved line. She was prompted third time to write in the numbers though did not do so. Unclear if receptive language vs cognition. Client asked to read time on clock. She read as 10:00 (10:35) Reading Aloud: Paragraph level/[place] passage 6 errors: 3 word distortions, 1 word omission, 2 word substitutions Orientation: + self, town, state - Month, year (+Fo3) ASSESSMENT: Further ELECTRONIC ENGINEERING TECHNICIAN Services indicated. Patient to be followed while on unit. Suggested Referrals: Neurology Outpatient Recommendations: ? SOLIDS: 7-Regular Solids LIQUIDS: 0-Thin Liquids MEDICATIONS: As tolerated RISK MANAGEMENT: HOB upright as tolerated; upright for all PO intake. Encourage physical mobility as tolerated. Oral hygiene BID/2x per day Level of Assistance/Supervision: Intermittent supervision for all PO intake in light of confusion Education Provided to: Nursing, Patient, Physician, Case management Topics Addressed: ELECTRONIC ENGINEERING TECHNICIAN findings and recommendations PLAN: Frequency: 2-3x/week for 1-2 weeks Goals: Ski Patroller Goals: Patient will remain free from aspiration-related illness, malnutrition, and dehydration. Short Term Goals: Patient will participate in ongoing diagnostic treatment addressing areas of cognition, receptive language, expressive language. Patient will tolerate regular Diet and Thin liquids without overt s/s aspiration across 2/2 visits. ELECTRONIC ENGINEERING TECHNICIAN CPT Code: 40470?Evaluation of speech sound production with evaluation of language comprehension and expression TOTAL TIME: 35 Minutes
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
--- NOTE | 2024-06-30 14:18 | PDOC.HHF2F_ITS ---
Home Health Referral Home Health Orders Clinical synopsis of why skilled professionals are needed: TIA with residual symptoms Medical diagnosis necessitation home health referral: TIA with residual symptoms Physical Therapist: Check all that apply Increase strength & endurance for safe mobility at home: Ordered To design/establish home maintenance program: Ordered Fall reduction therapy program for patient with history of frequent falls: Ordered Home safety evaluation and teaching/gait training including stair management (if applicable): Ordered Better Breathing Program: Ordered Occupational Therapist: Evaluate and treat for patient unable to perform ADL/IADL/self-care: Ordered Upper extremity strengthening, range and motion: Ordered Speech Therapist: Check all that apply For swallow evaluation/therapy due to dysphagia: Ordered Cognition/memory: Ordered Speech/communication disorders: Ordered Smoking Pipe Mounter: Assist with community resources: Ordered Assist with superintendent terminal care planning: Ordered Encounter Date and Reason: I certify that a FTF encounter for this patient was performed on June 30, 2024 and that such encounter was related to the primary reason the patient requires home health services. The encounter was conducted in the following manner: * By me as the certifying physician, OCCUPANCY SPECIALIST, PA or * By an inpatient physician, OCCUPANCY SPECIALIST or PA during an inpatient stay who communicated findings to me, Certification And Authentication I certify that I composed the above information based on my clinical judgment relating to this patient's medical condition and, if applicable, clinical findings communicated to me by the NPP or inpatient physician who performed the FTF encounter. Name of Provider that will be monitoring home health services: Everett Ramirez
[2024-06-30 15:11] VITALS: BP 131/85; PULSE 95; RESP 18; TEMP 36.8; O2SAT 98
--- NOTE | 2024-06-30 15:49 | PDOC.CMDIS ---
Date of service: 06/30/24 Time of Service: 15:50 LACE Index Scoring Tool Questions: Length of Stay (in days): 2 Was the patient admitted via the E.D.?: Yes Comorbidities: Cerebrovascular Disease and Dementia E.D. Visits: 1 Answers: Total Score: 11 Risk of Readmission: High Risk Care Management Discharge Plan Reason for Hospitalization: CVA Discharge Plan: Pinky is discharged home today with new orders for HH RN, PT/OT, BIOMEDICAL REPAIR TECHNICIAN. Pinky was adamant that she did not want to go to rehab, and her partner will be with her 22/12. Daughter, Beth, is also heavily involved, and will transport Pinky home today. Pinky will f/u with her PCP and continue with her plan of care. Patient/Family Education Needs: Review of discharge instructions, new medications, activity, limitations and discuss ask me 3. Services Needed at Discharge: Home Health Care Services (New services PT/OT, RN, BIOMEDICAL REPAIR TECHNICIAN- [facility]) SDOH Health Related Social Needs: Health related social needs details at times...PCP aware
== END 2024-06-30 15:58 | disposition home health service (06) ==
LOC: ER 06-28 01:17 → MS 06-28 10:03
PROVIDERS: Hospitalist; Admitting Provider General Practice; Emergency Provider Emergency Medicine; PCP Nurse Practitioner Family; Visit Provider General Practice
DX: I63.9 Cerebral infarction, unspecified (principal); R47.01 Aphasia; G81.94 Hemiplegia, unspecified affecting left nondominant side; R51.9 Headache, unspecified; G89.29 Other chronic pain; G21.19 Other drug induced secondary parkinsonism; E11.42 Type 2 diabetes mellitus with diabetic polyneuropathy; M17.0 Bilateral primary osteoarthritis of knee; F43.10 Post-traumatic stress disorder, unspecified; Z87.891 Personal history of nicotine dependence; G25.81 Restless legs syndrome; K21.9 Gastro-esophageal reflux disease without esophagitis; E78.5 Hyperlipidemia, unspecified; G47.33 Obstructive sleep apnea (adult) (pediatric); J45.20 Mild intermittent asthma, uncomplicated; F41.8 Other specified anxiety disorders
CPT/HCPCS: 00123; 36415; 36416; 70496; 70498; 80053; 80061; 82962; 93005; 93306; 94640; 96360; 96372; 97162; 97530; 99285; 70551; 81003; 81015; 83735; 84484; 85025; 85610; 85730; 92523; 93010; 94664; 99222; 99232; 99239; G0378; J1630; J2060; J3480; J3490

== ENCOUNTER 2024-07-26 15:07 | Outpatient (REF) | payer MEDICARE, MEDICAID, SELFPAY ==
[2024-07-26 13:30] LABS: Abs Immature Grans 0.01 10^3/uL (0.0-0.06); Absolute Basophil Count 0.02 10^3/uL (0.0-0.2); Absolute Eosinophil Count 0.05 10^3/uL (0.0-0.7); Absolute Lymphocyte Count 1.95 10^3/uL (1.2-3.4); Absolute Monocyte Count 0.27 10^3/uL (0.1-0.8); Absolute Neutrophil Count 1.91 10^3/uL (1.2-6.7); Basophils % 0.5 %; Eosinophils % 1.2 %; HCT 41.4 % (36.0-46.0); HGB 13.9 g/dL (11.2-15.7); Immature Grans % 0.2 %; Lymphocytes % 46.3 %; MCH 31.4 pg (27.0-33.0); MCHC 33.6 % (32.0-36.0); MCV 94 fL (80-95); MPV 9.3 fL (8.0-11.0); Monocytes % 6.4 %; Neutrophils % 45.4 %; Platelet Count 237 10^3/uL (130-400); RBC 4.42 10^6/uL (3.93-5.22); RDW 11.8 % (11.7-14.6); RDW-SD 40.4 fL; WBC 4.21 10^3/uL (4.4-10.8)
[2024-07-26 13:39] LABS: ALT 17 U/L (14-59); AST 12 U/L (15-37); Albumin 3.9 g/dL (3.4-5.0); Alkaline Phosphatase 107 U/L (46-116); Anion Gap 6.3 mmol/L (3-11); BUN 9 mg/dL (7-18); Bilirubin, Total 0.45 mg/dL (0.2-1.0); CO2 29.7 mmol/L (21.0-32.0); CREATININE 0.6 mg/dL (0.55-1.02); Calcium 9.1 mg/dL (8.5-10.1); Chloride 111 mmol/L (98-107); Estimated GFR 99.55 (mL/min/1.73m2); Glucose 107 mg/dL (74-106); Potassium 4.5 mmol/L (3.5-5.1); Sodium 147 mmol/L (136-145); Total Protein 6.4 g/dL (6.4-8.2)
== END 2024-07-26 15:08 | disposition home or self-care (01) ==
LOC: LBN 15:07
PROVIDERS: PCP Nurse Practitioner Family; Visit Provider Nurse Practitioner Family
DX: I63.9 Cerebral infarction, unspecified (principal)
CPT/HCPCS: 80053; 85025

== ENCOUNTER 2024-11-02 00:57 | Outpatient (CLI) | payer MEDICARE, MEDICAID, SELFPAY ==
--- NOTE | 2024-11-02 07:30 | DI.DEXA_ITS ---
Exam(s) XR DEXA BONE DENSITY W/WO ANITA EXAM: XR DEXA BONE DENSITY W/WO ANITA CLINICAL HISTORY: screening for osteoporosis in postmenopausal state,z78.0 TECHNIQUE: COMPARISON: No exams were available for comparison FINDINGS: Lateral Spine Image: Unremarkable. No compression deformities identified. Left hip: Total T-Score: -2.5 Total Z-Score: -1.3 T- and Z-scores: Findings are consistent with osteoporosis. Lumbar Spine: Total T-Score: -2.4 Total Z-Score: -0.6 T- and Z-scores: Note is made of osteoporosis in the lumbar spine at L1 and L3 with T-scores of -2.8 -2.5 respectively. Osteoporosis is seen in the left forearm with a total T-score of -2.7 and a Z-score of -1.1. IMPRESSION: Findings of osteoporosis in the left hip, lumbar spine and left forearm.
== END 2024-11-02 01:17 ==
LOC: DI 00:57
PROVIDERS: PCP Nurse Practitioner Family; Visit Provider Nurse Practitioner Family
DX: Z78.0 Asymptomatic menopausal state (principal); Z13.820 Encounter for screening for osteoporosis; M81.0 Age-related osteoporosis without current pathological fracture
CPT/HCPCS: 77080

== ENCOUNTER 2024-11-30 02:14 | Outpatient (CLI) | payer MEDICARE, MEDICAID, SELFPAY ==
--- NOTE | 2024-11-30 08:30 | DI.RAD_ITS ---
Exam(s) XR KNEE RT 3V AP,LAT,AKHIL EXAM: XR KNEE RT 3V AP,LAT,AKHIL CLINICAL HISTORY: effusion,rt knee pain,m25.561. TECHNIQUE: 2D digital imaging was performed. COMPARISON: CR XR KNEE LT 3V AP,LAT,AKHIL from 09/15/2022 FINDINGS: 3 views No evidence of acute fracture. Small amount of increased joint fluid noted. No joint space narrowing evident. Bone density normal. No osseous lesions. IMPRESSION: Small right knee joint effusion. No acute osseous findings evident. No significant degenerative narrowing of the medial and lateral compartments. DATA REPOSITORY: RADIATION DOSE DELIVERED:
== END 2024-11-30 02:34 ==
LOC: DI 02:14
PROVIDERS: PCP Nurse Practitioner Family; Visit Provider Nurse Practitioner Family
DX: M25.561 Pain in right knee (principal)
CPT/HCPCS: 73562

== ENCOUNTER 2024-12-27 02:58 | Outpatient (CLI) | payer MEDICARE, MEDICAID, SELFPAY ==
--- NOTE | 2024-12-27 15:29 | DI.MAMMO_ITS ---
Exam(s) MAMMO SCREENING EXAM: MAMMO SCREENING CLINICAL HISTORY: screening, Z12.39. TECHNIQUE: Bilateral full field digital CC and MLO mammographic images were obtained with 3D tomosynthesis and utilizing computer aided detection (CAD). COMPARISON: Prior mammograms were reviewed. Most recent mammogram was November 2019. FINDINGS: There has been no significant change in the appearance and distribution of the fibroglandular tissue. There are no new spiculated masses nor malignant appearing microcalcification groups. There is no significant architectural distortion nor skin thickening-retraction. IMPRESSION: No radiographic evidence of malignancy. BI-RADS Category 1 - Negative Breast Density - Category B - There are scattered areas of fibroglandular density. Breast density Category C or D implies that the patient has dense breast tissue. Dense breast tissue can make it harder to find cancer on a mammogram. Dense breast tissue is also associated with an increased risk of breast cancer. This information about the result of the mammogram report was provided to the patient to raise their awareness. Use this report when you speak with the patient about their risks for breast cancer, which includes their family history. At that time, you may recommend additional screening tests (Ultrasound or MRI) as these tests may add significant information. A negative radiographic report should not delay biopsy if a dominant or clinically suspicious mass is present. Up to ten percent of cancers are not identified on mammography. A negative report may reinforce clinical impression. Adenosis and dense breasts may obscure an underlying neoplasm. False positive reports average 6 to 10%. Patient will receive a letter notifying them of these results.
== END 2024-12-27 03:18 ==
LOC: DI 02:58
PROVIDERS: PCP Nurse Practitioner Family; Visit Provider Nurse Practitioner Family
DX: Z12.31 Encounter for screening mammogram for malignant neoplasm of breast (principal); R92.323 Mammographic fibroglandular density, bilateral breasts
CPT/HCPCS: 77063; 77067

== ENCOUNTER → 2025-01-10 10:17 | Outpatient (BNVA) | payer MEDICARE, MEDICAID, SELFPAY | PROVIDERS: PCP Nurse Practitioner Family; Referring Provider Nurse Practitioner Family; Visit Provider Psychiatry & Neurology Neurology | DX: R51.9 Headache, unspecified (principal) | CPT/HCPCS: 96372 ==

== ENCOUNTER 2025-02-08 02:40 | Outpatient (CLI) | payer MEDICARE, MEDICAID, SELFPAY ==
--- NOTE | 2025-02-08 06:00 | DI.RAD_ITS ---
Exam(s) XR FOOT LT COMPLETE XR FOOT RT COMPLETE EXAM: XR FOOT LT COMPLETE CLINICAL HISTORY: Left foot pain,M79.672. TECHNIQUE: 2D digital imaging was performed. Three views of both feet. COMPARISON: CR XR FOOT RT COMPLETE from 02/08/2025 FINDINGS: BONES: No acute fracture is present. No bony destructive lesion is seen. Heel spurs. JOINTS: No dislocation present. Hammertoe deformities. SOFT TISSUE: Normal. IMPRESSION: Bilateral heel spurs and hammertoe deformities. DATA REPOSITORY: RADIATION DOSE DELIVERED:
== END 2025-02-08 03:00 ==
LOC: DI 02:40
PROVIDERS: PCP Nurse Practitioner Family; Visit Provider Podiatrist
DX: M72.2 Plantar fascial fibromatosis (principal); M79.672 Pain in left foot; M79.671 Pain in right foot; M20.42 Other hammer toe(s) (acquired), left foot; M20.41 Other hammer toe(s) (acquired), right foot; M77.32 Calcaneal spur, left foot; M77.31 Calcaneal spur, right foot; E11.42 Type 2 diabetes mellitus with diabetic polyneuropathy; M67.01 Short Achilles tendon (acquired), right ankle; M67.02 Short Achilles tendon (acquired), left ankle
CPT/HCPCS: 20550; 99213; J0702; J1100; 73630

== ENCOUNTER → 2025-03-08 13:11 | Outpatient (BNVA) | payer MEDICARE, MEDICAID, SELFPAY | PROVIDERS: PCP Nurse Practitioner Family; Referring Provider Nurse Practitioner Family; Visit Provider Podiatrist | DX: M72.2 Plantar fascial fibromatosis (principal); M79.671 Pain in right foot; M79.672 Pain in left foot; E11.42 Type 2 diabetes mellitus with diabetic polyneuropathy; M67.01 Short Achilles tendon (acquired), right ankle; M67.02 Short Achilles tendon (acquired), left ankle | CPT/HCPCS: 20550; J0702; J1100 ==

== ENCOUNTER → 2025-05-09 13:11 | Outpatient (BNVA) | payer MEDICARE, MEDICAID, SELFPAY | PROVIDERS: PCP Nurse Practitioner Family; Referring Provider Nurse Practitioner Family; Visit Provider Podiatrist | DX: M72.2 Plantar fascial fibromatosis (principal); E11.42 Type 2 diabetes mellitus with diabetic polyneuropathy; M79.671 Pain in right foot; M79.672 Pain in left foot; M67.01 Short Achilles tendon (acquired), right ankle; M67.02 Short Achilles tendon (acquired), left ankle | CPT/HCPCS: 20550; J0702; J1100 ==